=== PATIENT | male | born 1940 | race Caucasian/White ===

== ENCOUNTER 2016-05-11 16:54 | Emergency (ER) | payer OTHER, MEDICARE ==
[~2016-05-11] VITALS: Ht 182.9 cm; Wt 105.0 kg
[~2016-05-11 16:54] MED LIST: ASPI81 PO; BUPR-197 PO; COUM5TAB PO; DIAZ5 PO; DOCU100T9 PO; EX-L5TAB PO; FISH1000 PO; FURO1TAB93 PO; LISI-360 PO; METO10TA PO; METO25 PO; MULT1TAB PO; OXYC-103 PO; PRAV80 PO; PROT40TA PO; QUET100 PO; SERT-132 PO; TERA2CAP3 PO; ULTR50TA PO; WAL-10TA2 PO; WARF2.5T40 PO; ZOFR4TAB3 SL
[2016-05-11 17:04] VITALS: BP 118/69; PULSE 62; RESP 16; TEMP 98.3; O2SAT 94
[2016-05-11] MEDS ORDERED: SERT-129 PO (17:23)
[2016-05-11] MEDS ORDERED: WARF-23 PO (17:23)
[2016-05-11] MEDS ORDERED: PRAV40TA2 PO (17:23)
[2016-05-11] MEDS ORDERED: BETA0.1C TOPICAL (17:23)
[2016-05-11] MEDS ORDERED: DOCU100C PO (17:23)
[2016-05-11] MEDS ORDERED: OMEP20TA PO (17:23)
[2016-05-11] MEDS ORDERED: TERA2CAP3 PO (17:23)
[2016-05-11] MEDS ORDERED: ASPI1TAB69 PO (17:23)
[2016-05-11] MEDS ORDERED: DIAZ5TAB PO (17:23)
[2016-05-11] MEDS ORDERED: QUET-86 PO (17:23)
[2016-05-11] MEDS ORDERED: METO25TA6 PO (17:23)
[2016-05-11] MEDS ORDERED: LORA-361 PO (17:23)
[2016-05-11] MEDS ORDERED: BISA1TAB2 PO (17:23)
[2016-05-11] MEDS ORDERED: FURO40TA PO (17:23)
[2016-05-11] MEDS ORDERED: LISI-515 PO (17:23)
[2016-05-11] MEDS ORDERED: CARB1DRO17 EACH EYE (17:23)
--- NOTE | 2016-05-11 17:31 | PD ---
HPI Chief Complaint: Fall Time Seen by Provider: 17:11 Travel History International Travel<30 days: No Contact w/Intl Traveler<30days: No Traveled to known affect area: No History of Present Illness HPI This patient complains of head injury. Duration 1 hour. Symptoms severity is mild to moderate. This patient takes Coumadin for cardiac reasons. Patient slipped and fell and hit the left side of his head just past his ear. He did not have loss of consciousness. He does have a mild to moderate headache on the left side. There is no neck symptoms. This is not a distracting injury. He reiterates there were no pre-syncopal symptoms but had a mechanical slip and fall. No alleviating factors. PFSH Past Medical History Hx Anticoagulant Therapy: Yes (COUMADIN) AAA: Yes Arthritis: Yes Atrial Fibrillation: Yes Bipolar Disorder: Yes Anxiety: Yes Depression: Yes Heart Rhythm Problems: Yes Cardiac Catheterization: Yes Cardiovascular Problems: Yes High Cholesterol: Yes Chest Pain: Yes Congestive Heart Failure: Yes Coronary Artery Disease: Yes Diminished Hearing: Yes (BILAT HEARING AIDS) Diverticulitis: Yes Gastrointestinal Disorders: Yes GERD: Yes Gout: Yes Genitourinary: Yes (ENLARGED PROSTATE) Hypertension: Yes Implanted Vascular Access Dvce: No Psychiatric: Yes (DEPRESSION) Immunizations Current: Yes Myocardial Infarction: Yes (x1) Pneumonia: Yes Sleep Apnea: Yes (CPAP) PNEUMOCCOCAL Vaccine (Year): 2008 Past Surgical History Abdominal Surgery: Yes (POLYPS AND PORTION OF BOWEL REMOVAL) AICD: Yes Appendectomy: Yes Cardiac Surgery: Yes (PACEMAKER/DEFIB) Coronary Artery Bypass Graft: Yes (DOUBLE BYPASS WITH AORTIC VALVE REPLACEMENT) Coronary Stent: Yes Genitourinary Surgery: Yes (POLYPS REMOVED) Neurologic Surgery: No Pacemaker: Yes (MAR 2013) Tonsillectomy: Yes Valve Replacement: Yes Other Surgery: Yes (LEFT GREAT TOE) Social History Alcohol Use: No Tobacco Use: No (QUIT 20 + YRS AGO SMOKED 1 PPD) Substance Use: No Allergies-Medications (Allergen,Severity, Reaction): Coded Allergies: Dilaudid (Verified Allergy, Severe, Nausea/Vomiting, 05/11/16) Kiwi (Verified Allergy, Severe, RASH, 05/11/16) Neosporin (Verified Allergy, Severe, Rash, 05/11/16) Tetanus Toxoid (Verified Allergy, Severe, HIVES, 05/11/16) Reported Meds & Prescriptions Reported Meds & Active Scripts Active Zofran Odt (Ondansetron Odt) 4 Mg Tab 4 Mg SL Q6HR PRN Percocet (Oxycodone-Acetaminophen) 5-325 mg Tab 1 Tab PO Q6H PRN Reported Warfarin 5 Mg Tab 5 Mg PO DAILY Terazosin (Terazosin HCl) 2 Mg Cap 6 Mg PO HS Sertraline (Sertraline HCl) 100 Mg Tab 150 Mg PO DAILY Quetiapine ER (Quetiapine Fumarate) 50 Mg Tab 50 Mg PO HS Pravastatin 40 Mg Tab 40 Mg PO HS Omeprazole 20 Mg Tab 20 Mg PO DAILY Metoprolol Succinate ER 24 HR (Metoprolol Succinate) 25 Mg Tab 25 Mg PO DAILY Claritin (Loratadine) 10 Mg Tab 10 Mg PO DAILY Lisinopril 20 Mg Tab 20 Mg PO DAILY Furosemide 40 Mg Tab 40 Mg PO DAILY Docusate Sodium 100 Mg Cap 100 Mg PO BID Diazepam 5 Mg Tab 5 Mg PO TID PRN Eq Restore Plus Lubricant (Carboxymethylcellulose Sodium) 0.5 % Jacoby 1 Drop EACH EYE QID Eq Gentle Laxative (Bisacodyl) 5 Mg Tab 5 Mg PO DIRECTED Betamethasone Valerate Topical 0.1% Cream 1 Applic TOPICAL BID Aspirin 81 Mg Tabdr 81 Mg PO DAILY Review of Systems General / Constitutional: No: Fever Eyes: No: Visual changes HENT: Positive: Headaches Cardiovascular: No: Chest Pain or Discomfort Respiratory: No: Shortness of Breath Gastrointestinal: No: Abdominal Pain Genitourinary: No: Dysuria Musculoskeletal: No: Pain Skin: No Rash Neurologic: Positive: Headache, No: Weakness Psychiatric: No: Depression Endocrine: No: Polydipsia Hematologic/Lymphatic: No: Easy Bruising Physical Exam Narrative GENERAL: Well-nourished, well-developed patient in no apparent distress. SKIN: Warm and dry. HEAD: Has 3 cm laceration behind the left ear. No crepitus or bony tenderness. Normocephalic. EYES: Pupils equal and round. No scleral icterus. No injection or drainage. ENT: No nasal bleeding or discharge. Mucous membranes pink and moist. NECK: Trachea midline. No JVD. No midline tenderness CARDIOVASCULAR: Regular rate and rhythm. No murmur appreciated. RESPIRATORY: No accessory muscle use. Clear to auscultation. Breath sounds equal bilaterally. GASTROINTESTINAL: Abdomen soft, non-tender, nondistended. Hepatic and splenic margins not palpable. MUSCULOSKELETAL: No obvious deformities. No clubbing. No cyanosis. No edema. NEUROLOGICAL: Awake and alert. No obvious cranial nerve deficits. Motor grossly within normal limits. Normal speech. PSYCHIATRIC: Appropriate mood and affect; insight and judgment normal. Data Data Last Documented VS Vital Signs Date Time Temp Pulse Resp B/P Pulse Ox O2 Delivery O2 Flow Rate FiO2 05/11/16 17:35 16 05/11/16 17:04 98.3 62 118/69 94 Orders Complete Blood Count With Diff (05/11/16 17:26) Basic Metabolic Panel (Bmp) (05/11/16 17:26) Prothrombin Time / Inr (Pt) (05/11/16 17:26) Iv Access Insert/Monitor (05/11/16 17:26) Ct Brain W/O Iv Contrast(Rout) (05/11/16 ) Acetamin-Hydrocod 325-5 Mg (Nichols 5-325 (05/11/16 18:45) Ondansetron Odt (Zofran Odt) (05/11/16 18:45) Labs Laboratory Tests Test 05/11/16 17:45 White Blood Count 7.2 TH/MM3 Red Blood Count 5.02 MIL/MM3 Hemoglobin 14.4 GM/DL Hematocrit 42.6 % Mean Corpuscular Volume 84.8 FL Mean Corpuscular Hemoglobin 28.7 PG Mean Corpuscular Hemoglobin 33.8 % Concent Red Cell Distribution Width 12.4 % Platelet Count 155 TH/MM3 Mean Platelet Volume 7.6 FL Neutrophils (%) (Auto) 66.4 % Lymphocytes (%) (Auto) 13.8 % Monocytes (%) (Auto) 9.2 % Eosinophils (%) (Auto) 10.0 % Basophils (%) (Auto) 0.6 % Neutrophils # (Auto) 4.8 TH/MM3 Lymphocytes # (Auto) 1.0 TH/MM3 Monocytes # (Auto) 0.7 TH/MM3 Eosinophils # (Auto) 0.7 TH/MM3 Basophils # (Auto) 0.0 TH/MM3 CBC Comment DIFF FINAL Differential Comment Prothrombin Time 27.6 SEC Prothromb Time International 2.4 RATIO Ratio Sodium Level 145 MEQ/L Potassium Level 3.7 MEQ/L Chloride Level 110 MEQ/L Carbon Dioxide Level 27.0 MEQ/L Anion Gap 8 MEQ/L Blood Urea Nitrogen 26 MG/DL Creatinine 1.60 MG/DL Estimat Glomerular Filtration 42 ML/MIN Rate Random Glucose 116 MG/DL Calcium Level 8.7 MG/DL [facility] Medical Decision Making Medical Screen Exam Complete: Yes Emergency Medical Condition: Yes Medical Record Reviewed: Yes Differential Diagnosis Skull fracture, intracranial hemorrhage, contusion Narrative Course I have reviewed the patient's electronic medical record. Last seen here December 2015. There is no Recent brain imaging Patient had a mechanical fall with head injury and headache on blood thinner He is neurologically intact Brain CT is normal IV placed CBC is normal Metabolic profile is reasonably normal INR on Coumadin is 2.4 Procedure note: Patient gives verbal consent to laceration repair. I cleaned the area thoroughly with normal saline. No active bleeding or arterial involvement. We discussed anesthetizing but he thought he could do fine without it. I closed the wound with 5 joe He tolerated it well Currently no bleeding Recommend staple removal in 10 days On recheck he feels improved. I did give him 2 pain pills and a dose of nausea medication and wrote him a few of each on prescription Diagnosis Primary Impression: Head injury due to trauma Qualified Code: S09.90XA - Head injury due to trauma, initial encounter Additional Impressions: Headache Qualified Code: G44.319 - Acute post-traumatic headache, not intractable History of Coumadin therapy Additional Instructions: The patient was advised to follow up with their physician and return if they worsen. The patient was warned about potential sedation for the medications they will receive on prescription. Staple removal in 10 days Med/Other Pt SpecificInfo: Prescription(s) given Scripts Ondansetron Odt (Zofran Odt)4 Mg Tab4 Mg SL Q6HR PRN (Nausea/Vomiting) #10 TAB Ref 0 Prov:Ilir Boss MD 05/11/16 Oxycodone-Acetaminophen (Percocet)5-325 mg Tab1 Tab PO Q6H PRN (PAIN) #12 TAB Ref 0 Prov:Ilir Boss MD 05/11/16 Disposition: LEFT WITHOUT BEING SEEN Ilir Boss MD May 11, 2016 17:31
[2016-05-11 17:56] LABS: AUTOMATED NEUTROPHIL # 4.8 TH/MM3 (1.8-7.7); BASOPHIL % 0.6 % (0.0-2.0); EOSINOPHIL # 0.7 TH/MM3 (0-0.4); HEMATOCRIT 42.6 % (39.0-51.0); HEMO FLAGS DIFF FINAL; LYMPH % 13.8 % (9.0-44.0); MEAN CELL VOLUME 84.8 FL (80.0-100.0); MEAN CORPUSCULAR HEMOGLOBIN 28.7 PG (27.0-34.0); MEAN CORPUSCULAR HGB CONC 33.8 % (32.0-36.0); MONO % 9.2 % (0.0-8.0); NEUT % 66.4 % (16.0-70.0); PLATELET COUNT 155 TH/MM3 (150-450); RED BLOOD COUNT 5.02 MIL/MM3 (4.50-5.90); RED CELL DISTRIBUTION WIDTH 12.4 % (11.6-17.2); WHITE BLOOD COUNT 7.2 TH/MM3 (4.0-11.0)
[2016-05-11 18:04] LABS: POTASSIUM 3.7 MEQ/L (3.5-5.1)
[2016-05-11 18:08] LABS: INTERNATIONAL NORMALIZED RATIO 2.4 RATIO; PROTHROMBIN TIME - PATIENT 27.6 SEC (9.8-11.6)
--- NOTE | 2016-05-11 18:12 | RADHPO ---
EXAM DATE/TIME: 05/11/2016 17:47 [facility] COMPARISON: CT BRAIN W/O CONTRAST, July 23, 2011, 15:52. INDICATIONS : Fall, laceration to left side. RADIATION DOSE: 59.95 CTDIvol (mGy) MEDICAL HISTORY : Cardiovascular disease. SURGICAL HISTORY : None. ENCOUNTER: Initial ACUITY: 1 day PAIN SCALE: 5/10 LOCATION: cranial TECHNIQUE: Multiple contiguous axial images were obtained of the head. Using automated exposure control and adj ustment of the mA and/or kV according to patient size, radiation dose was kept as low as reasonably a chievable to obtain optimal diagnostic quality images. FINDINGS: CEREBRUM: The ventricles are normal for age. No evidence of midline shift, mass lesion, hemorrhage or acute in farction. No extra-axial fluid collections are seen. Chronic periventricular white matter low-attenu ation noted. POSTERIOR FOSSA: The cerebellum and brainstem are intact. The 4th ventricle is midline. The cerebellopontine angle i s unremarkable. EXTRACRANIAL: There is mild mucoperiosteal thickening of the visualized maxillary air cells. SKULL: The calvaria is intact. No evidence of skull fracture. CONCLUSION: No bleed or other acute intracranial abnormality. Chronic white matter changes. Mild sinus disease. Jeb López MD on May 11, 2016 at 18:09 Board Certified Radiologist. This report was verified electronically.
[2016-05-11] MEDS ORDERED: PERC5TAB12 PO (18:45)
[2016-05-11] MEDS ORDERED: ONDANSETRON ODT 4 MG TAB PO ONE (18:45)
[2016-05-11] MEDS ORDERED: ZOFR4TAB3 SL (18:45)
[2016-05-11] MEDS ORDERED: ACETAMINOPHEN/HYDROcodone 325 MG/5 MG TAB PO ONE (18:45)
[2016-05-11 19:05] VITALS: BP 137/67; PULSE 65; RESP 16; O2SAT 94
[2016-05-11 20:05] VITALS: BP 125/64; PULSE 63; RESP 16; O2SAT 93
[2016-05-11 20:15] VITALS: RESP 16
== END 2016-05-11 20:29 | disposition home or self-care (01) ==
LOC: PHED 16:54
DX: S01.81XA Laceration without foreign body of other part of head, initial encounter (principal); R51 Headache; I48.91 Unspecified atrial fibrillation; E78.00 Pure hypercholesterolemia, unspecified; I50.9 Heart failure, unspecified; I10 Essential (primary) hypertension; I25.10 Atherosclerotic heart disease of native coronary artery without angina pectoris; H91.93 Unspecified hearing loss, bilateral; I25.2 Old myocardial infarction; Z95.1 Presence of aortocoronary bypass graft; Z95.0 Presence of cardiac pacemaker; Z95.810 Presence of automatic (implantable) cardiac defibrillator; Z95.2 Presence of prosthetic heart valve; Z79.01 Long term (current) use of anticoagulants; W01.0XXA Fall on same level from slipping, tripping and stumbling without subsequent striking against object, initial encounter; Y93.9 Activity, unspecified; Y92.9 Unspecified place or not applicable
CPT/HCPCS: 12013; 70450; 80048; 85025; 85610

== ENCOUNTER 2016-07-08 14:07 | Inpatient (IN) | payer OTHER, MEDICARE ==
[~2016-07-08] VITALS: Ht 182.9 cm; Wt 112.6 kg
[~2016-07-08 14:07] MED LIST changes: +ASPI1TAB69 PO; -ASPI81 PO; +BETA0.1C TOPICAL; +BISA1TAB2 PO; -BUPR-197 PO; +CARB1DRO17 EACH EYE; -COUM5TAB PO; -DIAZ5 PO; +DIAZ5TAB PO; +DOCU100C PO; -DOCU100T9 PO; -EX-L5TAB PO; -FISH1000 PO; -FURO1TAB93 PO; +FURO40TA PO; -LISI-360 PO; +LISI-515 PO; +LORA-361 PO; -METO10TA PO; -METO25 PO; +METO25TA6 PO; -MULT1TAB PO; +OMEP20TA PO; -OXYC-103 PO; +PERC5TAB12 PO; +PRAV40TA2 PO; -PRAV80 PO; -PROT40TA PO; +QUET-86 PO; -QUET100 PO; +SERT-129 PO; -SERT-132 PO; -ULTR50TA PO; -WAL-10TA2 PO; +WARF-23 PO; -WARF2.5T40 PO
[2016-07-08 14:10] VITALS: BP 138/91; PULSE 72; RESP 17; TEMP 97.6; O2SAT 98
--- NOTE | 2016-07-08 14:16 | PD ---
Physical Exam Time Seen by Provider: 14:13 Narrative 75 y/o male presents for evaluation of an area of skin redness/soft tissue swelling for several days. Placed on antibiotics at the [facility], sent here for worsening symptoms. Vital signs reviewed. Seen at triage desk. Awaiting bed placement. Data Data Last Documented VS Vital Signs Date Time Temp Pulse Resp B/P Pulse Ox O2 Delivery O2 Flow Rate FiO2 07/08/16 14:10 97.6 72 17 138/91 98 MDM Medical Record Reviewed: Yes Supervised Visit with ROSE: Antonio Bunn July 08, 2016 14:16
[2016-07-08] MEDS ORDERED: VANCOMYCIN INJ 1,000 MG in SODIUM CHLOR 0.9% 250 ML INJ 250 ML IV ONE (15:30)
--- NOTE | 2016-07-08 16:20 | PD ---
HPI Chief Complaint: Skin Problem Time Seen by Provider: 15:20 Travel History International Travel<30 days: No Contact w/Intl Traveler<30days: No Traveled to known affect area: No History of Present Illness HPI 75-year-old male came to the emergency room with history of cellulitis on his right shoulder area overlying the scapula. Patient says that this started a little over a week ago when initially it was red. After a day or 2 it became like a boil. Soon after that it popped and a lot of pus came out. He went to see his primary care [facility] and was started on antibiotic. Patient says that it continues to drain and when he went to see his primary care back again today they took a look at it and asked them to come to the emergency room. Patient says that [facility] was supposed to call in to let us know about him coming in. However I have not received a phone call or any information regarding this patient before hand. Patient denies any fever or chills. Vital signs in triage was within normal limits. [facility] Past Medical History Narrative Medical List of his past medical, surgical, social and family history was reviewed from the nursing note. Hx Anticoagulant Therapy: Yes (COUMADIN) AAA: Yes Arthritis: Yes Atrial Fibrillation: Yes Bipolar Disorder: Yes Anxiety: Yes Depression: Yes Heart Rhythm Problems: Yes Cancer: Yes (skin) Cardiac Catheterization: Yes Cardiovascular Problems: Yes (afib/ pacemaker/defib/aortic valve replaced/ AAA) High Cholesterol: Yes Chest Pain: Yes Congestive Heart Failure: Yes Coronary Artery Disease: Yes Diabetes: No Diminished Hearing: Yes (BILAT HEARING AIDS) Diverticulitis: Yes Gastrointestinal Disorders: Yes GERD: Yes Gout: Yes Genitourinary: Yes (ENLARGED PROSTATE) Hypertension: Yes Implanted Vascular Access Dvce: No Psychiatric: Yes (DEPRESSION) Immunizations Current: Yes Myocardial Infarction: Yes (x1) Pneumonia: Yes Sleep Apnea: Yes (CPAP) PNEUMOCCOCAL Vaccine (Year): 2008 Past Surgical History Abdominal Surgery: Yes (POLYPS AND PORTION OF BOWEL REMOVAL) AICD: Yes Appendectomy: Yes Cardiac Surgery: Yes (PACEMAKER/DEFIB) Coronary Artery Bypass Graft: Yes (DOUBLE BYPASS WITH AORTIC VALVE REPLACEMENT) Coronary Stent: Yes Genitourinary Surgery: Yes (POLYPS REMOVED) Neurologic Surgery: No Pacemaker: Yes (MAR 2013) Tonsillectomy: Yes Valve Replacement: Yes Other Surgery: Yes (LEFT GREAT TOE, cyst removed from back) Social History Alcohol Use: Yes (occas. mix drinks) Tobacco Use: No (QUIT 30 + YRS AGO SMOKED 1 PPD) Substance Use: No Allergies-Medications (Allergen,Severity, Reaction): Coded Allergies: Dilaudid (Verified Allergy, Severe, Nausea/Vomiting, 05/11/16) Kiwi (Verified Allergy, Severe, RASH, 05/11/16) Neosporin (Verified Allergy, Severe, Rash, 05/11/16) Tetanus Toxoid (Verified Allergy, Severe, HIVES, 05/11/16) Comments List of his allergies reviewed from the nursing note. Reported Meds & Prescriptions Reported Meds & Active Scripts Active Reported Warfarin 5 Mg Tab 2.5 Mg PO WEDNESDAY Take 1/2 tablet (2.5mg) daily on Wednesdays Preservision Areds 2 (Multiple Vitamins W/ Minerals) 1 Cap 1 Cap PO BID Hydrocortisone Topical 2.5% Cream 1 Applic TOPICAL BID PRN Diclofenac Topical 1% Gel 1 Applic TOPICAL Q6HR PRN Apply sparingly to rt ankle joint-apply with gloves or applicator Betamethasone Valerate Topical 0.1% Lotn 1 Applic TOPICAL BID Apply to scalp irritation Warfarin 5 Mg Tab 5 Mg PO SUMOTUTHFRSA Take 1 tablet (5mg) daily on Wednesday,Wednesday,Wednesday,,Wednesday and Wednesday Terazosin (Terazosin HCl) 2 Mg Cap 6 Mg PO HS Sertraline (Sertraline HCl) 100 Mg Tab 150 Mg PO DAILY Quetiapine ER (Quetiapine Fumarate) 50 Mg Tab 50 Mg PO HS Pravastatin 40 Mg Tab 40 Mg PO HS Omeprazole 20 Mg Tab 20 Mg PO DAILY Metoprolol Succinate ER 24 HR (Metoprolol Succinate) 25 Mg Tab 25 Mg PO DAILY Claritin (Loratadine) 10 Mg Tab 10 Mg PO DAILY Lisinopril 20 Mg Tab 20 Mg PO DAILY Furosemide 40 Mg Tab 40 Mg PO DAILY PRN Docusate Sodium 100 Mg Cap 100 Mg PO BID Diazepam 5 Mg Tab 5 Mg PO TID PRN Eq Restore Plus Lubricant (Carboxymethylcellulose Sodium) 0.5 % Jacoby 1 Drop EACH EYE QID Eq Gentle Laxative (Bisacodyl) 5 Mg Tab 5 Mg PO HS PRN Betamethasone Valerate Topical 0.1% Cream 1 Applic TOPICAL BID Aspirin 81 Mg Tabdr 81 Mg PO DAILY Narrative Medication List of his home medications reviewed from the nursing note. Review of Systems Except as stated in HPI: all other systems reviewed are Neg Physical Exam Narrative GENERAL: Awake, alert, elderly, anxious, mild distress SKIN: Focused skin assessment warm/dry. Erythema over the right scapular area extending to about 5 x 5 cm. There is central excoriation of the skin on multiple areas that is oozing clear serous fluid. This is tender to touch. No fluctuance underneath. HEAD: Atraumatic. Normocephalic. EYES: Pupils equal and round. No scleral icterus. No injection or drainage. ENT: No nasal bleeding or discharge. Mucous membranes pink and moist. NECK: Trachea midline. No JVD. CARDIOVASCULAR: Regular rate and rhythm. No murmur appreciated. RESPIRATORY: No accessory muscle use. Clear to auscultation. Breath sounds equal bilaterally. GASTROINTESTINAL: Abdomen soft, non-tender, nondistended. Hepatic and splenic margins not palpable. MUSCULOSKELETAL: No obvious deformities. No clubbing. No cyanosis. No edema. NEUROLOGICAL: Awake and alert. No obvious cranial nerve deficits. Motor grossly within normal limits. Normal speech. PSYCHIATRIC: Appropriate mood and affect; insight and judgment normal. Data Data Last Documented VS Vital Signs Date Time Temp Pulse Resp B/P Pulse Ox O2 Delivery O2 Flow Rate FiO2 07/08/16 14:10 97.6 72 17 138/91 98 Orders Basic Metabolic Panel (Bmp) (07/08/16 15:21) Complete Blood Count With Diff (07/08/16 15:21) Blood Culture (07/08/16 15:21) Wound Culture And Gram Stain (07/08/16 15:21) Vancomycin Inj (Vancomycin Inj) (07/08/16 15:30) Prothrombin Time / Inr (Pt) (07/08/16 15:21) Admit Order (Ed Use Only) (07/08/16 17:24) Sodium Chlor 0.9% 1000 Ml Inj (Ns 1000 M (07/08/16 17:30) Labs Laboratory Tests Test 07/08/16 15:51 White Blood Count 4.3 TH/MM3 Red Blood Count 5.14 MIL/MM3 Hemoglobin 14.8 GM/DL Hematocrit 43.5 % Mean Corpuscular Volume 84.6 FL Mean Corpuscular Hemoglobin 28.7 PG Mean Corpuscular Hemoglobin 34.0 % Concent Red Cell Distribution Width 13.7 % Platelet Count 132 TH/MM3 Mean Platelet Volume 8.3 FL Neutrophils (%) (Auto) 53.3 % Lymphocytes (%) (Auto) 27.8 % Monocytes (%) (Auto) 8.6 % Eosinophils (%) (Auto) 8.8 % Basophils (%) (Auto) 1.5 % Neutrophils # (Auto) 2.3 TH/MM3 Lymphocytes # (Auto) 1.2 TH/MM3 Monocytes # (Auto) 0.4 TH/MM3 Eosinophils # (Auto) 0.4 TH/MM3 Basophils # (Auto) 0.1 TH/MM3 CBC Comment DIFF FINAL Differential Comment Prothrombin Time 38.1 SEC Prothromb Time International 3.3 RATIO Ratio Sodium Level 146 MEQ/L Potassium Level 4.4 MEQ/L Chloride Level 110 MEQ/L Carbon Dioxide Level 29.3 MEQ/L Anion Gap 7 MEQ/L Blood Urea Nitrogen 27 MG/DL Creatinine 1.49 MG/DL Estimat Glomerular Filtration 46 ML/MIN Rate Random Glucose 111 MG/DL Calcium Level 8.6 MG/DL [facility] Medical Decision Making Medical Screen Exam Complete: Yes Emergency Medical Condition: Yes Medical Record Reviewed: Yes Differential Diagnosis Cellulitis, outpatient antibiotic. Narrative Course 4:19 PM patient was given IV vancomycin. Awaiting for the blood test results to come back. There was a wound culture done by me and will be sent. Patient will require to be admitted for outpatient treatment failure. 5:15 PM chemistry suggestive of hyponatremic dehydration. He will be given a liter of IV fluid bolus. Procedures EKG Prior to Arrival: No Diagnosis Primary Impression: Cellulitis Qualified Code: L03.312 - Cellulitis of back except buttock Additional Impression: Failure of outpatient treatment Admitting Information Admitting Physician Requests: Admit Ghanshyam Peterson MD July 08, 2016 16:20 Ghanshyam Peterson MD July 08, 2016 16:20
[2016-07-08 16:48] LABS: AUTOMATED NEUTROPHIL # 2.3 TH/MM3 (1.8-7.7); BASOPHIL # 0.1 TH/MM3 (0-0.2); BASOPHIL % 1.5 % (0.0-2.0); EOSINOPHIL # 0.4 TH/MM3 (0-0.4); EOSINOPHIL % 8.8 % (0.0-4.0); HEMATOCRIT 43.5 % (39.0-51.0); HEMO FLAGS DIFF FINAL; LYMPH % 27.8 % (9.0-44.0); LYMPHOCYTE # 1.2 TH/MM3 (1.0-4.8); MEAN CELL VOLUME 84.6 FL (80.0-100.0); MEAN CORPUSCULAR HEMOGLOBIN 28.7 PG (27.0-34.0); MONO % 8.6 % (0.0-8.0); NEUT % 53.3 % (16.0-70.0); PLATELET COUNT 132 TH/MM3 (150-450); RED BLOOD COUNT 5.14 MIL/MM3 (4.50-5.90); RED CELL DISTRIBUTION WIDTH 13.7 % (11.6-17.2); WHITE BLOOD COUNT 4.3 TH/MM3 (4.0-11.0)
[2016-07-08 17:00] LABS: INTERNATIONAL NORMALIZED RATIO 3.3 RATIO; PROTHROMBIN TIME - PATIENT 38.1 SEC (9.8-11.6)
[2016-07-08 17:09] LABS: BICARBONATE 29.3 MEQ/L (21.0-32.0); POTASSIUM 4.4 MEQ/L (3.5-5.1)
[2016-07-08] MEDS ORDERED: PRESCAP5 PO (17:13)
[2016-07-08] MEDS ORDERED: HYDR2.5C TOPICAL (17:13)
[2016-07-08] MEDS ORDERED: CEPH-460 PO (17:13)
[2016-07-08] MEDS ORDERED: DICL1GEL7 TOPICAL (17:13)
[2016-07-08] MEDS ORDERED: BETA0.1L TOPICAL (17:13)
[2016-07-08] MEDS ORDERED: WARF-23 PO (17:13)
[2016-07-08] MEDS ORDERED: SODIUM CHLOR 0.9% 1000 ML INJ 1,000 ML IV ONE (17:30)
[2016-07-08 17:35] VITALS: BP 130/76; PULSE 76; RESP 18; O2SAT 98
[2016-07-08] MEDS: SODIUM CHLOR 0.9% 1000 ML INJ 1,000 ML IV SCH (18:08)
[2016-07-08] MEDS ORDERED: ACETAMINOPHEN 325 MG TAB PO PRN (18:15)
[2016-07-08] MEDS ORDERED: NALOXONE HCL 0.4 MG/ML AMP IV PRN (18:15)
[2016-07-08] MEDS ORDERED: ACETAMINOPHEN/HYDROcodone 325 MG/5 MG TAB PO PRN (18:15)
[2016-07-08] MEDS ORDERED: ONDANSETRON HCL 4 MG/2 ML VIAL IVP PRN (18:15)
[2016-07-08] MEDS ORDERED: SODIUM CHLORIDE 0.9% FLUSH 10 ML FLUSH IV FLUSH PRN (18:15)
--- NOTE | 2016-07-08 18:53 | HHI.HP ---
HPI Service [facility] Hospitalists Primary Care Physician [facility] Admission Diagnosis cellulitis, outpatient treatment failure, hypernatremic dehydration Diagnoses: Chief Complaint: Cellulitis, failed outpatient treatment Travel History International Travel<30 Days: No Contact w/Intl Traveler <30 Da: No Traveled to Known Affected Are: No History of Present Illness This is a 35-year-old male with past medical history of hypertension, atrial fibrillation on Coumadin, coronary artery disease status post previous UT , bypass surgery, aortic valve replacement, pacemaker placement, AAA and BPH who presents to [facility] ED with complaints of cellulitis on his right shoulder/upper back overlying the scapula. Patient reports he developed a boil on the back of the shoulder proximally a week ago it was about the size of a quarter. A few days later, it popped began to drain pus. On 07/03/16, patient was started on Keflex by his [place] physician. Despite taking the antibiotics, the area continues to enlarge with persistent drainage. Patient was seen back in his [place] physicians office today and was instructed to come to the emergency room. Patient reports associated discomfort but states it's not too bothersome. He denies any recent illness. He denies any trauma to the area or known bite. Denies any associated fever, chills, nausea or vomiting. Patient states he has an upcoming "green light" surgery on Wednesday at [facility] in [place] for his BPH. Patient denies any dizziness, headache, shortness of breath, chest pain or abdominal pain. Review of Systems Except as stated in HPI: all other systems reviewed are Neg Past Family Social History Past Medical History Atrial fibrillation on Coumadin Hypertension Previous pacemaker implantation Coronary artery disease status post previous [place] CABG AVR CHF CRI Bipolar Anxiety BPH Depression GERD Past Surgical History AVR Pacemaker implantation CABG Previous colonoscopy status post polypectomy removal and subsequent abdominal laparoscopy for a polyp that could not be reached and the colonoscopy as it was adjacent to the appendix with continent and appendectomy and 4 inch bowel resection Bilateral rotator cuff repairs Knee surgery Tonsillectomy Reported Medications Warfarin 5 Mg Tab 2.5 Mg PO WEDNESDAY Take 1/2 tablet (2.5mg) daily on Wednesdays Preservision Areds 2 (Multiple Vitamins W/ Minerals) 1 Cap 1 Cap PO BID Hydrocortisone Topical 2.5% Cream 1 Applic TOPICAL BID PRN Diclofenac Topical 1% Gel 1 Applic TOPICAL Q6HR PRN Apply sparingly to rt ankle joint-apply with gloves or applicator Betamethasone Valerate Topical 0.1% Lotn 1 Applic TOPICAL BID Apply to scalp irritation Keflex (Cephalexin) 500 Mg Cap 500 Mg PO Q12H Warfarin 5 Mg Tab 5 Mg PO SUMOTUTHFRSA Take 1 tablet (5mg) daily on Wednesday,Wednesday,Wednesday,,Wednesday and Wednesday Terazosin (Terazosin HCl) 2 Mg Cap 6 Mg PO HS Sertraline (Sertraline HCl) 100 Mg Tab 150 Mg PO DAILY Quetiapine ER (Quetiapine Fumarate) 50 Mg Tab 50 Mg PO HS Pravastatin 40 Mg Tab 40 Mg PO HS Omeprazole 20 Mg Tab 20 Mg PO DAILY Metoprolol Succinate ER 24 HR (Metoprolol Succinate) 25 Mg Tab 25 Mg PO DAILY Claritin (Loratadine) 10 Mg Tab 10 Mg PO DAILY Lisinopril 20 Mg Tab 20 Mg PO DAILY Furosemide 40 Mg Tab 40 Mg PO DAILY PRN Docusate Sodium 100 Mg Cap 100 Mg PO BID Diazepam 5 Mg Tab 5 Mg PO TID PRN Eq Restore Plus Lubricant (Carboxymethylcellulose Sodium) 0.5 % Jacoby 1 Drop EACH EYE QID Eq Gentle Laxative (Bisacodyl) 5 Mg Tab 5 Mg PO HS PRN Betamethasone Valerate Topical 0.1% Cream 1 Applic TOPICAL BID Aspirin 81 Mg Tabdr 81 Mg PO DAILY Allergies: Coded Allergies: Dilaudid (Verified Allergy, Severe, Nausea/Vomiting, 05/11/16) Kiwi (Verified Allergy, Severe, RASH, 05/11/16) Neosporin (Verified Allergy, Severe, Rash, 05/11/16) Tetanus Toxoid (Verified Allergy, Severe, HIVES, 05/11/16) Active Ordered Medications Current Medications Medications (Trade) Dose Ordered Sig/Ceci Route Start Time Stop Time Status Last Admin (NS 1000 ml Inj) 1,000 ml @ 999 mls/hr BOLUS ONCE IV 07/08/16 17:30 07/08/16 18:30 07/08/16 17:31 Family History CAD Father, due to pneumonia Mother, due to cancer Social History Patient is and lives with . Patient quit smoking over 30 years ago. He reports occasional alcohol consumption. He denies any illicit drug use. Physical Exam Vital Signs Vital Signs Date Time Temp Pulse Resp B/P Pulse Ox O2 Delivery O2 Flow Rate FiO2 07/08/16 14:10 97.6 72 17 138/91 98 Physical Exam GENERAL: Well-nourished, well-developed patient in NAD. Awake and alert. is at the bedside. SKIN: Erythema over the right scapular area extending to about 5 x 5 cm. There is central excoriation of the skin on multiple areas that is oozing clear serous fluid. (+)tenderness to palpation. Questionable fluctuance underneath. BLEs with scattered hyperpigmented macular rash. HEAD: Atraumatic. Normocephalic. EYES: Pupils equal and round. No scleral icterus. No injection or drainage. ENT: No nasal bleeding or discharge. Mucous membranes slightly dry. NECK: Trachea midline. Supple. CARDIOVASCULAR: Regular rate and rhythm. No murmur appreciated. RESPIRATORY: No accessory muscle use. Clear to auscultation. Breath sounds equal bilaterally. GASTROINTESTINAL: Abdomen soft, non-tender, nondistended. No guarding or rigidity. MUSCULOSKELETAL: No obvious deformities. Extremities without clubbing, cyanosis , or edema. NEUROLOGICAL: Awake and alert. No obvious cranial nerve deficits. Motor grossly within normal limits. Normal speech. PSYCHIATRIC: Appropriate mood and affect; insight and judgment normal. Laboratory Laboratory Tests Test 07/08/16 15:51 White Blood Count 4.3 Red Blood Count 5.14 Hemoglobin 14.8 Hematocrit 43.5 Mean Corpuscular Volume 84.6 Mean Corpuscular Hemoglobin 28.7 Mean Corpuscular Hemoglobin 34.0 Concent Red Cell Distribution Width 13.7 Platelet Count 132 Mean Platelet Volume 8.3 Neutrophils (%) (Auto) 53.3 Lymphocytes (%) (Auto) 27.8 Monocytes (%) (Auto) 8.6 Eosinophils (%) (Auto) 8.8 Basophils (%) (Auto) 1.5 Neutrophils # (Auto) 2.3 Lymphocytes # (Auto) 1.2 Monocytes # (Auto) 0.4 Eosinophils # (Auto) 0.4 Basophils # (Auto) 0.1 CBC Comment DIFF FINAL Differential Comment Prothrombin Time 38.1 Prothromb Time International 3.3 Ratio Sodium Level 146 Potassium Level 4.4 Chloride Level 110 Carbon Dioxide Level 29.3 Anion Gap 7 Blood Urea Nitrogen 27 Creatinine 1.49 Estimat Glomerular Filtration 46 Rate Random Glucose 111 Calcium Level 8.6 Date/Time Procedure Status Source Growth 07/08/16 15:50 Aerobic Blood Culture Received Blood Peripheral Pending 07/08/16 15:50 Anaerobic Blood Culture Received Blood Peripheral Pending 07/08/16 15:45 Gram Stain Received Wound Back Pending 07/08/16 15:45 Wound Culture Received Wound Back Pending Result Diagram: 07/08/16 1551 07/08/16 1551 Assessment and Plan Assessment and Plan 35-year-old male with past medical history of hypertension, atrial fibrillation on Coumadin, coronary artery disease status post previous UT, bypass surgery, aortic valve replacement, pacemaker placement, AAA and BPH who presents to [facility] ED with complaints of cellulitis on his right shoulder/upper back overlying the scapula. //Cellulitis, failed outpatient treatment - Admit - IV Zoysn - Patient is afebrile with normal white count - Follow up on wound and blood culture results - Soft tissue US to assess for any underlying fluid collection/abscess - pain management //CRI - creatinine 1.49, unsure of patients baseline - IVF - avoid nephrotoxic agents - am labs to monitor //CAD/HTN/AAA/previous CABG/AVR/pacemaker implantation - Resume home antihypertensive medications - ASA daily - monitor BP and adjust treatment as indicated - Heart healthy diet //Afib on Coumadin - rate controlled - INR 3.3, hold Warfarin, pharmacy to dose, INR in am //CHF - resume home Lasix - monitor electrolytes - monitor for signs of fluid overload //Hypernatremia - mild - Possibly due to dehydration and/or infection - IVF - am labs to monitor //Thrombocytopenia - mild, platelets 132 - possibly secondary to infection - am labs to monitor //Depression/Anxiety/Bipolar - resume home meds //BPH - scheduled for urologic surgery on Wednesday in [place] - continue with home meds //GERD - resume home PPI //Dermatological rash in bilateral lower extremity - Resume topical hydrocortisone //Dyslipidemia - Resume home statin //DVT prophylaxis - Patient on Coumadin Discussed with Dr. Braswell, patient and The exam, history, and the medical decision-making described in the above note were completed with the assistance of the mid-level provider. I reviewed and agree with the findings presented. I attest that I had a [id number] encounter with the patient on the same day, and personally performed and documented my assessment and findings in the medical record. 75 years old male history of CAD post CABG, DM, obstructive uropathy secondary to BPH [facility] about a week ago quarter size wound on the right upper back--- [facility]- given course of Keflex- applied warm compress- initially pus expressed out. erythema - persisit with induration left upper back- with area of induration about wuarter size with erythematous surrounding A/P= Left upper back Abscess with surrounding cellutlitis - started on antibitoics IV, US ordered to furte evaluate- ? need for I and D continue all other home meds Other chronic medical condtion stable Discussed Condition With patient and Physician Certification 2 Midnight Certification Type: Admission for Inpatient Services Order for Inpatient Services The services are ordered in accordance with Medicare regulations or non- Medicare payer requirements, as applicable. In the case of services not specified as inpatient-only, they are appropriately provided as inpatient services in accordance with the 2-midnight benchmark. Estimated LOS (days): 3 days is the estimated time the patient will need to remain in the hospital, assuming treatment plan goals are met and no additional complications. Post-Hospital Plan: Not yet determined Ale Segura July 08, 2016 18:53 Isabelle Braswell MD July 08, 2016 18:56
--- NOTE | 2016-07-08 19:32 | RADRPT ---
EXAM DATE/TIME: 07/08/2016 18:52 [place] COMPARISON: No previous studies available for comparison. INDICATIONS : Fluid collection. MEDICAL HISTORY : Aneurysm, abdominal. Myocardial infarction. Congestive heart failure. Afib. CAD. Hypercholesterolemia . Chest pain. HTN. Pneumonia. Sleep apnea. Diverticulitis. GERD. Enlarged prostate. Arthritis. Gout. Skin cancer. Bipolar disorder. Depression. Anxiety. Anticoagulant therapy, Coumadin. SURGICAL HISTORY : Tonsillectomy. Pacemaker. Abdominal aortic aneurysm repair. Aortic valve replacement. CABG. Cardiac c ath. Coronary stent. Polyps and portion of bowel removed. Appendectomy. Bilateral rotator cuff repair . Left knee. Left great toe. Cyst removed from back. ENCOUNTER: Initial ACUITY: 4-6 days PAIN SCORE: 2/10 LOCATION: Right back. AREA EVALUATED: Right superior back/ shoulder blade FINDINGS: A targeted ultrasound examination was performed on the right superior back and shoulder blade. This d emonstrates an ill-defined complex heterogeneous area measuring up to 1.8 x 1.5 x 0.7 cm. There is a smaller cystic structure within this area measuring 8 x 4 x 7 mm. This is located in the subcutaneous fat. CONCLUSION: Ill-defined focal heterogeneous area with smaller apparent cystic structure. This is nonspecific but could represent a hematoma or seroma. Valentin Quinones MD on July 08, 2016 at 19:28 Board Certified Radiologist. This report was verified electronically.
[2016-07-08] MEDS ORDERED: FUROSEMIDE 40 MG TAB PO PRN (19:45)
[2016-07-08 20:35] VITALS: BP 161/91; PULSE 65; RESP 16; TEMP 97.3; O2SAT 95
[2016-07-08] MEDS: TRIAMCINOLONE ACETONIDE 0.1% CREAM 15 GM TOPICAL SCH (21:00)
[2016-07-08] MEDS: SODIUM CHLORIDE 0.9% FLUSH 10 ML FLUSH IV FLUSH SCH (21:00)
[2016-07-08] MEDS: TERAZOSIN HCL 5 MG CAP PO SCH (22:47)
[2016-07-08] MEDS: DIAZEPAM 5 MG TAB PO PRN (22:47)
[2016-07-08] MEDS: QUEtiapine FUMARATE 25 MG TAB PO SCH (22:47)
[2016-07-08] MEDS: PRAVASTATIN SOD 40 MG TAB PO SCH (22:48)
[2016-07-08] MEDS: TERAZOSIN HCL 1 MG CAP PO SCH (22:48)
[2016-07-08] MEDS: PIPERACIL-TAZO 4.5 GM PREMIX 100 ML IV SCH (22:49)
[2016-07-08] MEDS: DOCUSATE SODIUM 100 MG CAP PO SCH (22:49)
[2016-07-08] MEDS: CARBOXYMETHYLCELL SOD 0.5% OPTH SOLN 15 ML BTL EACH EYE SCH (23:05)
[2016-07-08] MEDS: MULTIVITAMIN-OPHTHALMIC 1 TAB PO SCH (23:05)
[2016-07-08 23:34] VITALS: BP 122/71; PULSE 59; RESP 16; TEMP 98.1; O2SAT 93
[2016-07-09] MEDS: PIPERACIL-TAZO 4.5 GM PREMIX 100 ML IV SCH ×4 (02:49→21:16)
[2016-07-09 03:53] VITALS: BP 109/64; PULSE 54; RESP 16; TEMP 97.4; O2SAT 92
[2016-07-09] MEDS: SODIUM CHLOR 0.9% 1000 ML INJ 1,000 ML IV SCH (04:08)
[2016-07-09 07:14] LABS: AUTOMATED NEUTROPHIL # 1.9 TH/MM3 (1.8-7.7); EOSINOPHIL # 0.4 TH/MM3 (0-0.4); EOSINOPHIL % 10.8 % (0.0-4.0); HEMATOCRIT 39.5 % (39.0-51.0); HEMO FLAGS DIFF FINAL; LYMPH % 28.5 % (9.0-44.0); LYMPHOCYTE # 1.1 TH/MM3 (1.0-4.8); MEAN CELL VOLUME 84.7 FL (80.0-100.0); MONO % 11.4 % (0.0-8.0); NEUT % 48.3 % (16.0-70.0); PLATELET COUNT 118 TH/MM3 (150-450); RED BLOOD COUNT 4.67 MIL/MM3 (4.50-5.90); RED CELL DISTRIBUTION WIDTH 13.6 % (11.6-17.2); WHITE BLOOD COUNT 3.9 TH/MM3 (4.0-11.0)
[2016-07-09 07:24] LABS: INTERNATIONAL NORMALIZED RATIO 3.1 RATIO; PROTHROMBIN TIME - PATIENT 35.5 SEC (9.8-11.6)
[2016-07-09 07:38] LABS: ALT (GPT) 20 U/L (12-78); ANION GAP 4 MEQ/L (5-15); AST (GOT) 71 U/L (15-37); BICARBONATE 29.2 MEQ/L (21.0-32.0); BLOOD UREA NITROGEN 25 MG/DL (7-18); CHLORIDE 114 MEQ/L (98-107); GLOMERULAR FILTRATION RATE 48 ML/MIN (>89); POTASSIUM 4.4 MEQ/L (3.5-5.1); SODIUM (NA) 147 MEQ/L (136-145)
[2016-07-09 07:41] LABS: ALKALINE PHOSPHATASE 81 U/L (45-117); TOTAL BILIRUBIN ADULT 0.6 MG/DL (0.2-1.0)
[2016-07-09 08:00] VITALS: BP 155/81; PULSE 61; RESP 20; TEMP 97.5; O2SAT 95
[2016-07-09] MEDS: DOCUSATE SODIUM 100 MG CAP PO SCH ×2 (08:45→21:16)
[2016-07-09] MEDS: METOPROLOL SUCCINATE 25 MG EXTENDED RELEASE TAB PO SCH (08:46)
[2016-07-09] MEDS: ASPIRIN EC 81 MG TABEC PO SCH (08:46)
[2016-07-09] MEDS: MULTIVITAMIN-OPHTHALMIC 1 TAB PO SCH ×2 (08:46→21:16)
[2016-07-09] MEDS: LORATADINE 10 MG TAB PO SCH (08:46)
[2016-07-09] MEDS: PANTOPRAZOLE SOD 20 MG DELAYED RELEASE TAB PO SCH (08:46)
[2016-07-09] MEDS: LISINOPRIL 20 MG TAB PO SCH (08:46)
[2016-07-09] MEDS: SERTRALINE HCL 50 MG TAB PO SCH (08:47)
[2016-07-09] MEDS: SODIUM CHLORIDE 0.9% FLUSH 10 ML FLUSH IV FLUSH SCH ×2 (08:48→21:00)
[2016-07-09] MEDS: QUEtiapine FUMARATE 25 MG TAB PO SCH ×2 (08:48→21:16)
[2016-07-09] MEDS: CARBOXYMETHYLCELL SOD 0.5% OPTH SOLN 15 ML BTL EACH EYE SCH ×4 (08:49→21:17)
[2016-07-09] MEDS: TRIAMCINOLONE ACETONIDE 0.1% CREAM 15 GM TOPICAL SCH ×2 (08:50→21:00)
[2016-07-09 12:00] VITALS: BP 155/79; PULSE 64; RESP 20; TEMP 98.1; O2SAT 95
--- NOTE | 2016-07-09 12:13 | HHI.PR ---
Subjective Remarks upper back - no pain Objective Vitals Vital Signs Date Time Temp Pulse Resp B/P Pulse Ox O2 Delivery O2 Flow Rate FiO2 07/09/16 08:00 97.5 61 20 155/81 95 07/09/16 03:53 Room Air 07/09/16 03:53 97.4 54 16 109/64 92 07/08/16 23:34 98.1 59 16 122/71 93 07/08/16 23:34 Room Air 07/08/16 20:35 97.3 65 16 161/91 95 07/08/16 20:35 Room Air 07/08/16 17:35 76 18 130/76 98 Room Air 07/08/16 14:10 97.6 72 17 138/91 98 I/O 07/08/16 07/08/16 07/08/16 07/09/16 07/09/16 07/09/16 07:00 15:00 23:00 07:00 15:00 23:00 Intake Total 1028 ml Output Total 0 ml Balance 1028 ml Intake Oral 240 ml IV Total 788 ml Output Urine Total 0 ml # Bowel Movements 0 Result Diagram: 07/09/16 0625 07/09/16 0625 Imaging Last Impressions Soft Tissue Ultrasound 07/08/16 0000 Signed Impressions: Service Date/Time: Friday, July 08, 2016 18:52 - CONCLUSION: Ill-defined focal heterogeneous area with smaller apparent cystic structure. This is nonspecific but could represent a hematoma or seroma. Valentin Quinones MD Objective Remarks awake and alert, oriented x 3 anicteric Upper back- right with induration with surrounding erythema, now not draining lungs clear regular rhythm abdomen soft, nontender extremities no edema A/P Assessment and Plan 35-year-old male with past medical history of hypertension, atrial fibrillation on Coumadin, coronary artery disease status post previous [place], bypass surgery, aortic valve replacement, pacemaker placement, AAA and BPH who presents to [facility] ED with complaints of cellulitis on his right shoulder/upper back overlying the scapula. Upper back Abscess with Cellulitis failed outpatient treatment - IV Zoysn - Follow up on wound and blood culture results- no growth - Soft tissue US to assess for any underlying fluid collection/abscess- + collection- suggestive of seroma - pain management - wound care daily- CLEANSE WOUND TO R UPPER BACK WITH NORMAL SALINE AND APPLY MAXORB AG PLEASE COVER WITH DRY COVER DRESSING AND CHANGE EVERY OTHER DAY GS consult- need for further I and D //CRI - creatinine 1.49, unsure of patients baseline- likely baseline with history of BPH - non oliguric - avoid nephrotoxic agents - am labs to monitor //CAD/HTN/AAA/previous CABG/AVR/pacemaker implantation - Resume home antihypertensive medications - ASA daily - monitor BP and adjust treatment as indicated - Heart healthy diet //Afib on Coumadin - rate controlled - INR 3.1, hold Warfarin, pharmacy to dose, INR in am //CHF - resume home Lasix - monitor electrolytes - monitor for signs of fluid overload //Hypernatremia - mild - Possibly due to dehydration and/or infection - IVF- change to 03/09 - am labs to monitor //Thrombocytopenia - mild, platelets 132 - possibly secondary to infection - am labs to monitor //Depression/Anxiety/Bipolar - resume home meds //BPH - scheduled for urologic surgery on Wednesday in [place] - continue with home meds //GERD - resume home PPI //Dermatological rash in bilateral lower extremity - Resume topical hydrocortisone //Dyslipidemia - Resume home statin //DVT prophylaxis - Patient on Coumadin Discussed with Dr. Braswell, patient and The exam, history, and the medical decision-making described in the above note were completed with the assistance of the mid-level provider. I reviewed and agree with the findings presented. I attest that I had a [id number] encounter with the patient on the same day, and personally performed and documented my assessment and findings in the medical record. 75 years old male history of CAD post CABG, DM, obstructive uropathy secondary to BPH due [facility] evaluation about a week ago quarter size wound on the right upper back--- [facility]- given course of Keflex- applied warm compress- initially pus expressed out. erythema - persisit with induration left upper back- with area of induration about wuarter size with erythematous surrounding A/P= Left upper back Abscess with surrounding cellutlitis - started on antibitoics IV, US ordered to furtehr evaluate- ? need for I and D continue all other home meds Other chronic medical condtion stable Isabelle Braswell MD July 09, 2016 12:13
[2016-07-09] MEDS: SODIUM CHLOR 0.45% 1000 ML INJ 1,000 ML IV SCH ×2 (13:31→22:45)
[2016-07-09 16:00] VITALS: BP 164/86; PULSE 63; RESP 18; TEMP 97.7; O2SAT 97
--- NOTE | 2016-07-09 18:09 | PD.ID.CON ---
History of Present Illness Service ID Consult Requested By Dr Braswell Reason for Consult abscess R shoulder Primary Care Physician [facility] Diagnoses: History of Present Illness 75 yo with multiple med problems presented with worsening pain, redness swelling and some drainage in R scapula region over 1 week Had taken Keflex without improvement No fever No leukocytosis His w/u included ultrasound that showed Ill-defined focal heterogeneous area with smaller apparent cystic structure Pt is a very poor historian and most of history was obtained from chart review Review of Systems Except as stated in HPI: all other systems reviewed are Neg Past Family Social History Allergies: Coded Allergies: Dilaudid (Verified Allergy, Severe, Nausea/Vomiting, 05/11/16) Kiwi (Verified Allergy, Severe, RASH, 05/11/16) Neosporin (Verified Allergy, Severe, Rash, 05/11/16) Tetanus Toxoid (Verified Allergy, Severe, HIVES, 05/11/16) Past Medical History Atrial fibrillation on Coumadin Hypertension Previous pacemaker implantation Coronary artery disease status post previous [place] CABG AVR CHF CRI Bipolar Anxiety BPH Depression GERD Past Surgical History AVR Pacemaker implantation CABG Previous colonoscopy status post polypectomy removal and subsequent abdominal laparoscopy for a polyp that could not be reached and the colonoscopy as it was adjacent to the appendix with continent and appendectomy and 4 inch bowel resection Bilateral rotator cuff repairs Knee surgery Tonsillectomy Active Ordered Medications Medications where reviewed in EMR Antibiotics Include: yasirn Family History CAD Father, due to pneumonia Mother, due to cancer Social History Patient is and lives with . Patient quit smoking over 30 years ago. He reports occasional alcohol consumption. He denies any illicit drug use. Physical Exam Vital Signs Vital Signs Date Time Temp Pulse Resp B/P Pulse Ox O2 Delivery O2 Flow Rate FiO2 07/09/16 16:00 97.7 63 18 164/86 97 07/09/16 15:24 Nasal Cannula 2.00 07/09/16 12:00 98.1 64 20 155/79 95 07/09/16 08:00 97.5 61 20 155/81 95 07/09/16 03:53 Room Air 07/09/16 03:53 97.4 54 16 109/64 92 07/08/16 23:34 98.1 59 16 122/71 93 07/08/16 23:34 Room Air 07/08/16 20:35 97.3 65 16 161/91 95 07/08/16 20:35 Room Air Physical Exam CONSTITUTIONAL/GENERAL: This is an adequately nourished patient, in no apparent distress. SKIN: No jaundice, rashes, Large area of erythema, tenderness small opening with small amount of serosangious dc + thick sebacious secret Multipe seboreic keratitis lesions HEAD: Atraumatic. Normocephalic. EYES: Pupils equal and round and reactive. Extraocular motions intact. No scleral icterus. No injection or drainage. Fundi not examined. ENT: Hearing grossly normal. Nose without bleeding or purulent drainage. Throat without visible erythema, exudates, masses, or lesions. NECK: Trachea midline. Supple, nontender CARDIOVASCULAR: Regular rate and rhythm without murmurs, gallops, or rubs. No JVD. Peripheral pulses symmetric. RESPIRATORY/CHEST: Symmetric, unlabored respirations. Clear to auscultation. Breath sounds equal bilaterally. No wheezes, rales, or rhonchi. GASTROINTESTINAL: Abdomen soft, non-tender, nondistended. No hepato-splenomegaly , or palpable masses. No guarding. Bowel sounds present. GENITOURINARY: Without palpable bladder distension. MUSCULOSKELETAL: Extremities without clubbing, cyanosis, or edema. NEUROLOGICAL: Awake and alert. Motor and sensory grossly within normal limits. Follows commands. Cognitively sharp. Moves all extremities. PSYCHIATRIC: No obvious anxiety/depression. no apparent hallucinations or other psychotic thought process. Laboratory Laboratory Tests Test 07/09/16 06:25 White Blood Count 3.9 Red Blood Count 4.67 Hemoglobin 13.0 Hematocrit 39.5 Mean Corpuscular Volume 84.7 Mean Corpuscular Hemoglobin 28.0 Mean Corpuscular Hemoglobin 33.0 Concent Red Cell Distribution Width 13.6 Platelet Count 118 Mean Platelet Volume 8.2 Neutrophils (%) (Auto) 48.3 Lymphocytes (%) (Auto) 28.5 Monocytes (%) (Auto) 11.4 Eosinophils (%) (Auto) 10.8 Basophils (%) (Auto) 1.0 Neutrophils # (Auto) 1.9 Lymphocytes # (Auto) 1.1 Monocytes # (Auto) 0.4 Eosinophils # (Auto) 0.4 Basophils # (Auto) 0.0 CBC Comment DIFF FINAL Differential Comment Prothrombin Time 35.5 Prothromb Time International 3.1 Ratio Sodium Level 147 Potassium Level 4.4 Chloride Level 114 Carbon Dioxide Level 29.2 Anion Gap 4 Blood Urea Nitrogen 25 Creatinine 1.44 Estimat Glomerular Filtration 48 Rate Random Glucose 84 Calcium Level 8.2 Total Bilirubin 0.6 Aspartate Amino Transf 71 (AST/SGOT) Alanine Aminotransferase 20 (ALT/SGPT) Alkaline Phosphatase 81 Total Protein 6.0 Albumin 3.2 Date/Time Procedure Status Source Growth 07/08/16 15:50 Aerobic Blood Culture - Preliminary Resulted Blood Peripheral NO GROWTH IN 1 DAY 07/08/16 15:50 Anaerobic Blood Culture - Preliminary Resulted Blood Peripheral NO GROWTH IN 1 DAY 07/08/16 15:45 Gram Stain - Final Resulted Wound Back 07/08/16 15:45 Wound Culture - Preliminary Resulted Wound Back NO GROWTH IN 24 HOURS. Result Diagram: 07/09/16 0625 07/09/16 0625 Imaging Last Impressions Soft Tissue Ultrasound 07/08/16 0000 Signed Impressions: Service Date/Time: Friday, July 08, 2016 18:52 - CONCLUSION: Ill-defined focal heterogeneous area with smaller apparent cystic structure. This is nonspecific but could represent a hematoma or seroma. Valentin Quinones MD Assessment and Plan Assessment and Plan Infected sebatious cyst, probably staph R scapula area - cont vancomycin - consult gen sx for I+D Lorraine Sylvester MD July 09, 2016 18:09
[2016-07-09 20:10] VITALS: BP 159/90; PULSE 65; RESP 16; TEMP 97.5; O2SAT 96
[2016-07-09] MEDS: DIAZEPAM 5 MG TAB PO PRN (21:16)
[2016-07-09] MEDS: TERAZOSIN HCL 1 MG CAP PO SCH (21:17)
[2016-07-09] MEDS: PRAVASTATIN SOD 40 MG TAB PO SCH (21:17)
[2016-07-09] MEDS: TERAZOSIN HCL 5 MG CAP PO SCH (21:17)
[2016-07-09] MEDS ORDERED: LIDOCAINE HCL 1% 20 ML VIAL INFIL ONE (22:15)
[2016-07-09] MEDS ORDERED: LIDOCAINE HCL 1% 50 ML VIAL ONE (22:16)
[2016-07-09 23:13] VITALS: BP 128/74; PULSE 51; RESP 16; TEMP 97.9; O2SAT 94
[2016-07-10] MEDS: PIPERACIL-TAZO 4.5 GM PREMIX 100 ML IV SCH ×4 (02:25→20:01)
[2016-07-10 03:48] VITALS: BP 132/76; PULSE 51; RESP 16; TEMP 97.7; O2SAT 92
--- NOTE | 2016-07-10 06:27 | MP ---
cc: MALLORY GEORGES DATE OF SURGERY 07/09/2016 PREOPERATIVE DIAGNOSIS Infected sebaceous cyst of right upper back. POSTOPERATIVE DIAGNOSIS Infected sebaceous cyst of right upper back. PROCEDURE Incision and drainage of infected sebaceous cyst. ATTENDING SURGEON MD Isabel ANESTHESIA 1% lidocaine. BLOOD LOSS 10 cc. COMPLICATIONS None. FINDINGS Some purulence and debris consistent with sebaceous cyst. INDICATIONS FOR PROCEDURE The patient is a 75-year-old male admitted to the hospital with cellulitis and hypernatremia and increased INR. The patient underwent evaluation by Infectious Disease and was found to have cellulitis associated with an infected sebaceous cyst. General Surgery was consulted for evaluation and possible drainage. The patient was seen and evaluated and drainage of the right upper right back sebaceous cyst was discussed with the patient and informed consent was obtained. PROCEDURE The patient underwent sterile prepping and draping of the right upper back at the bedside after a time-out was performed. Local 1% lidocaine was instilled in the area of the planned incision. A 2-cm horizontal incision was made with a 15 blade scalpel over the patient's cellulitis and draining sinus tract. This was debrided and irrigated out with sterile Q-tips, swabs as well as saline. We once we had adequate complete drainage of this sebaceous cyst cavity and with good debridement of any retained debris, we packed this with sterile gauze. We placed a pressure dressing. Culture was also sent during this time. The patient tolerated the procedure well. No apparent complications. I was present for the above procedure. We recommend continued twice daily dressing changes until the wound is healed. Recommend following up with the patient's primary care doctor or hack driver or Surgery as an outpatient for followup on a p.r.n. basis. We will sign off. Mallory Georges MD AWG/SSB /1:20 AM /6:23 AM
[2016-07-10 08:00] VITALS: BP 136/73; PULSE 64; RESP 18; TEMP 97.7; O2SAT 94
[2016-07-10] MEDS: LISINOPRIL 20 MG TAB PO SCH (08:35)
[2016-07-10] MEDS: PANTOPRAZOLE SOD 20 MG DELAYED RELEASE TAB PO SCH (08:35)
[2016-07-10] MEDS: QUEtiapine FUMARATE 25 MG TAB PO SCH ×2 (08:35→20:03)
[2016-07-10] MEDS: LORATADINE 10 MG TAB PO SCH (08:35)
[2016-07-10] MEDS: ASPIRIN EC 81 MG TABEC PO SCH (08:35)
[2016-07-10] MEDS: SERTRALINE HCL 50 MG TAB PO SCH (08:35)
[2016-07-10] MEDS: METOPROLOL SUCCINATE 25 MG EXTENDED RELEASE TAB PO SCH (08:35)
[2016-07-10] MEDS: DOCUSATE SODIUM 100 MG CAP PO SCH ×2 (08:35→20:03)
[2016-07-10] MEDS: SODIUM CHLORIDE 0.9% FLUSH 10 ML FLUSH IV FLUSH SCH ×2 (08:35→20:01)
[2016-07-10] MEDS: MULTIVITAMIN-OPHTHALMIC 1 TAB PO SCH ×2 (08:35→20:03)
[2016-07-10] MEDS: SODIUM CHLOR 0.45% 1000 ML INJ 1,000 ML IV SCH (08:36)
[2016-07-10] MEDS: CARBOXYMETHYLCELL SOD 0.5% OPTH SOLN 15 ML BTL EACH EYE SCH ×4 (08:43→20:01)
[2016-07-10] MEDS: TRIAMCINOLONE ACETONIDE 0.1% CREAM 15 GM TOPICAL SCH ×2 (08:44→20:03)
[2016-07-10 09:21] LABS: INTERNATIONAL NORMALIZED RATIO 2.4 RATIO; PROTHROMBIN TIME - PATIENT 27.3 SEC (9.8-11.6)
--- NOTE | 2016-07-10 10:32 | HHI.PR ---
Subjective Remarks no pain complains on scapular area, no diarrhea, voiding spontaneously no complains of fever or chills Objective Vitals Vital Signs Date Time Temp Pulse Resp B/P Pulse Ox O2 Delivery O2 Flow Rate FiO2 07/10/16 09:28 Room Air 07/10/16 08:00 97.7 64 18 136/73 94 07/10/16 03:48 Room Air 07/10/16 03:48 97.7 51 16 132/76 92 07/09/16 23:13 97.9 51 16 128/74 94 07/09/16 23:13 Room Air 07/09/16 20:10 97.5 65 16 159/90 96 07/09/16 20:10 Room Air 07/09/16 16:00 97.7 63 18 164/86 97 07/09/16 15:24 Nasal Cannula 2.00 07/09/16 12:00 98.1 64 20 155/79 95 I/O 07/09/16 07/09/16 07/09/16 07/10/16 07/10/16 07/10/16 07:00 15:00 23:00 07:00 15:00 23:00 Intake Total 1028 ml 600 ml 1314 ml 0 ml Output Total 0 ml 325 ml 200 ml 250 ml Balance 1028 ml 275 ml 1114 ml -250 ml Intake Oral 240 ml 600 ml 360 ml 0 ml IV Total 788 ml 954 ml Output Urine Total 0 ml 325 ml 200 ml 250 ml # Voids 1 # Bowel Movements 0 1 0 0 Result Diagram: 07/09/16 0625 07/09/16 0625 Imaging Last Impressions Soft Tissue Ultrasound 07/08/16 0000 Signed Impressions: Service Date/Time: Friday, July 08, 2016 18:52 - CONCLUSION: Ill-defined focal heterogeneous area with smaller apparent cystic structure. This is nonspecific but could represent a hematoma or seroma. Valentin Quinones MD Objective Remarks awake and alert, oriented x 3 anicteric Upper back- open wound S/P I and D with packing, blood on dressing lungs clear regular rhythm abdomen soft, nontender extremities no edema Procedures 07/09- I and D right upper scapular abscess A/P Assessment and Plan 75-year-old male with past medical history of hypertension, atrial fibrillation on Coumadin, coronary artery disease status post previous [place], bypass surgery, aortic valve replacement, pacemaker placement, AAA and BPH who presents to [facility] ED with complaints of cellulitis on his right shoulder/upper back overlying the scapula. Upper back Abscess with Cellulitis failed outpatient treatment S/P I and D 07/09 - IV [email or web address] and GS ff - Follow up on wound and blood culture results- - pain management - wound care daily- CLEANSE WOUND TO R UPPER BACK WITH NORMAL SALINE AND APPLY MAXORB AG PLEASE COVER WITH DRY COVER DRESSING AND CHANGE EVERY OTHER DAY - blood noted on packing- monitor- patient on coumadin //CRI - creatinine 1.49, unsure of patients baseline- likely baseline with history of BPH - non oliguric - avoid nephrotoxic agents - recheck labs //CAD/HTN/AAA/previous CABG/AVR/pacemaker implantation - Resume home antihypertensive medications - ASA daily - monitor BP and adjust treatment as indicated - Heart healthy diet //Afib on Coumadin- initial INR 3.3 - rate controlled - INR down to 2.4 . restart coumadin home dose. FF INR with IV antibiotics //CHF - resume home Lasix - monitor electrolytes - monitor for signs of fluid overload //Hypernatremia - mild - Possibly due to dehydration and/or infection - IVF- change to 03/09- discontinue - recheck labs today //Thrombocytopenia - mild, platelets 132 - possibly secondary to infection - monitor //Depression/Anxiety/Bipolar - resume home meds //BPH - scheduled for urologic surgery on Wednesday in [place] - continue with home meds //GERD - resume home PPI //Dermatological rash in bilateral lower extremity- chronic - Resume topical hydrocortisone //Dyslipidemia - Resume home statin //DVT prophylaxis - Patient on Coumadin- resume INR less than 3 Isabelle Braswell MD July 10, 2016 10:32
--- NOTE | 2016-07-10 11:51 | HHI.PR ---
Addendum to Inpatient Note Additional Information growing staph sp drainage by Dr Hall Pt can be d/c'd when surgical team clears him Anticipate po abx per C+S Lorraine Sylvester MD July 10, 2016 11:51
[2016-07-10 12:00] VITALS: BP 133/76; PULSE 62; RESP 18; TEMP 97.5; O2SAT 95
[2016-07-10 14:53] LABS: AUTOMATED NEUTROPHIL # 2.6 TH/MM3 (1.8-7.7); BASOPHIL # 0.1 TH/MM3 (0-0.2); BASOPHIL % 1.3 % (0.0-2.0); EOSINOPHIL # 0.4 TH/MM3 (0-0.4); EOSINOPHIL % 8.3 % (0.0-4.0); HEMO FLAGS DIFF FINAL; LYMPHOCYTE # 1.5 TH/MM3 (1.0-4.8); MEAN CORPUSCULAR HEMOGLOBIN 28.7 PG (27.0-34.0); MEAN CORPUSCULAR HGB CONC 34.2 % (32.0-36.0); MONO % 9.6 % (0.0-8.0); NEUT % 50.8 % (16.0-70.0); PLATELET COUNT 138 TH/MM3 (150-450); RED BLOOD COUNT 4.88 MIL/MM3 (4.50-5.90); RED CELL DISTRIBUTION WIDTH 13.5 % (11.6-17.2); WHITE BLOOD COUNT 5.1 TH/MM3 (4.0-11.0)
[2016-07-10 15:22] LABS: BICARBONATE 28.8 MEQ/L (21.0-32.0); POTASSIUM 4.2 MEQ/L (3.5-5.1)
[2016-07-10 16:00] VITALS: BP 135/76; PULSE 62; RESP 18; TEMP 97.8; O2SAT 95
[2016-07-10] MEDS ORDERED: WARFARIN SOD 2.5 MG TAB PO SCH (16:00)
[2016-07-10 20:00] VITALS: BP 128/74; PULSE 60; RESP 18; TEMP 97.9; O2SAT 93
[2016-07-10] MEDS: TERAZOSIN HCL 1 MG CAP PO SCH (20:02)
[2016-07-10] MEDS: TERAZOSIN HCL 5 MG CAP PO SCH (20:02)
[2016-07-10] MEDS: PRAVASTATIN SOD 40 MG TAB PO SCH (20:03)
[2016-07-10] MEDS ORDERED: Vancomycin Consult Pharmacy 1 EA OTHER SCH (22:30)
[2016-07-10] MEDS: VANCOMYCIN INJ 1,600 MG in SODIUM CHLORID 0.9% 500 ML INJ 500 ML IV SCH (23:08)
[2016-07-11] VITALS: BP 137/80; PULSE 54; RESP 17; TEMP 97.8; O2SAT 97
[2016-07-11] MEDS: SODIUM CHLOR 0.45% 1000 ML INJ 1,000 ML IV SCH (00:26)
[2016-07-11 04:00] VITALS: BP 135/75; PULSE 65; RESP 20; TEMP 98; O2SAT 94
[2016-07-11 07:11] LABS: PROTHROMBIN TIME - PATIENT 22.6 SEC (9.8-11.6)
[2016-07-11 08:02] VITALS: BP 166/88; PULSE 64; RESP 16; TEMP 98; O2SAT 93
[2016-07-11] MEDS: TRIAMCINOLONE ACETONIDE 0.1% CREAM 15 GM TOPICAL SCH ×2 (09:00→21:00)
[2016-07-11] MEDS: MULTIVITAMIN-OPHTHALMIC 1 TAB PO SCH ×2 (09:00→21:35)
[2016-07-11] MEDS: SODIUM CHLORIDE 0.9% FLUSH 10 ML FLUSH IV FLUSH SCH ×2 (09:00→21:00)
[2016-07-11] MEDS: LORATADINE 10 MG TAB PO SCH (09:50)
[2016-07-11] MEDS: METOPROLOL SUCCINATE 25 MG EXTENDED RELEASE TAB PO SCH (09:50)
[2016-07-11] MEDS: SERTRALINE HCL 50 MG TAB PO SCH (09:50)
[2016-07-11] MEDS: DOCUSATE SODIUM 100 MG CAP PO SCH ×2 (09:50→21:35)
[2016-07-11] MEDS: QUEtiapine FUMARATE 25 MG TAB PO SCH ×2 (09:50→21:35)
[2016-07-11] MEDS: PANTOPRAZOLE SOD 20 MG DELAYED RELEASE TAB PO SCH (09:50)
[2016-07-11] MEDS: ASPIRIN EC 81 MG TABEC PO SCH (09:50)
[2016-07-11] MEDS: LISINOPRIL 20 MG TAB PO SCH (09:51)
[2016-07-11] MEDS: CARBOXYMETHYLCELL SOD 0.5% OPTH SOLN 15 ML BTL EACH EYE SCH ×4 (09:52→21:00)
[2016-07-11 12:02] VITALS: BP 148/80; PULSE 51; RESP 17; TEMP 97.5; O2SAT 93
--- NOTE | 2016-07-11 13:12 | HHI.PR ---
Subjective Remarks minimal pain right upper back- drain in place- no pus, minimal blood Objective Vitals Vital Signs Date Time Temp Pulse Resp B/P Pulse Ox O2 Delivery O2 Flow Rate FiO2 07/11/16 08:02 98.0 64 16 166/88 93 07/11/16 08:00 Room Air 07/11/16 04:00 98.0 65 20 135/75 94 07/11/16 00:00 97.8 54 17 137/80 97 07/10/16 20:00 97.9 60 18 128/74 93 07/10/16 20:00 Room Air 07/10/16 16:00 97.8 62 18 135/76 95 I/O 07/10/16 07/10/16 07/10/16 07/11/16 07/11/16 07/11/16 07:00 15:00 23:00 07:00 15:00 23:00 Intake Total 0 ml 480 ml 320 ml 360 ml Output Total 250 ml 525 ml 200 ml 275 ml Balance -250 ml -45 ml 120 ml 85 ml Intake Oral 0 ml 480 ml 320 ml 360 ml Output Urine Total 250 ml 525 ml 200 ml 275 ml # Voids 1 # Bowel Movements 0 1 0 Result Diagram: 07/10/16 1443 07/11/16 0630 Imaging Last Impressions Soft Tissue Ultrasound 07/08/16 0000 Signed Impressions: Service Date/Time: Friday, July 08, 2016 18:52 - CONCLUSION: Ill-defined focal heterogeneous area with smaller apparent cystic structure. This is nonspecific but could represent a hematoma or seroma. Valentin Quinones MD Objective Remarks awake and alert, oriented x 3 anicteric Upper back- open wound S/P I and D - no pus, minimal blood lungs clear regular rhythm abdomen soft, nontender extremities no edema Procedures 07/09- I and D right upper scapular abscess A/P Assessment and Plan 75-year-old male with past medical history of hypertension, atrial fibrillation on Coumadin, coronary artery disease status post previous [place], bypass surgery, aortic valve replacement, pacemaker placement, AAA and BPH who presents to [facility] ED with complaints of cellulitis on his right shoulder/upper back overlying the scapula. Upper back Abscess with Cellulitis failed outpatient treatment S/P I and D 07/09 - Follow up on wound and blood culture results- negative so far - pain management - wound care daily- CLEANSE WOUND TO R UPPER BACK WITH NORMAL SALINE AND APPLY MAXORB AG PLEASE COVER WITH DRY COVER DRESSING AND CHANGE EVERY OTHER DAY //CRI - creatinine 1.49, unsure of patients baseline- likely baseline with history of BPH - non oliguric - avoid nephrotoxic agents - recheck labs //CAD/HTN/AAA/previous CABG/AVR/pacemaker implantation - Resume home antihypertensive medications - ASA daily - monitor BP and adjust treatment as indicated - Heart healthy diet //Afib on Coumadin- initial INR 3.3 - rate controlled - INR down to 2.4 . restart coumadin home dose 5 mg daily //CHF - resume home Lasix - monitor electrolytes - monitor for signs of fluid overload //Hypernatremia resolved //Thrombocytopenia - mild, platelets 132 - possibly secondary to infection - monitor //Depression/Anxiety/Bipolar - resume home meds //BPH - scheduled for urologic surgery on Wednesday in [place] - continue with home meds //GERD - resume home PPI //Dermatological rash in bilateral lower extremity- chronic - Resume topical hydrocortisone //Dyslipidemia - Resume home statin //DVT prophylaxis - Patient on Coumadin- Isabelle Braswell MD July 11, 2016 13:12 Isabelle Braswell MD July 11, 2016 13:12
[2016-07-11] MEDS ORDERED: WARFARIN SOD 4 MG TAB PO SCH (16:00)
[2016-07-11] MEDS ORDERED: WARFARIN SOD 5 MG TAB PO SCH (16:00)
[2016-07-11 16:02] VITALS: BP 168/92; PULSE 65; RESP 17; TEMP 98.1; O2SAT 94
[2016-07-11 20:00] VITALS: BP 157/91; PULSE 62; RESP 16; TEMP 98.2; O2SAT 93
[2016-07-11] MEDS: PRAVASTATIN SOD 40 MG TAB PO SCH (21:35)
[2016-07-11] MEDS: TERAZOSIN HCL 5 MG CAP PO SCH (21:35)
[2016-07-11] MEDS: TERAZOSIN HCL 1 MG CAP PO SCH (21:35)
[2016-07-11] MEDS: VANCOMYCIN INJ 1,600 MG in SODIUM CHLORID 0.9% 500 ML INJ 500 ML IV SCH (23:14)
[2016-07-12] VITALS: BP 161/91; PULSE 63; RESP 18; TEMP 97.2; O2SAT 93
[2016-07-12 04:00] VITALS: BP 133/80; PULSE 63; RESP 18; TEMP 97.9; O2SAT 93
[2016-07-12 07:45] LABS: INTERNATIONAL NORMALIZED RATIO 1.7 RATIO; PROTHROMBIN TIME - PATIENT 19.1 SEC (9.8-11.6)
[2016-07-12 08:00] VITALS: BP 160/89; PULSE 64; RESP 16; TEMP 97.9; O2SAT 92
[2016-07-12] MEDS: CARBOXYMETHYLCELL SOD 0.5% OPTH SOLN 15 ML BTL EACH EYE SCH (09:00)
--- NOTE | 2016-07-12 09:35 | HHI.PR ---
Subjective Remarks no complains no diarrhea- soft stools, no back pain or discomfort states can do dressing change for him Objective Vitals Vital Signs Date Time Temp Pulse Resp B/P Pulse Ox O2 Delivery O2 Flow Rate FiO2 07/12/16 08:00 97.9 64 16 160/89 92 07/12/16 04:00 97.9 63 18 133/80 93 07/12/16 00:00 97.2 63 18 161/91 93 07/11/16 20:00 94 Room Air 07/11/16 20:00 98.2 62 16 157/91 93 07/11/16 16:02 98.1 65 17 168/92 94 07/11/16 12:02 97.5 51 17 148/80 93 I/O 07/11/16 07/11/16 07/11/16 07/12/16 07/12/16 07/12/16 07:00 15:00 23:00 07:00 15:00 23:00 Intake Total 360 ml 600 ml 240 ml 120 ml Output Total 275 ml 300 ml Balance 85 ml 600 ml -60 ml 120 ml Intake Oral 360 ml 600 ml 240 ml 120 ml Output Urine Total 275 ml 300 ml # Voids 6 1 # Bowel Movements 0 2 0 1 Result Diagram: 07/10/16 1443 07/11/16 0630 Imaging Last Impressions Soft Tissue Ultrasound 07/08/16 0000 Signed Impressions: Service Date/Time: Friday, July 08, 2016 18:52 - CONCLUSION: Ill-defined focal heterogeneous area with smaller apparent cystic structure. This is nonspecific but could represent a hematoma or seroma. Valentin Quinones MD Objective Remarks awake and alert, oriented x 3 anicteric Upper back- open wound S/P I and D - no pus, dry, no odor lungs clear regular rhythm abdomen soft, nontender extremities no edema Procedures 07/09- I and D right upper scapular abscess A/P Assessment and Plan 75-year-old male with past medical history of hypertension, atrial fibrillation on Coumadin, coronary artery disease status post previous [place], bypass surgery, aortic valve replacement, pacemaker placement, AAA and BPH who presents to [facility] ED with complaints of cellulitis on his right shoulder/upper back overlying the scapula. Upper back Abscess with Cellulitis failed outpatient treatment S/P I and D 07/09 - Staph species initally- final c and s no growth - Follow up on wound and blood culture results- negative so far - pain management - wound care daily- CLEANSE WOUND TO R UPPER BACK WITH NORMAL SALINE AND APPLY MAXORB AG PLEASE COVER WITH DRY COVER DRESSING AND CHANGE EVERY OTHER DAY- DC on po clindamycin 300 mg po qid x 5 days- d/w ID patient received 2 days of vanco IV - //CRI - creatinine 1.49, unsure of patients baseline- likely baseline with history of BPH - non oliguric - avoid nephrotoxic agents - recheck labs //CAD/HTN/AAA/previous CABG/AVR/pacemaker implantation - Resume home antihypertensive medications - ASA daily - monitor BP and adjust treatment as indicated - Heart healthy diet //Afib on Coumadin- initial INR 3.3 - rate controlled - INR down to 2.4 . restart coumadin home dose 5 mg daily- advised to ff up with [facility]- INR in am //CHF - resume home Lasix - monitor electrolytes - monitor for signs of fluid overload //Hypernatremia resolved //Thrombocytopenia - mild, platelets 132 - possibly secondary to infection - monitor //Depression/Anxiety/Bipolar - resume home meds //BPH - scheduled for urologic surgery on Wednesday in [place] - continue with home meds //GERD - resume home PPI //Dermatological rash in bilateral lower extremity- chronic - Resume topical hydrocortisone -OP ff up with Advocacy Director [facility] //Dyslipidemia - Resume home statin //DVT prophylaxis - Patient on Coumadin- DC home today FF uop with [facility] OP ff up with a GS or engineer station mainline for wound check Isabelle Braswell MD July 12, 2016 09:35
[2016-07-12] MEDS ORDERED: CLIN150 PO (09:46)
[2016-07-12] MEDS ORDERED: LACT PO (09:59)
--- NOTE | 2016-07-12 09:59 | HHI.DS ---
Discharge Summary Admission Date July 08, 2016 at 17:26 Discharge Date: July 12, 2016 Admitting Diagnosis cellulitis, outpatient treatment failure, hypernatremic dehydration (1) Upper back Abscess S/P In D Diagnosis: Principal (2) Chronic kidney insufficiency ICD Code: N18.9 Diagnosis: Secondary (3) HYpertension/CAD Diagnosis: Secondary Procedures 07/09- I and D right upper scapular abscess Brief History - From Admission This is a 35-year-old male with past medical history of hypertension, atrial fibrillation on Coumadin, coronary artery disease status post previous [place] , bypass surgery, aortic valve replacement, pacemaker placement, AAA and BPH who presents to [facility] ED with complaints of cellulitis on his right shoulder/upper back overlying the scapula. Patient reports he developed a boil on the back of the shoulder proximally a week ago it was about the size of a quarter. A few days later, it popped began to drain pus. On 07/03/16, patient was started on Keflex by his [place] physician. Despite taking the antibiotics, the area continues to enlarge with persistent drainage. Patient was seen back in his [place] physicians office today and was instructed to come to the emergency room. Patient reports associated discomfort but states it's not too bothersome. He denies any recent illness. He denies any trauma to the area or known bite. Denies any associated fever, chills, nausea or vomiting. Patient states he has an upcoming "green light" surgery on Wednesday at [facility] in [place] for his BPH. Patient denies any dizziness, headache, shortness of breath, chest pain or abdominal pain. CBC/BMP: 07/10/16 1443 07/11/16 0630 Significant Findings Laboratory Tests Test 07/10/16 07/10/16 07/11/16 07/12/16 08:30 14:43 06:30 07:12 Prothrombin Time 27.3 SEC 22.6 SEC 19.1 SEC (9.8-11.6) (9.8-11.6) (9.8-11.6) Platelet Count 138 TH/MM3 (150-450) Monocytes (%) (Auto) 9.6 % (0.0-8.0) Eosinophils (%) (Auto) 8.3 % (0.0-4.0) Chloride Level 109 MEQ/L (98-107) Creatinine 1.66 MG/DL 1.47 MG/DL (0.60-1.30) (0.60-1.30) Estimat Glomerular Filtration 40 ML/MIN (>89) 47 ML/MIN (>89) Rate Imaging Last Impressions Soft Tissue Ultrasound 07/08/16 0000 Signed Impressions: Service Date/Time: Friday, July 08, 2016 18:52 - CONCLUSION: Ill-defined focal heterogeneous area with smaller apparent cystic structure. This is nonspecific but could represent a hematoma or seroma. Valentin Quinones MD PE at Discharge awake and alert, oriented x 3 anicteric Upper back- open wound S/P I and D - no pus, dry, no odor lungs clear regular rhythm abdomen soft, nontender extremities no edema Pt update on day of discharge afebrile, no pain complains uopper back wound- dry, no drainage, no foul odor Hospital Course 75-year-old male with past medical history of hypertension, atrial fibrillation on Coumadin, coronary artery disease status post previous [place], bypass surgery, aortic valve replacement, pacemaker placement, AAA and BPH who presents to [facility] ED with complaints of cellulitis on his right shoulder/upper back overlying the scapula. Upper back Abscess with Cellulitis failed outpatient treatment S/P I and D 07/09 - Staph species initally- final c and s no growth - Follow up on wound and blood culture results- negative so far - pain management - wound care daily- CLEANSE WOUND TO R UPPER BACK WITH NORMAL SALINE AND APPLY MAXORB AG PLEASE COVER WITH DRY COVER DRESSING AND CHANGE EVERY OTHER DAY- DC on po clindamycin 300 mg po qid x 5 days- d/w ID patient received 2 days of vanco IV - //CRI - creatinine 1.49, unsure of patients baseline- likely baseline with history of BPH - non oliguric - avoid nephrotoxic agents - recheck labs //CAD/HTN/AAA/previous CABG/AVR/pacemaker implantation - Resume home antihypertensive medications - ASA daily - monitor BP and adjust treatment as indicated - Heart healthy diet //Afib on Coumadin- initial INR 3.3 - rate controlled - INR down to 2.4 . restart coumadin home dose 5 mg daily- advised to [facility] up with [facility]- INR in am //CHF - resume home Lasix - monitor electrolytes - monitor for signs of fluid overload //Hypernatremia resolved //Thrombocytopenia - mild, platelets 132 - possibly secondary to infection - monitor //Depression/Anxiety/Bipolar - resume home meds //BPH - scheduled for urologic surgery on Wednesday in [place] - continue with home meds //GERD - resume home PPI //Dermatological rash in bilateral lower extremity- chronic - Resume topical hydrocortisone -OP ff up with Animal Killer [facility] //Dyslipidemia - Resume home statin //DVT prophylaxis - Patient on Coumadin- DC home today FF uop with [facility] OP ff up with a GS or sample collector for wound check Isabelle Braswell MD July 12, 2016 09:35 Pt Condition on Discharge: Good Discharge Disposition: Discharge Home Discharge Time: <= 30 minutes Discharge Instructions DIET: Follow Instructions for: Heart Healthy Diet, Coumadin (Warfarin) Diet Speech Therapy-Diet Recommends: Regular Activities you can perform: Weight Bearing as Abigail Follow up Referrals: PCP Follow-[facility] - [facility] New Orders: PT/INR - Next Day New Medications: Clindamycin (Cleocin) 150 Mg Cap 300 MG PO Q6HR Infection Days 6 Ref 0 CAP Continued Medications: Aspirin (Aspirin) 81 Mg Tabdr 81 MG PO DAILY TAB Betamethasone Valerate Topical (Betamethasone Valerate Topical) 0.1% Cream 1 APPLIC TOPICAL BID Dermatoses #45 Ref 0 GM Betamethasone Valerate Topical (Betamethasone Valerate Topical) 0.1% Lotn 1 APPLIC TOPICAL BID Apply to scalp irritation Dermatoses #60 Ref 0 ML Bisacodyl (Eq Gentle Laxative) 5 Mg Tab 5 MG PO HS PRN CONSTIPATION Carboxymethylcellulose Sodium (Eq Restore Plus Lubricant) 0.5 % Jacoby 1 DROP EACH EYE QID Diazepam (Diazepam) 5 Mg Tab 5 MG PO TID PRN ANXIETY Ref 0 TAB Diclofenac Topical (Diclofenac Topical) 1% Gel 1 APPLIC TOPICAL Q6HR Apply sparingly to rt ankle joint-apply with gloves or applicator PRN PAIN/INFLAMMATION #100 Ref 0 GM Docusate Sodium (Docusate Sodium) 100 Mg Cap 100 MG PO BID Prevent Constipation #60 Ref 0 CAP Furosemide (Furosemide) 40 Mg Tab 40 MG PO DAILY PRN EDEMA #30 Ref 0 TAB Hydrocortisone Topical (Hydrocortisone Topical) 2.5% Cream 1 APPLIC TOPICAL BID PRN INFLAMMATION Ref 0 GM Lisinopril (Lisinopril) 20 Mg Tab 20 MG PO DAILY #30 Ref 0 TAB Loratadine (Claritin) 10 Mg Tab 10 MG PO DAILY Allergy Management Ref 0 TAB Metoprolol Succinate ER 24 HR (Metoprolol Succinate ER 24 HR) 25 Mg Tab 25 MG PO DAILY #30 Ref 0 TAB Multiple Vitamins W/ Minerals (Preservision Areds 2) 1 Cap 1 CAP PO BID Nutritional Supplement Ref 0 CAP Omeprazole (Omeprazole) 20 Mg Tab 20 MG PO DAILY #30 Ref 0 TAB Pravastatin (Pravastatin) 40 Mg Tab 40 MG PO HS Cholesterol Management #30 Ref 0 TAB Quetiapine ER (Quetiapine ER) 50 Mg Tab 50 MG PO HS #30 Ref 0 TAB Sertraline (Sertraline) 100 Mg Tab 150 MG PO DAILY #30 Ref 0 TAB Terazosin (Terazosin) 2 Mg Cap 6 MG PO HS #30 Ref 0 CAP Warfarin (Warfarin) 5 Mg Tab 5 MG PO SUMOTUTHFRSA Take 1 tablet (5mg) daily on Wednesday,Wednesday,Wednesday, ,Wednesday and Wednesday Blood Clot Prevention #30 Ref 0 TAB Warfarin (Warfarin) 5 Mg Tab 2.5 MG PO WEDNESDAY Take 1/2 tablet (2.5mg) daily on Wednesdays Blood Clot Prevention #30 Ref 0 TAB Isabelle Braswell MD July 12, 2016 09:59
[2016-07-12] MEDS ORDERED: CLINDAMYCIN 150 MG CAP PO SCH (10:00)
[2016-07-12] MEDS: SERTRALINE HCL 50 MG TAB PO SCH (10:28)
[2016-07-12] MEDS: ASPIRIN EC 81 MG TABEC PO SCH (10:28)
[2016-07-12] MEDS: LISINOPRIL 20 MG TAB PO SCH (10:29)
[2016-07-12] MEDS: DOCUSATE SODIUM 100 MG CAP PO SCH (10:29)
[2016-07-12] MEDS: PANTOPRAZOLE SOD 20 MG DELAYED RELEASE TAB PO SCH (10:29)
[2016-07-12] MEDS: MULTIVITAMIN-OPHTHALMIC 1 TAB PO SCH (10:29)
[2016-07-12] MEDS: LORATADINE 10 MG TAB PO SCH (10:29)
[2016-07-12] MEDS: METOPROLOL SUCCINATE 25 MG EXTENDED RELEASE TAB PO SCH (10:29)
[2016-07-12] MEDS: QUEtiapine FUMARATE 25 MG TAB PO SCH (10:29)
[2016-07-12] MEDS ORDERED: LACTOBACILLUS ACIDOPHILUS TAB PO SCH (13:00)
[2016-07-13] MEDS ORDERED: PHARMACY ORDERED LAB ONE (22:45)
== END 2016-07-12 12:10 | disposition home or self-care (01) | DRG 580 ==
LOC: NEPD 14:07 → NEDA 17:26 → N04B 20:38
PROVIDERS: ADMIT Internal Medicine; ATTEND Internal Medicine
PROC: 0J970ZZ Drainage of Back Subcutaneous Tissue and Fascia, Open Approach (ICD-10-PCS; principal; 2016-07-10)
DX: L02.212 Cutaneous abscess of back [any part, except buttock and flank] (principal); E87.0 Hyperosmolality and hypernatremia; D69.6 Thrombocytopenia, unspecified; I48.91 Unspecified atrial fibrillation; I25.810 Atherosclerosis of coronary artery bypass graft(s) without angina pectoris; I13.0 Hypertensive heart and chronic kidney disease with heart failure and stage 1 through stage 4 chronic kidney disease, or unspecified chronic kidney disease; I50.9 Heart failure, unspecified; E86.0 Dehydration; E78.5 Hyperlipidemia, unspecified; M10.9 Gout, unspecified; F31.9 Bipolar disorder, unspecified; F41.9 Anxiety disorder, unspecified; G47.30 Sleep apnea, unspecified; I25.2 Old myocardial infarction; L72.3 Sebaceous cyst; L03.312 Cellulitis of back [any part except buttock and flank]; N18.9 Chronic kidney disease, unspecified; Z95.1 Presence of aortocoronary bypass graft; Z79.01 Long term (current) use of anticoagulants; K21.9 Gastro-esophageal reflux disease without esophagitis; N40.0 Benign prostatic hyperplasia without lower urinary tract symptoms; Z87.891 Personal history of nicotine dependence; Z95.0 Presence of cardiac pacemaker; Z95.2 Presence of prosthetic heart valve; Z95.5 Presence of coronary angioplasty implant and graft; H91.90 Unspecified hearing loss, unspecified ear
CPT/HCPCS: 10061; 76999; 80048; 80053; 82565; 85025; 85610; 86403; 87040; 87070; 87205; 99284; J2543; J3370; J7030; J7040; J7050

== ENCOUNTER 2016-07-24 01:47 | Observation (INO) | payer MEDICARE, OTHER ==
[~2016-07-24] VITALS: Ht 182.9 cm; Wt 106.7 kg
[2016-07-24] VITALS (11 sets, daily range): BP systolic 107–150; BP diastolic 65–91; PULSE 61–75; RESP 16–20; TEMP 95.7–98.6; O2SAT 92–98
[~2016-07-24 01:47] MED LIST changes: +BETA0.1L TOPICAL; +CLIN150 PO; +DICL1GEL7 TOPICAL; +HYDR2.5C TOPICAL; +LACT PO; -PERC5TAB12 PO; +PRESCAP5 PO; -ZOFR4TAB3 SL
--- NOTE | 2016-07-24 02:21 | PD ---
HPI Chief Complaint: Facial Pain or Swelling Time Seen by Provider: 02:16 Travel History International Travel<30 days: No Contact w/Intl Traveler<30days: No Traveled to known affect area: No History of Present Illness HPI 75-year-old male presents to the emergency department for right facial pain and swelling. Patient is noted symptoms for the past 2-3 days. Patient states symptoms worsening this evening while still on oral antibiotic. Patient recently hospitalized for I&D and excision of an abscess sebaceous cyst to his back. Patient was placed on oral antibiotic which he completed 2-3 days ago and restarted the oral antibiotic he had been prescribed prior to his hospitalization for the back abscess. Patient's had no fever chills while on antibiotic. Patient states that he's had no difficulty with swallowing. Patient denies any ear pain. Patient's had no sore throat. Patient denies any cough or shortness of breath. Patient states he did not notice swelling to his face while he was in the hospital. Patient was discharged prescription for clindamycin. Patient does take blood thinning agent Coumadin. Patient is been taking his medications as previously prescribed and there is been no change into his medications except for recent addition of oral antibiotic. [facility] Patient denies other concerns or complaints. Patient rates facial pain 9/10 in intensity. Patient also complains of worsening generalized weakness. PFSH Past Medical History Narrative Medical CAD atrial fibrillation Coumadin therapy [place] CABG aortic valve replacement cardiac catheterization AICD pacemaker AAA skin cancer dyslipidemia CHF hypertension diminished hearing sleep apnea Hx Anticoagulant Therapy: Yes (COUMADIN) AAA: Yes Arthritis: Yes Atrial Fibrillation: Yes Bipolar Disorder: Yes Anxiety: Yes Depression: Yes Heart Rhythm Problems: Yes Cancer: Yes (SKIN) Cardiac Catheterization: Yes Cardiovascular Problems: Yes (afib/ pacemaker/defib/aortic valve replaced/ AAA) High Cholesterol: Yes Chemotherapy: No Chest Pain: Yes Congestive Heart Failure: Yes Coronary Artery Disease: Yes Diabetes: No Diminished Hearing: Yes (BILAT HEARING AIDS) Diverticulitis: Yes Endocrine: No Gastrointestinal Disorders: Yes GERD: Yes Gout: Yes Genitourinary: Yes (ENLARGED PROSTATE) Hypertension: Yes Immune Disorder: No Implanted Vascular Access Dvce: No Musculoskeletal: Yes Neurologic: Yes Psychiatric: Yes Reproductive: No Respiratory: Yes Immunizations Current: Yes Myocardial Infarction: Yes (x1) Pneumonia: Yes Radiation Therapy: No Sleep Apnea: Yes (CPAP) PNEUMOCCOCAL Vaccine (Year): 2008 Past Surgical History Abdominal Surgery: Yes (POLYPS AND PORTION OF BOWEL REMOVAL) AICD: Yes Appendectomy: Yes Cardiac Surgery: Yes (PACEMAKER/DEFIB) Coronary Artery Bypass Graft: Yes (DOUBLE BYPASS WITH AORTIC VALVE REPLACEMENT) Coronary Stent: Yes Genitourinary Surgery: Yes (POLYPS REMOVED) Neurologic Surgery: No Pacemaker: Yes (MAR 2013) Tonsillectomy: Yes Valve Replacement: Yes Other Surgery: Yes (LEFT GREAT TOE, cyst removed from back) Social History Alcohol Use: Yes (occas. mix drinks) Tobacco Use: No (QUIT 30 + YRS AGO SMOKED 1 PPD) Substance Use: No Allergies-Medications (Allergen,Severity, Reaction): Coded Allergies: Dilaudid (Verified Allergy, Severe, Nausea/Vomiting, 07/24/16) Kiwi (Verified Allergy, Severe, RASH, 07/24/16) Neosporin (Verified Allergy, Severe, Rash, 07/24/16) Tetanus Toxoid (Verified Allergy, Severe, HIVES, 07/24/16) Reported Meds & Prescriptions Reported Meds & Active Scripts Active Acidophilus/l-Sporogenes (Lactobacillus Acidophilus) 1 Tab Tab 1 Tab PO TID 5 Days Reported Warfarin 5 Mg Tab 2.5 Mg PO WEDNESDAY Take 1/2 tablet (2.5mg) daily on Wednesdays Preservision Areds 2 (Multiple Vitamins W/ Minerals) 1 Cap 1 Cap PO BID Hydrocortisone Topical 2.5% Cream 1 Applic TOPICAL BID PRN Diclofenac Topical 1% Gel 1 Applic TOPICAL Q6HR PRN Apply sparingly to rt ankle joint-apply with gloves or applicator Warfarin 5 Mg Tab 5 Mg PO SUMOTUTHFRSA Take 1 tablet (5mg) daily on Wednesday,Wednesday,Wednesday,,Wednesday and Wednesday Terazosin (Terazosin HCl) 2 Mg Cap 6 Mg PO HS Sertraline (Sertraline HCl) 100 Mg Tab 150 Mg PO DAILY Quetiapine ER (Quetiapine Fumarate) 50 Mg Tab 50 Mg PO HS Pravastatin 40 Mg Tab 40 Mg PO HS Omeprazole 20 Mg Tab 20 Mg PO DAILY Metoprolol Succinate ER 24 HR (Metoprolol Succinate) 25 Mg Tab 25 Mg PO DAILY Claritin (Loratadine) 10 Mg Tab 10 Mg PO DAILY Lisinopril 20 Mg Tab 20 Mg PO DAILY Furosemide 40 Mg Tab 40 Mg PO DAILY PRN Docusate Sodium 100 Mg Cap 100 Mg PO BID Diazepam 5 Mg Tab 5 Mg PO TID PRN Eq Restore Plus Lubricant (Carboxymethylcellulose Sodium) 0.5 % Jacoby 1 Drop EACH EYE QID Eq Gentle Laxative (Bisacodyl) 5 Mg Tab 5 Mg PO HS PRN Betamethasone Valerate Topical 0.1% Cream 1 Applic TOPICAL BID Aspirin 81 Mg Tabdr 81 Mg PO DAILY Review of Systems Except as stated in HPI: all other systems reviewed are Neg General / Constitutional: No: Fever, Chills HENT: Positive: Masses, No: Sore Throat, Congestion, Nosebleed, Gingival Bleeding Cardiovascular: No: Chest Pain or Discomfort Respiratory: No: Shortness of Breath, Hemoptysis Gastrointestinal: No: Nausea, Vomiting, Abdominal Pain, Hematemesis, Hematochezia Genitourinary: No: Hematuria, Flank Pain Musculoskeletal: No: Myalgias, Arthralgias Skin: Positive Lumps (right face), No Rash Neurologic: No: Weakness, Dizziness, Syncope, Focal Abnormalities, Coordination Problem Psychiatric: No: Anxiety Hematologic/Lymphatic: No: Easy Bruising Physical Exam Narrative GENERAL: Well-developed well-nourished obese male in no acute distress no respiratory distress SKIN: Warm and dry. HEAD: Normocephalic. EYES: No scleral icterus. No injection or drainage. ENT: Right facial soft tissue firm nonfluctuant swelling around non-fixed mass 5 cm x 5 cm tender to palpation and extends to but not underneath the mandible and spares the tragus no soft tissue induration or erythema or warmth; airway is patent; mucous membranes moist; no gingival edema. NECK: Supple, trachea midline. No JVD or lymphadenopathy. CARDIOVASCULAR: Regular rate and rhythm without murmurs, gallops, or rubs. RESPIRATORY: Breath sounds equal bilaterally. No accessory muscle use. GASTROINTESTINAL: Abdomen soft, non-tender, nondistended. MUSCULOSKELETAL: No cyanosis, or edema. BACK: Nontender without obvious deformity. No CVA tenderness. Data Data Last Documented VS Vital Signs Date Time Temp Pulse Resp B/P Pulse Ox O2 Delivery O2 Flow Rate FiO2 07/24/16 04:35 61 18 136/71 96 Room Air 07/24/16 01:52 97.8 Orders Basic Metabolic Panel (Bmp) (07/24/16 02:17) Complete Blood Count With Diff (07/24/16 02:17) Blood Culture (07/24/16 02:17) Ct Soft Tiss Neck W Iv Cont (07/24/16 02:17) Iv Access Insert/Monitor (07/24/16 02:17) Sodium Chloride 0.9% Flush (Ns Flush) (07/24/16 02:30) Iohexol 350 Inj (Omnipaque 350 Inj) (07/24/16 03:49) Acetamin-Hydrocod 325-5 Mg ([place] 5-325 (07/24/16 04:45) Ampicillin-Sulbactam Inj (Unasyn Inj) (07/24/16 04:45) Prothrombin Time / Inr (Pt) (07/24/16 04:53) Admit Order (Ed Use Only) (07/24/16 ) ^ Saline Lock (07/24/16 04:58) Resp Oxygen Slava C Titrat 1-4 L (07/24/16 ) Notify Dr: Other (07/24/16 04:58) Sodium Chloride 0.9% Flush (Ns Flush) (07/24/16 09:00) Sodium Chloride 0.9% Flush (Ns Flush) (07/24/16 05:00) Labs Laboratory Tests Test 07/24/16 02:40 White Blood Count 5.5 TH/MM3 Red Blood Count 5.15 MIL/MM3 Hemoglobin 14.8 GM/DL Hematocrit 44.4 % Mean Corpuscular Volume 86.1 FL Mean Corpuscular Hemoglobin 28.6 PG Mean Corpuscular Hemoglobin 33.3 % Concent Red Cell Distribution Width 13.1 % Platelet Count 142 TH/MM3 Mean Platelet Volume 7.8 FL Neutrophils (%) (Auto) 63.1 % Lymphocytes (%) (Auto) 19.7 % Monocytes (%) (Auto) 10.2 % Eosinophils (%) (Auto) 6.1 % Basophils (%) (Auto) 0.9 % Neutrophils # (Auto) 3.5 TH/MM3 Lymphocytes # (Auto) 1.1 TH/MM3 Monocytes # (Auto) 0.6 TH/MM3 Eosinophils # (Auto) 0.3 TH/MM3 Basophils # (Auto) 0.0 TH/MM3 CBC Comment DIFF FINAL Differential Comment Sodium Level 144 MEQ/L Potassium Level 4.2 MEQ/L Chloride Level 109 MEQ/L Carbon Dioxide Level 29.6 MEQ/L Anion Gap 5 MEQ/L Blood Urea Nitrogen 22 MG/DL Creatinine 1.40 MG/DL Estimat Glomerular Filtration 49 ML/MIN Rate Random Glucose 116 MG/DL Calcium Level 8.5 MG/DL MDM Medical Decision Making Medical Screen Exam Complete: Yes Emergency Medical Condition: Yes Medical Record Reviewed: Yes Interpretation(s) Last Impressions Neck CT 07/24/16 0217 Signed Impressions: Service Date/Time: Sunday, July 24, 2016 03:38 - CONCLUSION: 1. Enlarged right parotid gland with increased attenuation relative to the left parotid. There is also stranding in the fat of the upper right neck. Findings are most characteristic of a right-sided parotitis and mild cellulitis in the right neck. Slightly greater than 1 cm nodule in the right parotid gland is nonspecific but could represent an enlarged parotid lymph node. Close followup recommended. Uriel Doyle MD CBC & BMP Diagram 07/24/16 02:40 Differential Diagnosis Sialadenitis, abscess, cellulitis, mass Narrative Course IV access obtained specimens collected and sent for resulting CBC and metabolic panel found to be in normal range; patient sent for CT imaging CT imaging resulted and I consistent with prostatitis no visualized stone focal area of cellulitis per reading radiologist; patient administered IV antibiotics after blood cultures obtained At this point in time patient will be admitted for IV antibiotics after failed outpatient antibiotic therapy as patient just finished a course of clindamycin and another oral antibiotic was restarted that had [facility] with worsening symptoms according to the patient along with increasing generalized weakness. Patient's case discussed with on-call [facility] MD Dr Nguyen -- will admit patient for observation Physician Communication Physician Communication discussed with Dr Nguyen Diagnosis Primary Impression: Parotitis Admitting Information Admitting Physician Requests: Observation Katrin Ortiz MD July 24, 2016 02:21
[2016-07-24] MEDS ORDERED: SODIUM CHLORIDE 0.9% FLUSH 10 ML FLUSH IVF PRN ×2 (02:30→05:00)
[2016-07-24 02:53] LABS: AUTOMATED NEUTROPHIL # 3.5 TH/MM3 (1.8-7.7); BASOPHIL % 0.9 % (0.0-2.0); EOSINOPHIL # 0.3 TH/MM3 (0-0.4); EOSINOPHIL % 6.1 % (0.0-4.0); HEMATOCRIT 44.4 % (39.0-51.0); HEMO FLAGS DIFF FINAL; LYMPH % 19.7 % (9.0-44.0); LYMPHOCYTE # 1.1 TH/MM3 (1.0-4.8); MEAN CELL VOLUME 86.1 FL (80.0-100.0); MEAN CORPUSCULAR HEMOGLOBIN 28.6 PG (27.0-34.0); MEAN CORPUSCULAR HGB CONC 33.3 % (32.0-36.0); MONO % 10.2 % (0.0-8.0); NEUT % 63.1 % (16.0-70.0); PLATELET COUNT 142 TH/MM3 (150-450); RED BLOOD COUNT 5.15 MIL/MM3 (4.50-5.90); RED CELL DISTRIBUTION WIDTH 13.1 % (11.6-17.2); WHITE BLOOD COUNT 5.5 TH/MM3 (4.0-11.0)
[2016-07-24 03:20] LABS: POTASSIUM 4.2 MEQ/L (3.5-5.1)
[2016-07-24 03:23] LABS: BICARBONATE 29.6 MEQ/L (21.0-32.0)
[2016-07-24] MEDS ORDERED: IOHEXOL 350 MG/ML 10 ML VIAL (for RAD DIAG) IV ONE (03:49)
--- NOTE | 2016-07-24 04:19 | RADHPO ---
EXAM DATE/TIME: 07/24/2016 03:38 [facility] COMPARISON: No previous studies available for comparison. INDICATIONS : Right sided face and neck swelling for four days. IV CONTRAST: 94 cc Omnipaque 350 (iohexol) IV RADIATION DOSE: 16.02 CTDIvol (mGy) MEDICAL HISTORY : Myocardial infarction. Hypertension. SURGICAL HISTORY : Pacemaker. Coronary artery stent. ENCOUNTER: Initial ACUITY: 4 - 6 days PAIN SCALE: 6/10 LOCATION: Right neck TECHNIQUE: Volumetric scanning of the neck was performed. Using automated exposure control and adjustment of th e mA and/or kV according to patient size, radiation dose was kept as low as reasonably achievable to obtain optimal diagnostic quality images. FINDINGS: The right parotid gland is enlarged relative to left parotid gland with diffuse stranding throughout. There is a slightly lobulated 1 cm nodule along the deep side of the parotid, possibly an enlarged l ymph node. This should be followed. Additional smaller lymph nodes noted in the right parotid. Submandibular glands are symmetric. There is some stranding of fat extending into the subcutaneous ti ssues of the right submandibular region characteristic of a mild cellulitis. No discrete or drainable abscess. No airway obstructing lesions or foreign bodies. Mucosal thickening present in the paranasal maxillar y sinuses. No acute bony abnormalities. Lung apices are clear. No pathologically enlarged lymph nodes within the remainder of the neck. CONCLUSION: 1. Enlarged right parotid gland with increased attenuation relative to the left parotid. There is als o stranding in the fat of the upper right neck. Findings are most characteristic of a right-sided par otitis and mild cellulitis in the right neck. Slightly greater than 1 cm nodule in the right parotid gland is nonspecific but could represent an enlarged parotid lymph node. Close followup recommended. Uriel Doyle MD on July 24, 2016 at 4:13 Board Certified Radiologist. This report was verified electronically.
[2016-07-24] MEDS ORDERED: AMPICILLIN-SULBACTAM INJ 3 GM in SODIUM CHLORIDE 0.9% INJ 100 ML IV ONE (04:45)
[2016-07-24] MEDS ORDERED: ACETAMINOPHEN/HYDROcodone 325 MG/5 MG TAB PO ONE (04:45)
[2016-07-24] MEDS ORDERED: SODIUM CHLORIDE 0.9% FLUSH 10 ML FLUSH IV FLUSH PRN (05:00)
[2016-07-24] MEDS ORDERED: NALOXONE HCL 0.4 MG/ML AMP IV PRN (05:00)
[2016-07-24 06:21] LABS: INTERNATIONAL NORMALIZED RATIO 2.2 RATIO
[2016-07-24] MEDS ORDERED: SODIUM CHLORIDE 0.9% FLUSH 10 ML FLUSH IV FLUSH SCH (09:00)
[2016-07-24] MEDS: SODIUM CHLORIDE 0.9% FLUSH 10 ML FLUSH IV FLUSH SCH ×2 (09:00→20:22)
[2016-07-24] MEDS ORDERED: DIAZEPAM 2 MG TAB PO PRN (09:45)
[2016-07-24] MEDS ORDERED: DIAZEPAM 5 MG TAB PO PRN (10:00)
[2016-07-24] MEDS ORDERED: FUROSEMIDE 40 MG TAB PO PRN (10:00)
[2016-07-24] MEDS ORDERED: PILL SPLITTER OTHER PRN (10:15)
[2016-07-24] MEDS ORDERED: BISACODYL EC 5 MG TABEC PO PRN (10:15)
--- NOTE | 2016-07-24 10:53 | HHI.HP ---
[facility] Service [facility] Admission Diagnosis R parotitis Diagnoses: (1) Parotitis Diagnosis: Principal (2) Upper back Abscess S/P In D Diagnosis: Secondary (3) Insomnia Diagnosis: Secondary (4) CAD (coronary artery disease) Diagnosis: Secondary (5) Ventral hernia Diagnosis: Secondary (6) Pacemaker Diagnosis: Secondary (7) Old [place] (myocardial infarction) Diagnosis: Secondary (8) BPH (benign prostatic hyperplasia) Diagnosis: Secondary (9) Hx of CABG Diagnosis: Secondary (10) History of artificial heart valve Diagnosis: Secondary (11) Hx of aortic aneurysm repair Diagnosis: Secondary Travel History International Travel<30 Days: No Contact w/Intl Traveler <30 Da: No Traveled to Known Affected Are: No History of Present Illness Mr. Dangelo is a 75 year old male. He is admitted here with a right mandibular swelling with tenderness. This has progressed over 4 days became acutely tender yesterday prior to his arrival to the hospital. Scan showed a right parotiditis without evidence of abscess or parotid stone. She has not had previous episodes like this before. Viral syndrome is not reported. She was hospitalized recently, for about 6 days, for a right back abscess and is doing daily dressing changes for this. Etiology for his infection may be related to the previous infection. His past medical history includes coronary artery disease, old [place], CABG 2, aortic aneurysm repair surgery, artificial heart valve , recent right shoulder abscess, benign prostatic hypertrophy, abdominal ventral wall hernia, and a pacemaker defibrillator. He has no complaints of chest pain today. Since last night he has had only mild improvement in his right parotid tenderness and swelling. No other complaints today. Review of Systems Constitutional: DENIES: Fatigue, Fever, Weight loss Eyes: DENIES: Blurred vision, Diplopia Ears, nose, mouth, throat: COMPLAINS OF: Oral lesions Respiratory: DENIES: Cough, Wheezing, Sputum production Cardiovascular: DENIES: Chest pain, Palpitations, Syncope Gastrointestinal: DENIES: Abdominal pain, Black stools, Bloody stools Genitourinary: DENIES: Dysuria, Testicular Pain, Testicular Swelling Musculoskeletal: DENIES: Joint pain, Muscle aches, Stiffness Integumentary: DENIES: Abnormal pigmentation Hematologic/lymphatic: COMPLAINS OF: Lymphadenopathy, DENIES: Bruising Immunologic/allergic: DENIES: Eczema Neurologic: DENIES: Abnormal gait, Headache Psychiatric: DENIES: Anxiety, Confusion, Mood changes Past Family Social History Past Medical History Coronary artery disease Old [place] Cardiac arrhythmia Benign prostatic hypertrophy Abdominal ventral wall hernia Recent right shoulder abscess Cardiac valve disease Aortic aneurysm Insomnia Past Surgical History CABG 2 Pacemaker defibrillator placement Aortic aneurysm repair Artificial heart valve Allergies: Coded Allergies: Dilaudid (Verified Allergy, Severe, Nausea/Vomiting, 07/24/16) Kiwi (Verified Allergy, Severe, RASH, 07/24/16) Neosporin (Verified Allergy, Severe, Rash, 07/24/16) Tetanus Toxoid (Verified Allergy, Severe, HIVES, 07/24/16) Family History Coronary artery disease in his older brother Social History No smoking, no alcohol, no drug abuse. Physical Exam Vital Signs Vital Signs Date Time Temp Pulse Resp B/P Pulse Ox O2 Delivery O2 Flow Rate FiO2 07/24/16 10:29 96.5 64 18 142/84 92 07/24/16 07:15 65 16 107/65 95 Room Air 07/24/16 07:15 64 16 07/24/16 06:17 96 21 07/24/16 06:07 17 07/24/16 04:35 61 18 136/71 96 Room Air 07/24/16 03:25 63 18 132/67 96 Room Air 07/24/16 01:52 97.8 75 16 147/91 93 Physical Exam GENERAL: NAD, A&Ox3 SKIN: Warm and dry. HEAD: Right parotid gland is enlarged and tender, no erythema of the skin EYES: No scleral icterus. No injection or drainage. NECK: Supple, trachea midline. No JVD or lymphadenopathy. CARDIOVASCULAR: Regular rate and rhythm without murmurs, gallops, or rubs. RESPIRATORY: Breath sounds equal bilaterally. No accessory muscle use. GASTROINTESTINAL: Abdomen soft, non-tender, nondistended. Defect of the anterior abdominal wall. MUSCULOSKELETAL: No cyanosis, or edema. Laboratory Laboratory Tests Test 07/24/16 07/24/16 02:40 06:02 White Blood Count 5.5 Red Blood Count 5.15 Hemoglobin 14.8 Hematocrit 44.4 Mean Corpuscular Volume 86.1 Mean Corpuscular Hemoglobin 28.6 Mean Corpuscular Hemoglobin 33.3 Concent Red Cell Distribution Width 13.1 Platelet Count 142 Mean Platelet Volume 7.8 Neutrophils (%) (Auto) 63.1 Lymphocytes (%) (Auto) 19.7 Monocytes (%) (Auto) 10.2 Eosinophils (%) (Auto) 6.1 Basophils (%) (Auto) 0.9 Neutrophils # (Auto) 3.5 Lymphocytes # (Auto) 1.1 Monocytes # (Auto) 0.6 Eosinophils # (Auto) 0.3 Basophils # (Auto) 0.0 CBC Comment DIFF FINAL Differential Comment Sodium Level 144 Potassium Level 4.2 Chloride Level 109 Carbon Dioxide Level 29.6 Anion Gap 5 Blood Urea Nitrogen 22 Creatinine 1.40 Estimat Glomerular Filtration 49 Rate Random Glucose 116 Calcium Level 8.5 Prothrombin Time 25.0 Prothromb Time International 2.2 Ratio Date/Time Procedure Status Source Growth 07/24/16 02:40 Aerobic Blood Culture Received Blood Peripheral Pending 07/24/16 02:40 Anaerobic Blood Culture Received Blood Peripheral Pending Result Diagram: 07/24/16 0240 07/24/16 0240 Assessment and Plan Problem List: (1) BPH (benign prostatic hyperplasia) ICD Code: N40.0 Status: Acute (2) Hx of aortic aneurysm repair ICD Code: Z98.890 Status: Acute (3) History of artificial heart valve ICD Code: Z95.2 Status: Acute (4) Hx of CABG ICD Code: Z95.1 Status: Acute (5) Old [place] (myocardial infarction) ICD Code: I25.2 Status: Acute (6) Pacemaker ICD Code: Z95.0 Status: Acute (7) CAD (coronary artery disease) ICD Code: I25.10 Status: Acute (8) Ventral hernia ICD Code: K43.9 Status: Acute (9) Insomnia ICD Code: G47.00 Status: Acute (10) Parotitis ICD Code: K11.20 Status: Acute (11) Upper back Abscess S/P In D Status: Acute Assessment and Plan Infectious parotiditis, right Continue Zosyn Add NSAID When necessary pain treatments Monitor for improvement Insomnia Resume home dose of Valium daily at bedtime Benign prostatic hypertrophy Resume home treatments and monitor clinically Coronary artery disease Old myocardial infarction CABG 2 Artificial heart valve Definitive liver pacemaker Aortic aneurysm with history of repair Continue baseline treatments and monitor clinically Continue Coumadin Follow INR No chest pain Healing right shoulder abscess Continue daily dressing changes Antibiotic treatment is completed Ventral abdominal wall hernia Follow up as an outpatient DVT prophylaxis Coumadin Cecil Otto MD July 24, 2016 10:53
[2016-07-24] MEDS ORDERED: DICLOFENAC 1% TOPICAL PRN (12:00)
[2016-07-24] MEDS: CARBOXYMETHYLCELL SOD 0.5% OPTH SOLN 15 ML BTL EACH EYE SCH ×3 (13:45→20:22)
[2016-07-24] MEDS: NAPROXEN 250 MG TAB PO SCH ×2 (13:46→22:07)
[2016-07-24] MEDS: LACTOBACILLUS ACIDOPHILUS TAB PO SCH ×2 (13:46→18:07)
[2016-07-24] MEDS: WARFARIN SOD 5 MG TAB PO SCH (18:07)
[2016-07-24] MEDS: TERAZOSIN HCL 1 MG CAP PO SCH (20:21)
[2016-07-24] MEDS: DOCUSATE SODIUM 100 MG CAP PO SCH (20:21)
[2016-07-24] MEDS: QUEtiapine FUMARATE 25 MG TAB PO SCH (20:21)
[2016-07-24] MEDS: PRAVASTATIN SOD 40 MG TAB PO SCH (20:21)
[2016-07-24] MEDS: MULTIVITAMIN-OPHTHALMIC 1 TAB PO SCH (20:21)
[2016-07-24] MEDS: TRIAMCINOLONE ACETONIDE 0.1% CREAM 15 GM TOPICAL SCH (20:22)
[2016-07-24] MEDS: HYDROCORTISONE 2.5% CREAM 30 GM TOPICAL PRN (20:22)
[2016-07-25] VITALS (7 sets, daily range): BP systolic 124–148; BP diastolic 85–97; PULSE 50–75; RESP 16–20; TEMP 95.9–97.9; O2SAT 92–95
[2016-07-25 08:39] LABS: AUTOMATED NEUTROPHIL # 1.9 TH/MM3 (1.8-7.7); BASOPHIL % 1.2 % (0.0-2.0); EOSINOPHIL # 0.3 TH/MM3 (0-0.4); EOSINOPHIL % 8.4 % (0.0-4.0); HEMATOCRIT 42.4 % (39.0-51.0); HEMO FLAGS DIFF FINAL; LYMPH % 29.9 % (9.0-44.0); LYMPHOCYTE # 1.1 TH/MM3 (1.0-4.8); MEAN CORPUSCULAR HEMOGLOBIN 29.2 PG (27.0-34.0); MONO % 10.2 % (0.0-8.0); NEUT % 50.3 % (16.0-70.0); PLATELET COUNT 128 TH/MM3 (150-450); RED BLOOD COUNT 4.94 MIL/MM3 (4.50-5.90); RED CELL DISTRIBUTION WIDTH 12.7 % (11.6-17.2); WHITE BLOOD COUNT 3.7 TH/MM3 (4.0-11.0)
[2016-07-25 08:45] LABS: CHLORIDE 107 MEQ/L (98-107); POTASSIUM 4.6 MEQ/L (3.5-5.1); SODIUM (NA) 142 MEQ/L (136-145)
[2016-07-25 08:46] LABS: INTERNATIONAL NORMALIZED RATIO 2.6 RATIO; PROTHROMBIN TIME - PATIENT 29.4 SEC (9.8-11.6)
[2016-07-25 08:48] LABS: ANION GAP 5 MEQ/L (5-15); BICARBONATE 30.2 MEQ/L (21.0-32.0); BLOOD UREA NITROGEN 20 MG/DL (7-18)
[2016-07-25 08:51] LABS: ALT (GPT) 21 U/L (12-78); AST (GOT) 71 U/L (15-37); GLOMERULAR FILTRATION RATE 54 ML/MIN (>89)
[2016-07-25 08:53] LABS: TOTAL BILIRUBIN ADULT 0.6 MG/DL (0.2-1.0)
[2016-07-25 08:54] LABS: ALKALINE PHOSPHATASE 86 U/L (45-117)
[2016-07-25] MEDS ORDERED: CIPROFLOXACIN 400 MG PREMIX 200 ML IV ONE (09:00)
[2016-07-25] MEDS ORDERED: CLIN1CAP6 PO (09:08)
[2016-07-25] MEDS ORDERED: LACTTAB8 PO (09:08)
[2016-07-25] MEDS ORDERED: AUGM875T PO (09:08)
[2016-07-25] MEDS: ASPIRIN EC 81 MG TABEC PO SCH (09:23)
[2016-07-25] MEDS: LISINOPRIL 20 MG TAB PO SCH (09:23)
[2016-07-25] MEDS: LORATADINE 10 MG TAB PO SCH (09:23)
[2016-07-25] MEDS: LACTOBACILLUS ACIDOPHILUS TAB PO SCH ×3 (09:23→17:39)
[2016-07-25] MEDS: METOPROLOL SUCCINATE 25 MG EXTENDED RELEASE TAB PO SCH (09:23)
[2016-07-25] MEDS: MULTIVITAMIN-OPHTHALMIC 1 TAB PO SCH ×2 (09:23→21:18)
[2016-07-25] MEDS: QUEtiapine FUMARATE 25 MG TAB PO SCH ×2 (09:24→21:30)
[2016-07-25] MEDS: SERTRALINE HCL 100 MG TAB PO SCH (09:24)
[2016-07-25] MEDS: PANTOPRAZOLE SOD 20 MG DELAYED RELEASE TAB PO SCH (09:25)
[2016-07-25] MEDS: NAPROXEN 250 MG TAB PO SCH ×2 (09:25→21:19)
[2016-07-25] MEDS: CARBOXYMETHYLCELL SOD 0.5% OPTH SOLN 15 ML BTL EACH EYE SCH ×4 (09:26→21:18)
[2016-07-25] MEDS: DOCUSATE SODIUM 100 MG CAP PO SCH ×2 (09:26→21:19)
[2016-07-25] MEDS: SODIUM CHLORIDE 0.9% FLUSH 10 ML FLUSH IV FLUSH SCH ×2 (09:26→21:20)
[2016-07-25] MEDS: TRIAMCINOLONE ACETONIDE 0.1% CREAM 15 GM TOPICAL SCH ×2 (09:28→21:18)
[2016-07-25] MEDS: HYDROCORTISONE 2.5% CREAM 30 GM TOPICAL PRN ×2 (09:28→21:18)
[2016-07-25] MEDS ORDERED: AMPICILLIN-SULBACTAM INJ 3 GM in SODIUM CHLORIDE 0.9% INJ 100 ML IV ONE (10:00)
[2016-07-25] MEDS ORDERED: CLINDAMYCIN INJ 900 MG in SODIUM CHLORIDE 0.9% INJ 100 ML IV ONE (10:00)
--- NOTE | 2016-07-25 11:28 | HHI.PR ---
Subjective Remarks Decrease in tenderness and slight decrease in swelling overnight. No drastic change. IV antibiotics should be continued. No new complaints from the patient. Objective Vital Signs Date Time Temp Pulse Resp B/P Pulse Ox O2 Delivery O2 Flow Rate FiO2 07/25/16 08:00 95.9 75 20 138/92 92 07/25/16 04:39 07/25/16 00:31 97.9 50 16 144/94 94 07/24/16 21:20 98.6 61 20 150/90 93 07/24/16 20:43 95 21 07/24/16 16:46 98 21 07/24/16 16:29 95.7 67 19 127/82 98 07/24/16 13:35 95.7 66 18 126/87 92 I/O 07/24/16 07/24/16 07/24/16 07/25/16 07/25/16 07/25/16 07:00 15:00 23:00 07:00 15:00 23:00 Intake Total 240 ml Balance 240 ml Intake Oral 240 ml # Voids 2 3 Result Diagram: 07/25/16 0755 07/25/16 0755 Imaging Last Impressions Neck CT 07/24/16 0217 Signed Impressions: Service Date/Time: Sunday, July 24, 2016 03:38 - CONCLUSION: 1. Enlarged right parotid gland with increased attenuation relative to the left parotid. There is also stranding in the fat of the upper right neck. Findings are most characteristic of a right-sided parotitis and mild cellulitis in the right neck. Slightly greater than 1 cm nodule in the right parotid gland is nonspecific but could represent an enlarged parotid lymph node. Close followup recommended. Uriel Doyle MD Objective Remarks GENERAL: NAD, A&Ox3 SKIN: Warm and dry. HEAD: Normocephalic. Indurated right parotid gland with decreased tenderness and decreased surrounding edema. EYES: No scleral icterus. No injection or drainage. NECK: Supple, trachea midline. No JVD or lymphadenopathy. CARDIOVASCULAR: Regular rate and rhythm without murmurs, gallops, or rubs. RESPIRATORY: Breath sounds equal bilaterally. No accessory muscle use. GASTROINTESTINAL: Abdomen soft, non-tender, nondistended. MUSCULOSKELETAL: No cyanosis, or edema. A/P Problem List: (1) Upper back Abscess S/P In D (2) Hx of CABG ICD Code: Z95.1 (3) History of artificial heart valve ICD Code: Z95.2 (4) Hx of aortic aneurysm repair ICD Code: Z98.890 (5) BPH (benign prostatic hyperplasia) ICD Code: N40.0 (6) Old [place] (myocardial infarction) ICD Code: I25.2 (7) Pacemaker ICD Code: Z95.0 (8) Parotitis ICD Code: K11.20 (9) Ventral hernia ICD Code: K43.9 Assessment and Plan Assessment and Plan Infectious parotiditis, right Improved overnight Unasyn Clindamycin (given recent right shoulder abscess) NSAID PRN pain treatments Monitor for improvement Insomnia Resume home dose of Valium daily at bedtime Benign prostatic hypertrophy Resume home treatments and monitor clinically Coronary artery disease Old myocardial infarction CABG 2 Artificial heart valve Definitive liver pacemaker Aortic aneurysm with history of repair Continue baseline treatments and monitor clinically Continue Coumadin Follow INR No chest pain Healing right shoulder abscess Continue daily dressing changes Antibiotic treatment is completed Ventral abdominal wall hernia Follow up as an outpatient DVT prophylaxis Coumadin Cecil Otto MD July 25, 2016 11:28
[2016-07-25] MEDS: WARFARIN SOD 5 MG TAB PO SCH (15:48)
[2016-07-25] MEDS: AMPICILLIN-SULBACTAM INJ 3 GM in SODIUM CHLORIDE 0.9% INJ 100 ML IV SCH ×2 (15:48→21:20)
[2016-07-25] MEDS: CLINDAMYCIN INJ 600 MG in SODIUM CHLORIDE 0.9% INJ 100 ML IV SCH (17:39)
[2016-07-25] MEDS ORDERED: IOHEXOL 350 MG/ML 10 ML VIAL (for RAD DIAG) IV ONE (19:07)
--- NOTE | 2016-07-25 19:32 | RADHPO ---
EXAM DATE/TIME: 07/25/2016 18:38 [facility] COMPARISON: CT SOFT TISSUE NECK W CONTRAST, July 24, 2016, 3:38. INDICATIONS : Right side parotid swelling; evaluate for abscess. IV CONTRAST: 71 cc Omnipaque 350 (iohexol) IV RADIATION DOSE: 15.18 CTDIvol (mGy) MEDICAL HISTORY : Hypertension. Cardiovascular disease Aneurysm, abdominal. SURGICAL HISTORY : Tonsillectomy. Pacemaker. CABG ENCOUNTER: Initial ACUITY: 1 week PAIN SCALE: 0/10 LOCATION: Right neck TECHNIQUE: Volumetric scanning of the neck was performed. Using automated exposure control and adjustment of th e mA and/or kV according to patient size, radiation dose was kept as low as reasonably achievable to obtain optimal diagnostic quality images. FINDINGS: There does appear to be asymmetry to the parotid glands with the right parotic gland appearing larger . There is fatty infiltration of the parotid glands bilaterally. There is a complex mass seen at th e posteromedial aspect of the right parotid gland measuring 1.5 cm. This appears slightly larger on the current examination. It previously measured 1.3 cm. It now measures 1.5 cm. The submandibular glands appear symmetric. There is fat density seen throughout the submandibular gl ands. Significant areas of adenopathy are not seen in the neck. There are scattered normal sized ly mph nodes seen throughout the neck. There is mucosal disease at the maxillary sinuses bilaterally. The orbits are unremarkable. The earnest pharynx, hypopharynx and glottic structures appear normal. The thyroid gland is normal. The patient is status post sternotomy. CONCLUSION: Asymmetry to the parotid glands with the right parotid gland appearing larger. There is a complex ma ss seen in the posteromedial aspect of the right parotid gland. This could be an enlarging inflamed lymph node versus other complex masses. This mass appears slightly more prominent on the current exa mination than it did on the examination from 07/24/2016. No other significant change is seen. Jeb Artis MD on July 25, 2016 at 19:15 Board Certified Radiologist. This report was verified electronically.
[2016-07-25] MEDS: PRAVASTATIN SOD 40 MG TAB PO SCH (21:18)
[2016-07-25] MEDS: TERAZOSIN HCL 1 MG CAP PO SCH (21:19)
[2016-07-26] VITALS (7 sets, daily range): BP systolic 118–161; BP diastolic 69–94; PULSE 53–72; RESP 16–20; TEMP 96.1–98.1; O2SAT 92–94
[2016-07-26] MEDS: CLINDAMYCIN INJ 600 MG in SODIUM CHLORIDE 0.9% INJ 100 ML IV SCH ×3 (02:24→17:03)
[2016-07-26] MEDS: AMPICILLIN-SULBACTAM INJ 3 GM in SODIUM CHLORIDE 0.9% INJ 100 ML IV SCH ×4 (03:27→22:12)
--- NOTE | 2016-07-26 08:55 | HHI.PR ---
Subjective Remarks Increased size last night. Repeat imaging confirms increased size, but no abscess. By this morning the increased size/swelling has resolved. The patient feels the overall size of it is decreased significantly now. Objective Vital Signs Date Time Temp Pulse Resp B/P Pulse Ox O2 Delivery O2 Flow Rate FiO2 07/26/16 05:14 07/26/16 00:50 97.9 72 16 134/88 94 07/25/16 21:42 97.4 69 20 124/89 93 07/25/16 19:30 95 21 07/25/16 16:02 93 21 07/25/16 16:00 96.5 64 20 148/97 94 07/25/16 12:00 96.7 65 20 130/85 93 I/O 07/25/16 07/25/16 07/25/16 07/26/16 07/26/16 07/26/16 07:00 15:00 23:00 07:00 15:00 23:00 Intake Total 240 ml 210 ml Balance 240 ml 210 ml Intake Oral 240 ml IV Total 210 ml # Voids 3 3 Result Diagram: 07/25/16 0755 07/25/16 0755 Objective Remarks GENERAL: NAD, A&Ox3 SKIN: Warm and dry. HEAD: Normocephalic. Indurated right parotid gland with decreased tenderness and decreased surrounding edema. EYES: No scleral icterus. No injection or drainage. NECK: Supple, trachea midline. No JVD or lymphadenopathy. CARDIOVASCULAR: Regular rate and rhythm without murmurs, gallops, or rubs. RESPIRATORY: Breath sounds equal bilaterally. No accessory muscle use. GASTROINTESTINAL: Abdomen soft, non-tender, nondistended. MUSCULOSKELETAL: No cyanosis, or edema. A/P Problem List: (1) Upper back Abscess S/P In D (2) Hx of CABG ICD Code: Z95.1 (3) History of artificial heart valve ICD Code: Z95.2 (4) Hx of aortic aneurysm repair ICD Code: Z98.890 (5) BPH (benign prostatic hyperplasia) ICD Code: N40.0 (6) Old FL (myocardial infarction) ICD Code: I25.2 (7) Pacemaker ICD Code: Z95.0 (8) Parotitis ICD Code: K11.20 (9) Ventral hernia ICD Code: K43.9 Assessment and Plan Assessment and Plan 75 year old male with right parotiditis (bacterial). Improvement today. Continued Unasyn and Clindamycin for skin coverage given recent right shoulder abscess with I&D, preceding onset of parotiditis. Infectious parotiditis, right Worsened last night, but improved again through the morning Unasyn Clindamycin (given recent right shoulder abscess) NSAID PRN pain treatments Monitor for improvement Insomnia Resume home dose of Valium daily at bedtime Benign prostatic hypertrophy Resume home treatments and monitor clinically Coronary artery disease Old myocardial infarction CABG 2 Artificial heart valve Definitive liver pacemaker Aortic aneurysm with history of repair Continue baseline treatments and monitor clinically Continue Coumadin Follow INR No chest pain Healing right shoulder abscess Continue daily dressing changes Antibiotic treatment is completed Ventral abdominal wall hernia Follow up as an outpatient DVT prophylaxis Coumadin Cecil Otto MD July 26, 2016 8:55 am
[2016-07-26] MEDS: CARBOXYMETHYLCELL SOD 0.5% OPTH SOLN 15 ML BTL EACH EYE SCH ×4 (09:07→22:08)
[2016-07-26] MEDS: MULTIVITAMIN-OPHTHALMIC 1 TAB PO SCH ×2 (09:08→22:13)
[2016-07-26] MEDS: ASPIRIN EC 81 MG TABEC PO SCH (09:08)
[2016-07-26] MEDS: LORATADINE 10 MG TAB PO SCH (09:08)
[2016-07-26] MEDS: DOCUSATE SODIUM 100 MG CAP PO SCH ×2 (09:08→22:08)
[2016-07-26] MEDS: LACTOBACILLUS ACIDOPHILUS TAB PO SCH ×3 (09:08→17:03)
[2016-07-26] MEDS: SODIUM CHLORIDE 0.9% FLUSH 10 ML FLUSH IV FLUSH SCH ×2 (09:08→22:08)
[2016-07-26] MEDS: METOPROLOL SUCCINATE 25 MG EXTENDED RELEASE TAB PO SCH (09:09)
[2016-07-26] MEDS: QUEtiapine FUMARATE 25 MG TAB PO SCH ×2 (09:09→22:11)
[2016-07-26] MEDS: SERTRALINE HCL 100 MG TAB PO SCH (09:09)
[2016-07-26] MEDS: PANTOPRAZOLE SOD 20 MG DELAYED RELEASE TAB PO SCH (09:09)
[2016-07-26] MEDS: LISINOPRIL 20 MG TAB PO SCH (09:09)
[2016-07-26] MEDS: TRIAMCINOLONE ACETONIDE 0.1% CREAM 15 GM TOPICAL SCH ×2 (09:10→22:12)
[2016-07-26] MEDS: NAPROXEN 250 MG TAB PO SCH ×2 (09:11→22:11)
[2016-07-26] MEDS: WARFARIN SOD 5 MG TAB PO SCH (16:10)
[2016-07-26] MEDS: TERAZOSIN HCL 1 MG CAP PO SCH (22:11)
[2016-07-26] MEDS: PRAVASTATIN SOD 40 MG TAB PO SCH (22:11)
[2016-07-27 00:20] VITALS: BP 131/70; PULSE 60; RESP 18; TEMP 98.6; O2SAT 95
[2016-07-27] MEDS: CLINDAMYCIN INJ 600 MG in SODIUM CHLORIDE 0.9% INJ 100 ML IV SCH ×2 (02:09→11:30)
[2016-07-27] MEDS: AMPICILLIN-SULBACTAM INJ 3 GM in SODIUM CHLORIDE 0.9% INJ 100 ML IV SCH ×2 (03:57→09:22)
[2016-07-27 08:00] VITALS: O2SAT 93
[2016-07-27 08:38] VITALS: BP 144/95; PULSE 85; RESP 18; TEMP 97; O2SAT 90
[2016-07-27] MEDS: PANTOPRAZOLE SOD 20 MG DELAYED RELEASE TAB PO SCH (09:14)
[2016-07-27] MEDS: SERTRALINE HCL 100 MG TAB PO SCH (09:14)
[2016-07-27] MEDS: ASPIRIN EC 81 MG TABEC PO SCH (09:14)
[2016-07-27] MEDS: LACTOBACILLUS ACIDOPHILUS TAB PO SCH ×2 (09:14→12:50)
[2016-07-27] MEDS: METOPROLOL SUCCINATE 25 MG EXTENDED RELEASE TAB PO SCH (09:14)
[2016-07-27] MEDS: DOCUSATE SODIUM 100 MG CAP PO SCH (09:14)
[2016-07-27] MEDS: LISINOPRIL 20 MG TAB PO SCH (09:14)
[2016-07-27] MEDS: MULTIVITAMIN-OPHTHALMIC 1 TAB PO SCH (09:14)
[2016-07-27] MEDS: QUEtiapine FUMARATE 25 MG TAB PO SCH (09:14)
[2016-07-27] MEDS: LORATADINE 10 MG TAB PO SCH (09:14)
[2016-07-27] MEDS: SODIUM CHLORIDE 0.9% FLUSH 10 ML FLUSH IV FLUSH SCH (09:17)
[2016-07-27] MEDS: CARBOXYMETHYLCELL SOD 0.5% OPTH SOLN 15 ML BTL EACH EYE SCH ×2 (09:18→12:52)
[2016-07-27] MEDS: TRIAMCINOLONE ACETONIDE 0.1% CREAM 15 GM TOPICAL SCH (09:18)
[2016-07-27] MEDS: NAPROXEN 250 MG TAB PO SCH (11:33)
--- NOTE | 2016-07-27 13:58 | HHI.DS ---
Discharge Summary Admission Date July 24, 2016 at 05:00 Discharge Date: July 27, 2016 Admitting Diagnosis R parotitis (1) BPH (benign prostatic hyperplasia) ICD Code: N40.0 Diagnosis: Secondary (2) Hx of aortic aneurysm repair ICD Code: Z98.890 Diagnosis: Secondary (3) History of artificial heart valve ICD Code: Z95.2 Diagnosis: Secondary (4) Hx of CABG ICD Code: Z95.1 Diagnosis: Secondary (5) Old [place] (myocardial infarction) ICD Code: I25.2 Diagnosis: Secondary (6) Pacemaker ICD Code: Z95.0 Diagnosis: Secondary (7) CAD (coronary artery disease) ICD Code: I25.10 Diagnosis: Secondary (8) Ventral hernia ICD Code: K43.9 Diagnosis: Secondary (9) Insomnia ICD Code: G47.00 Diagnosis: Secondary (10) Parotitis ICD Code: K11.20 Diagnosis: Principal (11) Upper back Abscess S/P In D Diagnosis: Secondary Procedures None Brief History - From Admission Mr. Dangelo is a 75 year old male. He is admitted here with a right mandibular swelling with tenderness. This has progressed over 4 days became acutely tender yesterday prior to his arrival to the hospital. Scan showed a right parotiditis without evidence of abscess or parotid stone. She has not had previous episodes like this before. Viral syndrome is not reported. She was hospitalized recently, for about 6 days, for a right back abscess and is doing daily dressing changes for this. Etiology for his infection may be related to the previous infection. His past medical history includes coronary artery disease, old OR, CABG 2, aortic aneurysm repair surgery, artificial heart valve , recent right shoulder abscess, benign prostatic hypertrophy, abdominal ventral wall hernia, and a pacemaker defibrillator. He has no complaints of chest pain today. Since last night he has had only mild improvement in his right parotid tenderness and swelling. No other complaints today. CBC/BMP: 07/25/16 0755 07/25/16 0755 Significant Findings Laboratory Tests Test 07/25/16 07:55 White Blood Count 3.7 TH/MM3 (4.0-11.0) Platelet Count 128 TH/MM3 (150-450) Monocytes (%) (Auto) 10.2 % (0.0-8.0) Eosinophils (%) (Auto) 8.4 % (0.0-4.0) Prothrombin Time 29.4 SEC (9.8-11.6) Blood Urea Nitrogen 20 MG/DL (7-18) Estimat Glomerular Filtration 54 ML/MIN (>89) Rate Aspartate Amino Transf 71 U/L (15-37) (AST/SGOT) Imaging Last Impressions Neck CT 07/25/16 0000 Signed Impressions: Service Date/Time: Wednesday, July 25, 2016 18:38 - CONCLUSION: Asymmetry to the parotid glands with the right parotid gland appearing larger. There is a complex mass seen in the posteromedial aspect of the right parotid gland. This could be an enlarging inflamed lymph node versus other complex masses. This mass appears slightly more prominent on the current examination than it did on the examination from 07/24/2016. No other significant change is seen. Jeb Artis MD Hospital Course Mr. dangelo is a 75-year-old male who was admitted for right parotiditis. There is some suspicious this could've been related to a right back abscess as he developed the parotiditis right after having an I&D of his right back abscess. He is treated with Unasyn and clindamycin. In the first 48 hours he had a couple episodes where the parotiditis worsened. He was rescanned and no formation of abscess on second imaging compared to the first imaging was present. Incision and drainage is not indicated in this setting. Today he is having significant improvement in both swelling and tenderness. He showing good response to his current treatment. He is changed to by mouth treatments today and medically cleared for discharge to home. Pt Condition on Discharge: Stable Discharge Disposition: Discharge Home Discharge Time: <= 30 minutes Discharge Instructions DIET: Follow Instructions for: As Tolerated, No Restrictions Activities you can perform: Regular-No Restrictions Follow up Referrals: PCP Follow-up - 2 Weeks New Medications: Amoxicillin-Clavulanate (Augmentin) 875-125 mg Tab 875 MG PO BID not for use in CrCl <30 ml/min. Infection #14 Ref 0 TAB Clindamycin (Clindamycin) 300 Mg Cap 300 MG PO TID Infection #21 Ref 0 CAP Lactobacillus Acidophilus (Lactobacillus Acidophilus) 1 Tab Tab 1 TAB PO TIDAC Nutritional Supplement #30 Ref 0 TAB Continued Medications: Aspirin (Aspirin) 81 Mg Tabdr 81 MG PO DAILY TAB Betamethasone Valerate Topical (Betamethasone Valerate Topical) 0.1% Cream 1 APPLIC TOPICAL BID Dermatoses #45 Ref 0 GM Bisacodyl (Eq Gentle Laxative) 5 Mg Tab 5 MG PO HS PRN CONSTIPATION Carboxymethylcellulose Sodium (Eq Restore Plus Lubricant) 0.5 % Jacoby 1 DROP EACH EYE QID Diazepam (Diazepam) 5 Mg Tab 5 MG PO TID PRN ANXIETY Ref 0 TAB Diclofenac Topical (Diclofenac Topical) 1% Gel 1 APPLIC TOPICAL Q6HR Apply sparingly to rt ankle joint-apply with gloves or applicator PRN PAIN/INFLAMMATION #100 Ref 0 GM Docusate Sodium (Docusate Sodium) 100 Mg Cap 100 MG PO BID Prevent Constipation #60 Ref 0 CAP Furosemide (Furosemide) 40 Mg Tab 40 MG PO DAILY PRN EDEMA #30 Ref 0 TAB Hydrocortisone Topical (Hydrocortisone Topical) 2.5% Cream 1 APPLIC TOPICAL BID PRN INFLAMMATION Ref 0 GM Lactobacillus Acidophilus (Acidophilus/l-Sporogenes) 1 Tab Tab 1 TAB PO TID ABASSDIA Days 5 TAB Lisinopril (Lisinopril) 20 Mg Tab 20 MG PO DAILY #30 Ref 0 TAB Loratadine (Claritin) 10 Mg Tab 10 MG PO DAILY Allergy Management Ref 0 TAB Metoprolol Succinate ER 24 HR (Metoprolol Succinate ER 24 HR) 25 Mg Tab 25 MG PO DAILY #30 Ref 0 TAB Multiple Vitamins W/ Minerals (Preservision Areds 2) 1 Cap 1 CAP PO BID Nutritional Supplement Ref 0 CAP Omeprazole (Omeprazole) 20 Mg Tab 20 MG PO DAILY #30 Ref 0 TAB Pravastatin (Pravastatin) 40 Mg Tab 40 MG PO HS Cholesterol Management #30 Ref 0 TAB Quetiapine ER (Quetiapine ER) 50 Mg Tab 50 MG PO HS #30 Ref 0 TAB Sertraline (Sertraline) 100 Mg Tab 150 MG PO DAILY #30 Ref 0 TAB Terazosin (Terazosin) 2 Mg Cap 6 MG PO HS #30 Ref 0 CAP Warfarin (Warfarin) 5 Mg Tab 5 MG PO SUMOTUTHFRSA Take 1 tablet (5mg) daily on Wednesday,Wednesday,Wednesday, ,Wednesday and Wednesday Blood Clot Prevention #30 Ref 0 TAB Warfarin (Warfarin) 5 Mg Tab 2.5 MG PO WEDNESDAY Take 1/2 tablet (2.5mg) daily on Wednesdays Blood Clot Prevention #30 Ref 0 TAB Cecil Otto MD July 27, 2016 13:58
[2016-07-29] MEDS ORDERED: WARFARIN SOD 2.5 MG TAB PO SCH (16:00)
== END 2016-07-27 13:20 | disposition home or self-care (01) ==
LOC: PHED 01:47 → PHEDA 05:00 → PH3A 07:40
PROVIDERS: ADMIT Hospitalist; ATTEND Hospitalist
DX: K11.20 Sialoadenitis, unspecified (principal); G47.00 Insomnia, unspecified; I25.10 Atherosclerotic heart disease of native coronary artery without angina pectoris; I25.2 Old myocardial infarction; N40.0 Benign prostatic hyperplasia without lower urinary tract symptoms; I11.0 Hypertensive heart disease with heart failure; I50.9 Heart failure, unspecified; K43.9 Ventral hernia without obstruction or gangrene; I48.91 Unspecified atrial fibrillation; M19.90 Unspecified osteoarthritis, unspecified site; E78.00 Pure hypercholesterolemia, unspecified; F31.9 Bipolar disorder, unspecified; F41.9 Anxiety disorder, unspecified; K21.9 Gastro-esophageal reflux disease without esophagitis; Z48.01 Encounter for change or removal of surgical wound dressing; Z95.1 Presence of aortocoronary bypass graft; Z95.2 Presence of prosthetic heart valve; Z86.79 Personal history of other diseases of the circulatory system; Z95.0 Presence of cardiac pacemaker; Z88.1 Allergy status to other antibiotic agents; Z88.5 Allergy status to narcotic agent; Z88.7 Allergy status to serum and vaccine; Z79.01 Long term (current) use of anticoagulants; Z95.5 Presence of coronary angioplasty implant and graft; Z87.891 Personal history of nicotine dependence; Z85.828 Personal history of other malignant neoplasm of skin; Z79.82 Long term (current) use of aspirin; G47.30 Sleep apnea, unspecified; E78.5 Hyperlipidemia, unspecified; M10.9 Gout, unspecified; K57.92 Diverticulitis of intestine, part unspecified, without perforation or abscess without bleeding; Z79.899 Other long term (current) drug therapy
CPT/HCPCS: 70491; 80048; 80053; 85025; 85610; 87040; 99284; G0378; J0295; Q9967

== ENCOUNTER 2017-04-24 14:28 | Inpatient (IN) | payer OTHER ==
[2017-04-24] VITALS (8 sets, daily range): BP systolic 100–134; BP diastolic 50–64; PULSE 65–86; RESP 16–19; TEMP 99.6–100.8; O2SAT 90–97
[~2017-04-24] VITALS: Ht 182.9 cm; Wt 108.4 kg
[~2017-04-24 14:28] MED LIST changes: +AUGM875T PO; -BETA0.1L TOPICAL; -CLIN150 PO; +CLIN300C5 PO; -DOCU100C PO; +DOCU100C15 PO; +LACTTAB8 PO; +METO1TAB42 PO; -METO25TA6 PO; -OMEP20TA PO; +OMEP20TA93 PO
--- NOTE | 2017-04-24 14:44 | PD ---
HPI Chief Complaint: generalized weakness, respiratory distress Time Seen by Provider: 14:43 Travel History International Travel<30 days: No Contact w/Intl Traveler<30days: No Traveled to known affect area: No History of Present Illness HPI 76-year-old male came to the emergency room brought by EMS after he slipped on the bed and was unable to stand up. Patient says that he has been sick with fever, chills and cough for past 4 days. His is admitted here for influenza. Patient has progressively getting worse. He has not been able to eat or drink much. His to vomiting or diarrhea. He was saturating 88% on 4 L of oxygen when I went in the room and talking to him. He is trying to answer questions almost appropriately. His temperature in triage was 100.8. Patient appears to be in moderate distress. [facility] Past Medical History Narrative Medical List of his past medical, surgical, social and family history is reviewed from the nursing note. Hx Anticoagulant Therapy: Yes (COUMADIN) AAA: Yes Arthritis: Yes Atrial Fibrillation: Yes Bipolar Disorder: Yes Anxiety: Yes Depression: Yes Heart Rhythm Problems: Yes Cancer: Yes (SKIN) Cardiac Catheterization: Yes Cardiovascular Problems: Yes High Cholesterol: Yes Chemotherapy: No Chest Pain: Yes Congestive Heart Failure: Yes Coronary Artery Disease: Yes Diabetes: No Diminished Hearing: Yes (BILAT HEARING AIDS) Diverticulitis: Yes Endocrine: No Gastrointestinal Disorders: Yes GERD: Yes Gout: Yes Genitourinary: No Hypertension: Yes Immune Disorder: No Implanted Vascular Access Dvce: No Musculoskeletal: No Neurologic: No Psychiatric: Yes Reproductive: No Respiratory: No Immunizations Current: Yes Myocardial Infarction: Yes (x1) Pneumonia: Yes Radiation Therapy: No Sleep Apnea: Yes (CPAP) PNEUMOCCOCAL Vaccine (Year): 2008 Past Surgical History Abdominal Surgery: Yes (POLYPS AND PORTION OF BOWEL REMOVAL) AICD: Yes Appendectomy: Yes Cardiac Surgery: Yes (Afib, open heart, aortic valve replaced) Coronary Artery Bypass Graft: Yes (DOUBLE BYPASS WITH AORTIC VALVE REPLACEMENT) Coronary Stent: Yes Genitourinary Surgery: Yes (POLYPS REMOVED) Neurologic Surgery: No Pacemaker: Yes (MAR 2013) Tonsillectomy: Yes Valve Replacement: Yes Other Surgery: Yes (LEFT GREAT TOE, cyst removed from back) Social History Alcohol Use: Yes (occas. mix drinks) Tobacco Use: No (QUIT 30 + YRS AGO SMOKED 1 PPD) Substance Use: No Allergies-Medications (Allergen,Severity, Reaction): Coded Allergies: bacitracin (Unverified Allergy, Severe, Rash, 04/24/17) gramicidin D (Unverified Allergy, Severe, Rash, 04/24/17) hydromorphone (Unverified Allergy, Severe, Nausea/Vomiting, 04/24/17) kiwi (Unverified Allergy, Severe, RASH, 04/24/17) neomycin (Unverified Allergy, Severe, Rash, 04/24/17) polymyxin B (Unverified Allergy, Severe, Rash, 04/24/17) tetanus toxoid, adsorbed (Unverified Allergy, Severe, HIVES, 04/24/17) Comments List of his allergies reviewed from the nursing note. Reported Meds & Prescriptions Reported Meds & Active Scripts Active Lactobacillus Acidophilus 1 Tab Tab 1 Tab PO TIDAC Reported Warfarin 5 Mg Tab 2.5 Mg PO WEDNESDAY Take 1/2 tablet (2.5mg) daily on Wednesdays Hydrocortisone Topical 2.5% Cream 1 Applic TOPICAL BID PRN Diclofenac Topical 1% Gel 1 Applic TOPICAL Q6HR PRN Apply sparingly to rt ankle joint-apply with gloves or applicator Warfarin 5 Mg Tab 5 Mg PO SUMOTUTHFRSA Take 1 tablet (5mg) daily on Wednesday,Wednesday,Wednesday,,Wednesday and Wednesday Terazosin (Terazosin HCl) 2 Mg Cap 6 Mg PO HS Quetiapine ER (Quetiapine Fumarate) 50 Mg Tab 50 Mg PO HS Pravastatin 40 Mg Tab 40 Mg PO HS Omeprazole 20 Mg Tab 20 Mg PO DAILY Metoprolol Succinate ER 24 HR (Metoprolol Succinate) 25 Mg Tab 25 Mg PO DAILY Lisinopril 20 Mg Tab 20 Mg PO DAILY Furosemide 40 Mg Tab 40 Mg PO DAILY PRN Docusate Sodium 100 Mg Cap 100 Mg PO BID Diazepam 5 Mg Tab 5 Mg PO TID PRN Eq Gentle Laxative (Bisacodyl) 5 Mg Tab 5 Mg PO HS PRN Betamethasone Valerate Topical 0.1% Cream 1 Applic TOPICAL BID Narrative Medication List of his home medications reviewed from the nursing note. Review of Systems Except as stated in HPI: all other systems reviewed are Neg General / Constitutional: Positive: Fever, Chills Respiratory: Positive: Cough Physical Exam Narrative GENERAL: Elderly, moderate distress, obese SKIN: Focused skin assessment warm/dry. HEAD: Atraumatic. Normocephalic. EYES: Pupils equal and round. No scleral icterus. No injection or drainage. ENT: No nasal bleeding or discharge. Mucous membranes pink and moist. NECK: Trachea midline. No JVD. CARDIOVASCULAR: Regular rate and rhythm. No murmur appreciated. RESPIRATORY: Decreased air entry bilaterally with end expiratory wheeze and coarse rales GASTROINTESTINAL: Abdomen soft, non-tender, nondistended. Hepatic and splenic margins not palpable. MUSCULOSKELETAL: No obvious deformities. No clubbing. No cyanosis. No edema. NEUROLOGICAL: Awake and alert. No obvious cranial nerve deficits. Motor grossly within normal limits. Normal speech. PSYCHIATRIC: Appropriate mood and affect; insight and judgment normal. Data Data Last Documented VS Vital Signs Date Time Temp Pulse Resp B/P (MAP) Pulse Ox O2 Delivery O2 Flow Rate FiO2 04/24/17 15:35 92 Nasal Cannula 4.00 04/24/17 14:46 100.8 65 16 134/64 (87) Orders Orders Sepsis Workup Initiated (04/24/17 ) Electrocardiogram (04/24/17 14:59) Complete Blood Count With Diff (04/24/17 14:59) Comprehensive Metabolic Panel (04/24/17 14:59) Prothrombin Time / Inr (Pt) (04/24/17 14:59) Lactic Acid Sepsis Protocol (04/24/17 14:59) Troponin I (04/24/17 14:59) Influenzae A/B Antigen (04/24/17 14:59) Blood Culture (04/24/17 14:59) Chest, Single Ap (04/24/17 14:59) Blood Glucose (04/24/17 14:59) Ecg Monitoring (04/24/17 14:59) Iv Access Insert/Monitor (04/24/17 14:59) Oximetry (04/24/17 14:59) Oxygen Administration (04/24/17 14:59) B-Type Natriuretic Peptide (04/24/17 14:59) Arterial Blood Gas (Abg) (04/24/17 ) Admit To Inpatient (04/24/17 ) Vital Signs (Adult) Q4H (04/24/17 15:41) Activity Bed Rest With Brp (04/24/17 15:41) Diet Regular Basic (04/24/17 Dinner) Sodium Chlor 0.9% 1000 Ml Inj (Ns 1000 M (04/24/17 15:41) Sodium Chloride 0.9% Flush (Ns Flush) (04/24/17 15:45) Sodium Chloride 0.9% Flush (Ns Flush) (04/24/17 21:00) Acetaminophen (Tylenol) (04/24/17 15:45) Ondansetron Inj (Zofran Inj) (04/24/17 15:45) Basic Metabolic Panel (Bmp) (04/25/17 06:00) Complete Blood Count With Diff (04/25/17 06:00) Resp Oxygen Slava C Titrat 1-4 L (04/24/17 ) Enoxaparin Inj (Lovenox Inj) (04/24/17 15:45) Naloxone Inj (Narcan Inj) (04/24/17 15:45) Sennosides (Senokot) (04/24/17 15:45) Ceftriaxone Inj (Rocephin Inj) (04/24/17 17:00) Azithromycin Inj (Zithromax Inj) (04/24/17 16:00) Oseltamivir (Tamiflu) (04/24/17 21:00) Albuterol-Ipratropium Neb (Duoneb Neb) (04/24/17 15:45) Admit Order (Ed Use Only) (04/24/17 15:49) Labs Laboratory Tests Test 04/24/17 14:55 04/24/17 14:59 04/24/17 15:10 White Blood Count 10.6 TH/MM3 Red Blood Count 5.13 MIL/MM3 Hemoglobin 14.5 GM/DL Hematocrit 43.3 % Mean Corpuscular Volume 84.4 FL Mean Corpuscular Hemoglobin 28.3 PG Mean Corpuscular Hemoglobin Concent 33.6 % Red Cell Distribution Width 13.9 % Platelet Count 113 TH/MM3 Mean Platelet Volume 8.3 FL Neutrophils (%) (Auto) 85.1 % Lymphocytes (%) (Auto) 6.8 % Monocytes (%) (Auto) 7.2 % Eosinophils (%) (Auto) 0.7 % Basophils (%) (Auto) 0.2 % Neutrophils # (Auto) 9.0 TH/MM3 Lymphocytes # (Auto) 0.7 TH/MM3 Monocytes # (Auto) 0.8 TH/MM3 Eosinophils # (Auto) 0.1 TH/MM3 Basophils # (Auto) 0.0 TH/MM3 CBC Comment DIFF FINAL Differential Comment Prothrombin Time 49.5 SEC Prothromb Time International Ratio 4.9 RATIO Blood Urea Nitrogen 18 MG/DL Creatinine 1.60 MG/DL Random Glucose 125 MG/DL Total Protein 7.1 GM/DL Albumin 3.5 GM/DL Calcium Level 8.1 MG/DL Alkaline Phosphatase 69 U/L Aspartate Amino Transf (AST/SGOT) 70 U/L Alanine Aminotransferase (ALT/SGPT) 17 U/L Total Bilirubin 1.4 MG/DL Sodium Level 143 MEQ/L Potassium Level 3.8 MEQ/L Chloride Level 111 MEQ/L Carbon Dioxide Level 25.2 MEQ/L Anion Gap 7 MEQ/L Estimat Glomerular Filtration Rate 42 ML/MIN Troponin I 0.03 NG/ML B-Type Natriuretic Peptide 273 PG/ML Lactic Acid Level 2.2 mmol/L Blood Gas Puncture Site RT RADIAL Blood Gas Patient Temperature 98.6 Blood Gas HCO3 24 mmol/L Blood Gas Base Excess 0.4 mmol/L Blood Gas Oxygen Saturation 93 % Arterial Blood pH 7.41 Arterial Blood Partial Pressure CO2 39 mmHG Arterial Blood Partial Pressure O2 74 mmHG Arterial Blood Oxygen Content 19.0 Vol % Arterial Blood Carboxyhemoglobin 2.1 % Arterial Blood Methemoglobin 1.1 % Blood Gas Hemoglobin 14.5 G/DL Oxygen Delivery Device RA Blood Gas Inspired Oxygen 21 % MDM Medical Decision Making Medical Screen Exam Complete: Yes Emergency Medical Condition: Yes Medical Record Reviewed: Yes Interpretation(s) Twelve-lead EKG was reviewed by me. Normal sinus rhythm, left axis deviation, multiple PVCs, lateral ST depression and T wave inversions. Heart rate of 90 bpm. Differential Diagnosis Pneumonia, influenza, congestive heart failure, acute COPD exacerbation Narrative Course 3:46 PM blood test results are back. Patient has elevated lactic acid level. Influenza is positive. Given the fact that the sequences been going on for 4 days now I have not given any Tamiflu to this patient. I've ordered 2 DuoNeb since his BNP appears to be within normal range. I have admitted him to the hospitalist for respiratory distress. Critical Care Narrative Aggregate critical care time was 45 minutes. Time to perform other separately billable procedures was not included in the critical care time. My time did not include minutes spent treating any other patients simultaneously or on activities that did not directly contribute to the patient's treatment. The services I provided to this patient were to treat and/or prevent clinically significant deterioration that could result in: Respiratory distress, hypoxia, lactic acidosis, influenza A, advanced age I provided critical care services requiring my management, as noted below: Chart data review, documentation time, medication orders and management, vital sign assessments/reviewing monitor data, ordering and reviewing lab tests, ordering and interpreting/reviewing x-rays and diagnostic studies, care of the patient and discussion of the patient with the admitting physicians. Procedures EKG Prior to Arrival: No Diagnosis Primary Impression: Respiratory distress Additional Impressions: Hypoxia Influenza A Lactic acidosis Elevated INR (international normalized ratio) due to prior anticoagulant medication ingestion Generalized weakness Admitting Information Admitting Physician Requests: Ghanshyam Enamorado MD Apr 24, 2017 14:44
[2017-04-24 15:21] LABS: BASOPHIL % 0.2 % (0.0-2.0); EOSINOPHIL # 0.1 TH/MM3 (0-0.4); EOSINOPHIL % 0.7 % (0.0-4.0); HEMATOCRIT 43.3 % (39.0-51.0); HEMOGLOBIN 14.5 GM/DL (13.0-17.0); LYMPH % 6.8 % (9.0-44.0); LYMPHOCYTE # 0.7 TH/MM3 (1.0-4.8); MEAN CELL VOLUME 84.4 FL (80.0-100.0); MEAN CORPUSCULAR HEMOGLOBIN 28.3 PG (27.0-34.0); MEAN CORPUSCULAR HGB CONC 33.6 % (32.0-36.0); MEAN PLATELET VOLUME 8.3 FL (7.0-11.0); MONO % 7.2 % (0.0-8.0); MONOCYTE # 0.8 TH/MM3 (0-0.9); NEUT % 85.1 % (16.0-70.0); PLATELET COUNT 113 TH/MM3 (150-450); RED BLOOD COUNT 5.13 MIL/MM3 (4.50-5.90); RED CELL DISTRIBUTION WIDTH 13.9 % (11.6-17.2); WHITE BLOOD COUNT 10.6 TH/MM3 (4.0-11.0)
[2017-04-24 15:24] LABS: CHLORIDE 111 MEQ/L (98-107); SODIUM (NA) 143 MEQ/L (136-145)
[2017-04-24 15:27] LABS: ALBUMIN 3.5 GM/DL (3.4-5.0); BICARBONATE 25.2 MEQ/L (21.0-32.0); BLOOD UREA NITROGEN 18 MG/DL (7-18); CALCIUM 8.1 MG/DL (8.5-10.1); GLUCOSE,RANDOM 125 MG/DL (74-106)
[2017-04-24 15:28] LABS: INTERNATIONAL NORMALIZED RATIO 4.9 RATIO; PROTHROMBIN TIME - PATIENT 49.5 SEC (9.8-11.6)
[2017-04-24 15:30] LABS: ALT (GPT) 17 U/L (12-78); AST (GOT) 70 U/L (15-37)
[2017-04-24 15:31] LABS: GLOMERULAR FILTRATION RATE 42 ML/MIN (>89)
[2017-04-24 15:32] LABS: TOTAL BILIRUBIN ADULT 1.4 MG/DL (0.2-1.0); TOTAL PROTEIN 7.1 GM/DL (6.4-8.2)
[2017-04-24 15:33] LABS: ALKALINE PHOSPHATASE 69 U/L (45-117)
[2017-04-24 15:33] LABS: LACTIC ACID SEPSIS PROTOCOL 2.2 mmol/L (0.4-2.0)
[2017-04-24 15:35] LABS: TROPONIN I 0.03 NG/ML (0.02-0.05)
[2017-04-24] MEDS ORDERED: ENOXAPARIN SODIUM 40 MG/0.4 ML SYRINGE SQ SCH (15:45)
[2017-04-24] MEDS ORDERED: ONDANSETRON HCL 4 MG/2 ML VIAL IVP PRN (15:45)
[2017-04-24] MEDS ORDERED: ACETAMINOPHEN 325 MG TAB PO PRN (15:45)
[2017-04-24] MEDS ORDERED: SENNOSIDES 8.6 MG TAB PO PRN (15:45)
[2017-04-24] MEDS ORDERED: NALOXONE HCL 0.4 MG/ML AMP IV PUSH PRN (15:45)
[2017-04-24] MEDS ORDERED: SODIUM CHLORIDE 0.9% FLUSH 10 ML FLUSH IV FLUSH PRN (15:45)
[2017-04-24] MEDS: RESP: ALBUTEROL 2.5 MG/IPRATROPIUM 0.5 MG NEB (SCH) INH ×2 (15:50→15:51)
[2017-04-24] MEDS ORDERED: AZITHROMYCIN INJ 500 MG in SODIUM CHLOR 0.9% 250 ML INJ 250 ML IV SCH (16:00)
[2017-04-24] MEDS: cefTRIAXone INJ 1,000 MG in SODIUM CHLORIDE 0.9% INJ 100 ML IV SCH (16:02)
[2017-04-24] MEDS: SODIUM CHLOR 0.9% 1000 ML INJ 1,000 ML IV SCH (16:03)
--- NOTE | 2017-04-24 16:16 | RADRPT ---
EXAM DATE/TIME: 04/24/2017 15:42 [facility] COMPARISON: No previous studies available for comparison. INDICATIONS : Flu like symptoms- Shortness of breath and chest pain. MEDICAL HISTORY : Myocardial infarction. Aneurysm, abdominal. Hypercholesterolemia. Hypertension, Congestive heart failure, Coronary artery disease, AFIB, Pneumonia. SURGICAL HISTORY : CABG. Aortic valve replacement, Cardiac cath, Coronary stent, Pacemaker, Internal defibrillator. ENCOUNTER: Initial ACUITY: 2 days PAIN SCORE: 3/10 LOCATION: Bilateral chest FINDINGS: Portable AP view of the chest demonstrates a normal-sized cardiac silhouette in this patient post med ann sternotomy and valve replacement. Left chest wall cardiac pacing device/AICD is present. Lungs ar e mildly underinflated. No pleural effusion, airspace consolidation, or pneumothorax is identified. T he bones and soft tissues demonstrate no acute finding. CONCLUSION: No acute cardiopulmonary abnormality is identified. Jeb Ramon MD on April 24, 2017 at 16:13 Board Certified Radiologist. This report was verified electronically.
[2017-04-24] MEDS ORDERED: FUROSEMIDE 40 MG TAB PO PRN (16:30)
--- NOTE | 2017-04-24 16:33 | HHI.HP ---
[facility] Admission Diagnosis respiratory distress, lactic acidosis, influenza a, generalized weak Diagnoses: Travel History International Travel<30 Days: No Contact w/Intl Traveler <30 Da: No Traveled to Known Affected Are: No Sepsis Criteria SIRS Criteria (2 or more): Temp > 100.9 or < 96.8 History of Present Illness Patient evaluated today in urgency for follow-up of weakness and respiratory distress. He has a history of coronary disease with aortic valve replacement. Patient says he's been having fevers and chills for the last 4 days and was exposed to influenza. His actually admitted here for COPD exacerbation. Patient has progressively been getting worse while she has been in the hospital. He has not been eating or drinking much. He came to the hospital hypoxemic with 88% on room air and was put on oxygen and this improved. His temperature was 100.8. Patient is not tachycardic but does have history of atrial fibrillation which appears to be controlled. He is on Coumadin. He feels "lousy ". He has been given IV fluids and a bronchodilator by nebulizer has felt much better. For these reasons the patient is admitted to the hospital Review of Systems Constitutional: COMPLAINS OF: Fatigue, Dizziness, Night Sweats, DENIES: Diaphoretic episodes, Fever, Weight gain, Weight loss, Chills, Change in appetite Endocrine: DENIES: Heat/cold intolerance, Polydipsia, Polyuria, Polyphagia Eyes: DENIES: Blurred vision, Diplopia, Eye inflammation, Eye pain, Vision loss , Photosensitivity, Double Vision Ears, nose, mouth, throat: DENIES: Tinnitus, Hearing loss, Vertigo, Nasal discharge, Oral lesions, Throat pain, Hoarseness, Ear Pain, Running Nose, Epistaxis, Sinus Pain, Toothache, Odynophagia Respiratory: DENIES: Apneas, Cough, Snoring, Wheezing, Hemoptysis, Sputum production, Shortness of breath Gastrointestinal: DENIES: Abdominal pain, Black stools, Bloody stools, Constipation, Diarrhea, Nausea, Vomiting, Difficulty Swallowing, Anorexia Genitourinary: DENIES: Sexual dysfunction, Urinary frequency, Urinary incontinence, Urgency, Hematuria, Dysuria, Nocturia, Penile Discharge, Testicular Pain, Testicular Swelling Musculoskeletal: DENIES: Joint pain, Muscle aches, Stiffness, Joint Swelling, Back pain, Neck pain Integumentary: DENIES: Abnormal pigmentation, Nail changes, Pruritus, Rash Hematologic/lymphatic: DENIES: Bruising, Lymphadenopathy Immunologic/allergic: DENIES: Eczema, Urticaria Neurologic: DENIES: Abnormal gait, Headache, Localized weakness, Paresthesias, Seizures, Speech Problems, Tremor, Poor Balance Psychiatric: DENIES: Anxiety, Confusion, Mood changes, Depression, Hallucinations, Agitation, Suicidal Ideation, Homicidal Ideation, Delusions Except as stated in HPI: all other systems reviewed are Neg Past Family Social History Past Medical History Fibrillation Coronary artery disease and cardiac bypass Coumadin therapy Depression/anxiety Dyspepsia Hyperlipidemia Atrial fibrillation on Coumadin Hypertension Past Surgical History Knees, rotator cuff AICD/pacemaker Bowel surgery Appendectomy Polypectomy Skin surgeries Valve replacement Reported Medications Reviewed in the EMR, nothing new Allergies: Coded Allergies: bacitracin (Unverified Allergy, Severe, Rash, 04/24/17) gramicidin D (Unverified Allergy, Severe, Rash, 04/24/17) hydromorphone (Unverified Allergy, Severe, Nausea/Vomiting, 04/24/17) kiwi (Unverified Allergy, Severe, RASH, 04/24/17) neomycin (Unverified Allergy, Severe, Rash, 04/24/17) polymyxin B (Unverified Allergy, Severe, Rash, 04/24/17) tetanus toxoid, adsorbed (Unverified Allergy, Severe, HIVES, 04/24/17) Active Ordered Medications reviewed in the EMR Family History Brother with coronary Social History No current tobacco, quit 30 years ago, alcohol occasionally Physical Exam Vital Signs Vital Signs Date Time Temp Pulse Resp B/P (MAP) Pulse Ox O2 Delivery O2 Flow Rate FiO2 04/24/17 15:52 96 Nasal Cannula 3.00 04/24/17 15:35 92 Nasal Cannula 4.00 04/24/17 15:35 93 Nasal Cannula 4.00 04/24/17 14:46 100.8 65 16 134/64 (87) 90 Physical Exam GENERAL: This is a well-nourished, well-developed patient, in no apparent distress. SKIN: No rashes, ecchymoses or lesions. Cool and dry. HEAD: Atraumatic. Normocephalic. No temporal or scalp tenderness. EYES: Pupils equal round and reactive. Extraocular motions intact. No scleral icterus. No injection or drainage. ENT: Nose without bleeding, purulent drainage or septal hematoma. Throat without erythema, tonsillar hypertrophy or exudate. Uvula midline. Airway patent. NECK: Trachea midline. No JVD or lymphadenopathy. Supple, nontender, no meningeal signs. CARDIOVASCULAR: Regular rate and rhythm without murmurs, gallops, or rubs. RESPIRATORY: Clear to auscultation. Breath sounds equal bilaterally. No wheezes , rales, or rhonchi. GASTROINTESTINAL: Abdomen soft, non-tender, nondistended. No hepato-splenomegaly , or palpable masses. No guarding. MUSCULOSKELETAL: Extremities without clubbing, cyanosis, or edema. No joint tenderness, effusion, or edema noted. No calf tenderness. Negative Homans sign bilaterally. NEUROLOGICAL: Awake and alert. Cranial nerves II through XII intact. Motor and sensory grossly within normal limits. Five out of 5 muscle strength in all muscle groups. Normal speech. Laboratory Laboratory Tests Test 04/24/17 14:55 04/24/17 14:59 04/24/17 15:10 White Blood Count 10.6 Red Blood Count 5.13 Hemoglobin 14.5 Hematocrit 43.3 Mean Corpuscular Volume 84.4 Mean Corpuscular Hemoglobin 28.3 Mean Corpuscular Hemoglobin Concent 33.6 Red Cell Distribution Width 13.9 Platelet Count 113 Mean Platelet Volume 8.3 Neutrophils (%) (Auto) 85.1 Lymphocytes (%) (Auto) 6.8 Monocytes (%) (Auto) 7.2 Eosinophils (%) (Auto) 0.7 Basophils (%) (Auto) 0.2 Neutrophils # (Auto) 9.0 Lymphocytes # (Auto) 0.7 Monocytes # (Auto) 0.8 Eosinophils # (Auto) 0.1 Basophils # (Auto) 0.0 CBC Comment DIFF FINAL Differential Comment Prothrombin Time 49.5 Prothromb Time International Ratio 4.9 Blood Urea Nitrogen 18 Creatinine 1.60 Random Glucose 125 Total Protein 7.1 Albumin 3.5 Calcium Level 8.1 Alkaline Phosphatase 69 Aspartate Amino Transf (AST/SGOT) 70 Alanine Aminotransferase (ALT/SGPT) 17 Total Bilirubin 1.4 Sodium Level 143 Potassium Level 3.8 Chloride Level 111 Carbon Dioxide Level 25.2 Anion Gap 7 Estimat Glomerular Filtration Rate 42 Troponin I 0.03 B-Type Natriuretic Peptide 273 Lactic Acid Level 2.2 Blood Gas Puncture Site RT RADIAL Blood Gas Patient Temperature 98.6 Blood Gas HCO3 24 Blood Gas Base Excess 0.4 Blood Gas Oxygen Saturation 93 Arterial Blood pH 7.41 Arterial Blood Partial Pressure CO2 39 Arterial Blood Partial Pressure O2 74 Arterial Blood Oxygen Content 19.0 Arterial Blood Carboxyhemoglobin 2.1 Arterial Blood Methemoglobin 1.1 Blood Gas Hemoglobin 14.5 Oxygen Delivery Device RA Blood Gas Inspired Oxygen 21 Date/Time Source Procedure Growth Status 04/24/17 15:02 Blood Peripheral Aerobic Blood Culture Pending Received 04/24/17 15:02 Blood Peripheral Anaerobic Blood Culture Pending Received 04/24/17 15:02 Nasal Aspirate Influenza Types A,B Antigen ([facility]) - Final Positive For Flu A Antigen Complete Result Diagram: 04/24/17 1455 04/24/17 1455 Caprini VTE Risk Assessment Caprini VTE Risk Assessment: Mod/High Risk (score >= 2) VTE Pharm Contraindication: Coagulopathy,INR elevated Caprini Risk Assessment Model Point Value = 1 Point Value = 2 Point Value = 3 Point Value = 5 Age 41-60 Minor surgery BMI > 25 kg/m2 Swollen legs Varicose veins or History of unexplained or recurrent spontaneous Oral contraceptives or hormone replacement Sepsis (< 1 month) Serious lung disease, including pneumonia (< 1 month) Abnormal pulmonary function Acute myocardial infarction Congestive heart failure (< 1 month) History of inflammatory bowel disease Medical patient at bed rest Age 61-74 Arthroscopic surgery Major open surgery (> 45 min) Laparoscopic surgery (> 45 min) Malignancy Confined to bed (> 72 hours) Immobilizing plaster cast Central venous access Age >= 75 History of VTE Family history of VTE Factor V Leiden Prothrombin [id number] Lupus anticoagulant Anticardiolipin antibodies Elevated serum homocysteine Heparin-induced thrombocytopenia Other congenital or acquired thrombophilia Stroke (< 1 month) Elective arthroplasty Hip, pelvis, or leg fracture Acute spinal cord injury (< 1 month) Prophylaxis Regimen Total Risk Factor Score Risk Level Prophylaxis Regimen 0-1 Low Early ambulation 2 Moderate Order ONE of the following: *Sequential Compression Device (SCD) *Heparin 5000 units SQ BID 3-4 Higher Order ONE of the following medications: *Heparin 5000 units SQ TID *Enoxaparin/Lovenox 40 mg SQ daily (WT < 150 kg, CrCl > 30 mL/min) *Enoxaparin/Lovenox 30 mg SQ daily (WT < 150 kg, CrCl > 10-29 mL/min) *Enoxaparin/Lovenox 30 mg SQ BID (WT < 150 kg, CrCl > 30 mL/min) AND/OR *Sequential Compression Device (SCD) 5 or more Highest Order ONE of the following medications: *Heparin 5000 units SQ TID (Preferred with Epidurals) *Enoxaparin/Lovenox 40 mg SQ daily (WT < 150 kg, CrCl > 30 mL/min) *Enoxaparin/Lovenox 30 mg SQ daily (WT < 150 kg, CrCl > 10-29 mL/min) *Enoxaparin/Lovenox 30 mg SQ BID (WT < 150 kg, CrCl > 30 mL/min) AND *Sequential Compression Device (SCD) Assessment and Plan Problem List: (1) Influenza A ICD Code: J10.1 - Influenza due to other identified influenza virus with other respiratory manifestations Status: Acute Plan: Patient will continue with Tamiflu, empiric antibiotics, pulmonary review chest x-ray shows no acute cardiopulmonary disease patient's high risk for pneumonia. He was quite dehydrated on exam follow-up chest x-ray Lactic acid is elevated patient appears to be in distress (2) Hypoxia ICD Code: R09.02 - Hypoxemia Status: Acute Plan: Secondary to influenza, patient with history of tobacco dependency although he has quit 30 years ago Duo nebs as needed (3) Respiratory distress ICD Code: R06.03 - Acute respiratory distress Status: Acute Plan: Likely secondary to influenza, we'll continue close surveillance with bronchodilators, steroids if needed (4) CAD (coronary artery disease) ICD Code: I25.10 - Atherosclerotic heart disease of [place] coronary artery without angina pectoris Status: Acute Plan: Patient also with aortic valve replacement and cardiac bypass and AICD/ pacemaker Continue with telemetry and follow clinically Patient's warfarin has been held due to elevated INR greater than 4. There is no active bleeding We'll continue with metoprolol, lisinopril and Lasix (5) Atrial fibrillation ICD Code: I48.91 - Unspecified atrial fibrillation Plan: Continue with beta trevon, rate is controlled Assessment and Plan Plan of care to be determined by Hospital course Anticoagulated with Coumadin Code Status Full code Discussed Condition With PatientMIKAL M.D. Physician Certification 2 Midnight Certification Type: Admission for Inpatient Services Order for Inpatient Services The services are ordered in accordance with Medicare regulations or non- Medicare payer requirements, as applicable. In the case of services not specified as inpatient-only, they are appropriately provided as inpatient services in accordance with the 2-midnight benchmark. Estimated LOS (days): 3 3 days is the estimated time the patient will need to remain in the hospital, assuming treatment plan goals are met and no additional complications. Post-Hospital Plan: Not yet determined Emely Cabrera MD Apr 24, 2017 16:33
[2017-04-24] MEDS ORDERED: DICLOFENAC 1% TOPICAL PRN (16:45)
[2017-04-24] MEDS: RESP: ALBUTEROL 2.5 MG/IPRATROPIUM 0.5 MG NEB (SCH) NEB (19:34)
[2017-04-24] MEDS: TERAZOSIN HCL 1 MG CAP PO SCH (20:01)
[2017-04-24] MEDS: TERAZOSIN HCL 5 MG CAP PO SCH (20:01)
[2017-04-24] MEDS: OSELTAMIVIR PHOSPHATE 75 MG CAP PO SCH (20:01)
[2017-04-24] MEDS: PRAVASTATIN SOD 40 MG TAB PO SCH (20:02)
[2017-04-24] MEDS: SODIUM CHLORIDE 0.9% FLUSH 10 ML FLUSH IV FLUSH SCH (20:02)
[2017-04-24] MEDS: QUEtiapine FUMARATE 25 MG TAB PO SCH (20:02)
[2017-04-24 20:41] LABS: BILIRUBIN, URINE NEG (NEG); BLOOD, URINE NEG (NEG); GLUCOSE,URINE NEG (NEG); KETONE, URINE TRACE mg/dL (NEG); NITRITE,URINE NEG (NEG); PH, URINE 5.5 (5.0-8.5); URINE LEUKOCYTE ESTERASE NEG (NEG)
[2017-04-24 20:51] LABS: URINE COLOR AMBER (YELLW/STRAW)
[2017-04-24 20:52] LABS: RBC, URINE 0-3 /hpf (0-3); SQUAMOUS EPITHELIAL CELL URINE 0-5 /hpf (0-5); WBC, URINE 0-2 /hpf (0-5)
[2017-04-24] MEDS ORDERED: QUEtiapine FUMARATE 50 MG EXTENDED RELEASE TABLET PO SCH (21:00)
[2017-04-25] VITALS (9 sets, daily range): BP systolic 110–135; BP diastolic 55–87; PULSE 58–68; RESP 14–20; TEMP 97–99.4; O2SAT 94–98
[2017-04-25] MEDS: SODIUM CHLOR 0.9% 1000 ML INJ 1,000 ML IV SCH ×2 (04:14→22:02)
[2017-04-25 06:57] LABS: AUTOMATED NEUTROPHIL # 5.1 TH/MM3 (1.8-7.7); BASOPHIL % 0.3 % (0.0-2.0); EOSINOPHIL # 0.2 TH/MM3 (0-0.4); HEMATOCRIT 38.6 % (39.0-51.0); HEMOGLOBIN 13.1 GM/DL (13.0-17.0); LYMPH % 11.2 % (9.0-44.0); LYMPHOCYTE # 0.8 TH/MM3 (1.0-4.8); MEAN CELL VOLUME 84.6 FL (80.0-100.0); MEAN CORPUSCULAR HEMOGLOBIN 28.6 PG (27.0-34.0); MEAN CORPUSCULAR HGB CONC 33.8 % (32.0-36.0); MEAN PLATELET VOLUME 8.3 FL (7.0-11.0); MONO % 13.5 % (0.0-8.0); PLATELET COUNT 94 TH/MM3 (150-450); RED BLOOD COUNT 4.56 MIL/MM3 (4.50-5.90); RED CELL DISTRIBUTION WIDTH 13.1 % (11.6-17.2); WHITE BLOOD COUNT 7.1 TH/MM3 (4.0-11.0)
[2017-04-25 07:06] LABS: INTERNATIONAL NORMALIZED RATIO 4.2 RATIO; PROTHROMBIN TIME - PATIENT 41.9 SEC (9.8-11.6)
[2017-04-25 07:12] LABS: BICARBONATE 27.5 MEQ/L (21.0-32.0); CALCIUM 7.6 MG/DL (8.5-10.1)
[2017-04-25 07:16] LABS: CREATININE 1.3 MG/DL (0.60-1.30)
[2017-04-25] MEDS: RESP: ALBUTEROL 2.5 MG/IPRATROPIUM 0.5 MG NEB (SCH) NEB ×3 (07:26→20:03)
[2017-04-25] MEDS: MENTHOL LOZENGE BUCCAL PRN ×3 (08:50→22:01)
[2017-04-25] MEDS: OSELTAMIVIR PHOSPHATE 75 MG CAP PO SCH ×2 (08:50→20:28)
[2017-04-25] MEDS: LISINOPRIL 20 MG TAB PO SCH (08:51)
[2017-04-25] MEDS: METOPROLOL SUCCINATE 25 MG EXTENDED RELEASE TAB PO SCH (08:51)
[2017-04-25] MEDS: QUEtiapine FUMARATE 25 MG TAB PO SCH ×2 (08:51→20:28)
[2017-04-25] MEDS: SODIUM CHLORIDE 0.9% FLUSH 10 ML FLUSH IV FLUSH SCH ×2 (08:51→19:38)
--- NOTE | 2017-04-25 09:16 | HHI.PR ---
Subjective Remarks Patient seen and evaluated today in follow-up for influenza with fever and elevated lactic acid. Overall appears improved overnight with IV hydration and antibiotics empirically Objective Vitals Vital Signs Date Time Temp Pulse Resp B/P (MAP) Pulse Ox O2 Delivery O2 Flow Rate FiO2 04/25/17 07:27 96 Nasal Cannula 2.00 04/25/17 04:00 99.4 60 18 118/69 (85) 95 04/25/17 00:00 97.4 58 16 110/55 (73) 96 04/24/17 20:07 68 04/24/17 20:00 99.6 67 18 100/59 (73) 97 04/24/17 20:00 97 Nasal Cannula 4.00 Humidified 04/24/17 19:36 97 Nasal Cannula 4.00 04/24/17 18:30 19 04/24/17 17:14 100.4 86 18 112/50 (70) 93 Nasal Cannula 4.00 04/24/17 17:14 04/24/17 15:52 96 Nasal Cannula 3.00 04/24/17 15:35 92 Nasal Cannula 4.00 04/24/17 15:35 93 Nasal Cannula 4.00 04/24/17 14:46 100.8 65 16 134/64 (87) 90 I/O 04/24/17 04/24/17 04/24/17 04/25/17 04/25/17 04/25/17 07:00 15:00 23:00 07:00 15:00 23:00 Intake Total 460 ml 1763 ml Balance 460 ml 1763 ml Intake Oral 360 ml 420 ml IV Total 100 ml 1343 ml # Voids 2 # Bowel Movements 0 Result Diagram: 04/25/17 0607 04/25/17 0607 Objective Remarks Last Impressions Chest X-Ray 04/24/17 1459 Signed Impressions: Service Date/Time: Monday, April 24, 2017 15:42 - CONCLUSION: No acute cardiopulmonary abnormality is identified. Jeb Ramon MD A/P Problem List: (1) Influenza A ICD Code: J10.1 - Influenza due to other identified influenza virus with other respiratory manifestations Status: Acute Plan: Patient will continue with Tamiflu, empiric antibiotics, pulmonary review chest x-ray shows no acute cardiopulmonary disease however patient's high risk for pneumonia. He was quite dehydrated on exam follow-up repeat chest x-ray Improved lactic acid (2) Hypoxia ICD Code: R09.02 - Hypoxemia Status: Acute Plan: Secondary to influenza, patient with history of tobacco dependency although he has quit 30 years ago Duo nebs as needed (3) Respiratory distress ICD Code: R06.03 - Acute respiratory distress Status: Acute Plan: Improved overnight continue close follow-up with DuoNeb nebs as needed (4) CAD (coronary artery disease) ICD Code: I25.10 - Atherosclerotic heart disease of [place] coronary artery without angina pectoris Status: Acute Plan: Patient also with aortic valve replacement and cardiac bypass and AICD/ pacemaker Continue with telemetry and follow clinically Patient's warfarin has been held due to elevated INR is still greater than 4. There is no active bleeding We'll continue with metoprolol, lisinopril and Lasix (5) Atrial fibrillation ICD Code: I48.91 - Unspecified atrial fibrillation Plan: Continue with beta trevon, rate is controlled Hold warfarin due to elevated INR 4.2 (6) Generalized weakness ICD Code: R53.1 - Weakness Status: Acute Plan: Continue rehabilitation efforts Discharge Planning 2-3 days pending progress Emely Cabrera MD Apr 25, 2017 09:16
--- NOTE | 2017-04-25 15:47 | EKG ---
Date Performed: 04/24/2017 Time Performed: 15:21:26 PTAGE: 76 years EKG: Sinus rhythm WITH FREQUENT VENTRICULAR PREMATURE COMPLEXES WITH OCCASIONAL SUPRAVENTRICULAR PREMATURE COMPLEXES B ORDERLINE LEFT AXIS DEVIATION MODERATE ST DEPRESSION ABNORMAL QRS-T ANGLE ABNORMAL ECG Consider anter olateral ischemia PREVIOUS TRACING : 07/23/2011 14.40 DOCTOR: Ken Sylvester Interpretating Date/Time 04/25/2017 15:45:47
[2017-04-25] MEDS ORDERED: AZITHROMYCIN 250 MG TAB PO SCH (16:00)
[2017-04-25] MEDS: cefTRIAXone INJ 1,000 MG in SODIUM CHLORIDE 0.9% INJ 100 ML IV SCH (16:33)
[2017-04-25] MEDS: TERAZOSIN HCL 1 MG CAP PO SCH (20:28)
[2017-04-25] MEDS: PRAVASTATIN SOD 40 MG TAB PO SCH (20:28)
[2017-04-25] MEDS: TERAZOSIN HCL 5 MG CAP PO SCH (20:28)
[2017-04-26] VITALS: BP 130/87; PULSE 65; RESP 18; TEMP 98.7; O2SAT 96
[2017-04-26 04:00] VITALS: BP 128/90; PULSE 70; RESP 19; TEMP 98.5; O2SAT 95
[2017-04-26] MEDS: RESP: ALBUTEROL 2.5 MG/IPRATROPIUM 0.5 MG NEB (SCH) NEB (07:58)
[2017-04-26 08:00] VITALS: BP 141/75; PULSE 67; RESP 18; TEMP 98.1; O2SAT 93; O2SAT 98
[2017-04-26] MEDS: METOPROLOL SUCCINATE 25 MG EXTENDED RELEASE TAB PO SCH (08:15)
[2017-04-26] MEDS: QUEtiapine FUMARATE 25 MG TAB PO SCH (08:15)
[2017-04-26] MEDS: LISINOPRIL 20 MG TAB PO SCH (08:16)
[2017-04-26] MEDS: SODIUM CHLORIDE 0.9% FLUSH 10 ML FLUSH IV FLUSH SCH (08:16)
[2017-04-26] MEDS: OSELTAMIVIR PHOSPHATE 75 MG CAP PO SCH (08:16)
[2017-04-26 08:17] LABS: INTERNATIONAL NORMALIZED RATIO 3.5 RATIO; PROTHROMBIN TIME - PATIENT 34.9 SEC (9.8-11.6)
--- NOTE | 2017-04-26 09:17 | RADRPT ---
EXAM DATE/TIME: 04/26/2017 08:51 [facility] COMPARISON: No previous studies available for comparison. INDICATIONS : Short of Breath MEDICAL HISTORY : Myocardial infarction. Aneurysm, abdominal. Hypercholesterolemia. Hypertension, Congestive heart fail ure, Coronary artery disease, AFIB, Pneumonia. SURGICAL HISTORY : CABG. Aortic valve replacement, Cardiac cath, Coronary stent, Pacemaker Internal defibrillator ENCOUNTER: Subsequent ACUITY: 3 days PAIN SCORE: 3/10 LOCATION: chest FINDINGS: Moderate cardiomegaly. Prominent tortuosity of the descending thoracic aorta. Prior median sternoto my and valve replacement stopped cardiac pacer leads in place. The lungs are symmetrically aerated. No focal areas of consolidation. There are some mild linear densities in the mid right and lower le ft lung suggesting scarring or atelectasis. Both hemidiaphragms are fairly well delineated. CONCLUSION: No focal infiltrates seen. Chris Rose MD on April 26, 2017 at 9:14 Board Certified Radiologist. This report was verified electronically.
--- NOTE | 2017-04-26 11:37 | HHI.PR ---
Subjective Remarks Patient seen today in follow-up for the influenza with weakness. Doing better. Out of bed to chair. Tolerating current antibiotics difficulty Objective Vitals Vital Signs Date Time Temp Pulse Resp B/P (MAP) Pulse Ox O2 Delivery O2 Flow Rate FiO2 04/26/17 08:00 98 Nasal Cannula 3.00 04/26/17 08:00 98.1 67 18 141/75 (97) 93 04/26/17 04:00 98.5 70 19 128/90 (103) 95 04/26/17 00:00 98.7 65 18 130/87 (101) 96 04/25/17 20:03 98 Nasal Cannula 3.00 04/25/17 20:00 99.2 68 17 132/87 (102) 97 04/25/17 20:00 63 04/25/17 20:00 97 Nasal Cannula 2.00 Humidified 04/25/17 16:00 98.7 66 14 135/71 (92) 97 04/25/17 12:00 98.6 60 18 110/55 (73) 94 04/25/17 11:41 61 I/O 04/25/17 04/25/17 04/25/17 04/26/17 04/26/17 04/26/17 07:00 15:00 23:00 07:00 15:00 23:00 Intake Total 1763 ml 562 ml 1038 ml 415 ml Output Total 800 ml Balance 1763 ml 562 ml 1038 ml -385 ml Intake Oral 420 ml 562 ml 240 ml IV Total 1343 ml 798 ml 415 ml Output Urine Total 800 ml # Voids 2 # Bowel Movements 0 Result Diagram: 04/25/17 0607 04/25/17 0607 Imaging Last Impressions Chest X-Ray 04/26/17 0000 Signed Impressions: Service Date/Time: Wednesday, April 26, 2017 08:51 - CONCLUSION: No focal infiltrates seen. Chris Rose MD Objective Remarks GENERAL: This is a well-nourished, well-developed patient, in no apparent distress. CARDIOVASCULAR: Regular rate and rhythm without murmurs, gallops, or rubs. RESPIRATORY: Clear to auscultation. Breath sounds equal bilaterally. No wheezes , rales, or rhonchi. GASTROINTESTINAL: Abdomen soft, non-tender, nondistended. Normal active bowel sounds MUSCULOSKELETAL: Extremities without clubbing, cyanosis, or edema. NEURO: Alert & Oriented x4 to person, place, time, situation. Moves all ext x4 A/P Problem List: (1) Influenza A ICD Code: J10.1 - Influenza due to other identified influenza virus with other respiratory manifestations Status: Acute Plan: Patient will continue with Tamiflu, empiric antibiotics, pulmonary review chest x-ray shows no acute cardiopulmonary disease however patient's high risk for pneumonia. He was quite dehydrated on exam Repeat chest x-ray negative DC antibiotics (2) Hypoxia ICD Code: R09.02 - Hypoxemia Status: Acute Plan: Secondary to influenza, patient with history of tobacco dependency although he has quit 30 years ago Duo nebs as needed (3) Respiratory distress ICD Code: R06.03 - Acute respiratory distress Status: Acute Plan: Improved overnight continue close follow-up with DuoNeb nebs as needed (4) CAD (coronary artery disease) ICD Code: I25.10 - Atherosclerotic heart disease of [place] coronary artery without angina pectoris Status: Acute Plan: Patient also with aortic valve replacement and cardiac bypass and AICD/ pacemaker Continue with telemetry and follow clinically Patient's warfarin has been held due to elevated INR is 3.5. There is no active bleeding We'll continue with metoprolol, lisinopril and Lasix (5) Atrial fibrillation ICD Code: I48.91 - Unspecified atrial fibrillation Plan: Continue with beta trevon, rate is controlled Hold warfarin due to elevated INR 3.5 (6) Generalized weakness ICD Code: R53.1 - Weakness Status: Acute Plan: Continue rehabilitation efforts Discharge Planning Discharge home pending O2 requirement Emely Carbera MD Apr 26, 2017 11:37
[2017-04-26] MEDS ORDERED: OSEL75 PO (11:53)
--- NOTE | 2017-04-26 11:54 | HHI.DCPOC ---
Discharge Care Plan Diagnosis: (1) Dehydration (2) Influenza A Goals to Promote Your Health * To prevent worsening of your condition and complications * To maintain your health at the optimal level Directions to Meet Your Goals Take your medications as prescribed Follow your dietary instruction Follow activity as directed Keep your appointments as scheduled Take your immunizations and boosters as scheduled If your symptoms worsen call your PCP, if no PCP go to Urgent Care Center or Emergency Room Smoking is Dangerous to Your Health. Avoid second hand smoke Call the 24-hour hour crisis hotline for domestic abuse at Emely Cabrera MD Apr 26, 2017 11:54
[2017-04-26 12:00] VITALS: BP 116/66; PULSE 60; RESP 18; TEMP 97; O2SAT 94
== END 2017-04-26 13:49 | disposition home or self-care (01) | DRG 194 ==
LOC: PHED 14:28 → PHEDA 15:50 → PH3B 16:59
PROVIDERS: ADMIT Hospitalist; ATTEND Hospitalist
DX: J10.1 Influenza due to other identified influenza virus with other respiratory manifestations (principal); E87.2 Acidosis; E86.0 Dehydration; R06.03 Acute respiratory distress; I50.9 Heart failure, unspecified; I11.0 Hypertensive heart disease with heart failure; I48.91 Unspecified atrial fibrillation; M10.9 Gout, unspecified; F31.9 Bipolar disorder, unspecified; E78.5 Hyperlipidemia, unspecified; G47.30 Sleep apnea, unspecified; R09.02 Hypoxemia; R79.1 Abnormal coagulation profile; M19.90 Unspecified osteoarthritis, unspecified site; E78.00 Pure hypercholesterolemia, unspecified; H91.90 Unspecified hearing loss, unspecified ear; K21.9 Gastro-esophageal reflux disease without esophagitis; I25.10 Atherosclerotic heart disease of native coronary artery without angina pectoris; I25.2 Old myocardial infarction; Z95.2 Presence of prosthetic heart valve; Z79.01 Long term (current) use of anticoagulants; Z87.891 Personal history of nicotine dependence; Z95.1 Presence of aortocoronary bypass graft; Z95.5 Presence of coronary angioplasty implant and graft
CPT/HCPCS: 36600; 71045; 71046; 80048; 80053; 81001; 82805; 83605; 83880; 84484; 85025; 85610; 87040; 87804; 93005; 94618; 94640; 94664; 99291; J0456; J0696; J7030; J7050

== ENCOUNTER 2017-12-23 11:06 | Observation (INO) ==
--- NOTE | 2017-12-23 11:38 | ED ---
HPI General Chief Complaint: Arrhythmia / Palpitations Stated Complaint: Heart Complaint/Doctor Sent Time Seen by Provider: 12/23/17 11:22 Source: patient Mode of arrival: ambulatory Limitations: no limitations History of Present Illness HPI narrative: 77-year-old with a history of CAD status post bypass, valve replacement, pacemaker/defibrillator implantation presents to the emergency department for evaluation of a low heart rate that was found on routine exam today. Patient states that [facility] checkup when the physician noticed his heart rate was in the 40s. Patient states that the last couple of weeks he has felt increased short of breath, dizziness, weakness. The history is assisted by his who is present in the room. Patient reports shortness of breath but denies chest pain. He states that he had an episode this week of left arm shooting pain that was intermittent, lasting 20 minutes, resolved with 3 doses of baby aspirin. He states that the dizziness and shortness of breath increases with movement and decreases somewhat with rest. He denies fever, chills, abdominal pain, leg pain. He reports mild lower extremity swelling but states this is normal and he occasionally takes water pills to relieve this. His last stress test was 2 years ago. His last echocardiogram was 1 year ago. Unknown results. Patient states compliance on Coumadin and aspirin therapy daily. Related Data Home Medications Medication Instructions Recorded Confirmed ammonium lactate 240 ml TOPICAL PRN 12/23/17 12/23/17 aspirin [Aspir-81] 81 mg PO DAILY 12/23/17 12/23/17 bisacodyl 5 mg PO DAILY 12/23/17 12/23/17 diazepam 5 mg PO BID 12/23/17 12/23/17 docusate sodium 100 mg PO DAILY 12/23/17 12/23/17 furosemide 40 mg PO BID 12/23/17 12/23/17 lisinopril 40 mg PO DAILY 12/23/17 12/23/17 loratadine 10 mg PO DAILY 12/23/17 12/23/17 metoprolol succinate 25 mg PO DAILY 12/23/17 12/23/17 omeprazole 20 mg PO DAILY 12/23/17 12/23/17 quetiapine 25 mg PO BID 12/23/17 12/23/17 rosuvastatin 10 mg PO DAILY 12/23/17 12/23/17 terazosin 10 mg PO DAILY 12/23/17 12/23/17 tramadol 50 mg PO Q6H 12/23/17 12/23/17 warfarin See Label Instructions .ROUTE 12/23/17 12/23/17 .COMPLEX Allergies Allergy/AdvReac Type Severity Reaction Status Date / Time bacitracin Allergy Severe Rash Unverified 04/24/17 14:56 gramicidin D Allergy Severe Rash Unverified 04/24/17 14:56 hydromorphone Allergy Severe Nausea/Vomi Unverified 04/24/17 14:56 ting kiwi Allergy Severe RASH Unverified 04/24/17 14:56 neomycin Allergy Severe Rash Unverified 04/24/17 14:56 polymyxin B Allergy Severe Rash Unverified 04/24/17 14:56 tetanus toxoid, adsorbed Allergy Severe HIVES Unverified 04/24/17 14:56 Review of Systems ROS: all other systems reviewed are negative PMFSH Social History Social History Substance History: No History of Abuse Second Hand Smoke Exposure: No Smoking Status: Unknown if ever smoked How Often Do You Have a Drink Containing Alcohol: Unable to Obtain Recent Travel in [facility] within the Last 8 Weeks: No Recent Out of Country Travel within the Last 8 Weeks: No Immunization History Tetanus Immunization: Unsure Exam Narrative Exam Narrative: GENERAL: Well-developed, well-nourished in no apparent distress , resting comfortably in bed SKIN: Focused skin assessment warm/dry. HEAD: Atraumatic. Normocephalic. EYES: Pupils equal and round. No scleral icterus. No injection or drainage. ENT: No nasal bleeding or discharge. Mucous membranes pink and moist. NECK: Trachea midline. No JVD. No lymphadenopathy CARDIOVASCULAR: Regular rate and rhythm. No murmur appreciated. No tenderness palpation of the chest wall RESPIRATORY: No accessory muscle use. Clear to auscultation. Breath sounds equal bilaterally. GASTROINTESTINAL: Abdomen soft, non-tender, nondistended. Hepatic and splenic margins not palpable. No CVA tenderness MUSCULOSKELETAL: No obvious deformities. No clubbing. No cyanosis. No tenderness palpation of the calves. Scant left lower extremity swelling. NEUROLOGICAL: Awake and alert. No obvious cranial nerve deficits. Motor grossly within normal limits. Normal speech. PSYCHIATRIC: Appropriate mood and affect; insight and judgment normal. Course Initial Documented Vital Signs Temperature 98.3 F 12/23/17 11:13 Pulse Rate 50 L 12/23/17 11:13 Respiratory Rate 19 12/23/17 11:13 Blood Pressure 155/73 H 12/23/17 11:13 Pulse Oximetry 96 12/23/17 11:13 Last Documented Vital Signs Temperature 98.4 F 12/23/17 19:23 Pulse Rate 62 12/23/17 19:23 Respiratory Rate 16 12/23/17 19:23 Blood Pressure 136/83 12/23/17 19:23 Pulse Oximetry 94 L 12/23/17 19:23 Medical Decision Making MDM Narrative Medical decision making narrative: 77-year-old male with history of CAD status post bypass, pacemaker/defibrillator presents to the emergency department for evaluation of a low heart rate and an episode of chest pain and shortness of breath this week. He states compliance with his medication to include an aspirin daily. Vital signs stable. INR therapeutic, per patient, at 2.0. Troponin negative. BNP 117. BUN/Cr 15/1.38. Urine noncontributory Based off of H&P, I believe patient would benefit from the chest pain center, r/ o ACS. He has significant risk factors to include h/o MS, CABG, HTN. His main complaint is weakness and shortness of breath, worse with activity. Medical Screen Exam Complete: Yes Emergency Medical Condition: Yes Lab Data Result diagrams: 12/23/17 11:40 12/23/17 11:40 Lab Results 12/23/17 12/23/17 12/23/17 Range/Units 11:40 11:40 11:40 WBC 4.8 (4.0-11.0) th/mm3 RBC 5.19 (4.50-5.90) mil/mm3 Hgb 15.1 (13.0-17.0) gm/dL Hct 44.4 (39.0-51.0) % MCV 85.5 (80.0-100.0) fL MCH 29.0 (27.0-34.0) pg MCHC 34.0 (32.0-36.0) % RDW 13.6 (11.6-17.2) % Plt Count 111 L (150-450) th/mm3 MPV 8.2 (7.0-11.0) fL Neut % (Auto) 53.2 (16.0-70.0) % Lymph % (Auto) 31.0 (9.0-44.0) % [place] % (Auto) 9.3 H (0.0-8.0) % Eos % (Auto) 5.0 H (0.0-4.0) % Baso % (Auto) 1.5 (0.0-2.0) % Neut # (Auto) 2.6 (1.8-7.7) th/mm3 Lymph # (Auto) 1.5 (1.0-4.8) th/mm3 [place] # (Auto) 0.4 (0.0-0.9) th/mm3 Eos # (Auto) 0.2 (0.0-0.4) th/mm3 Baso # (Auto) 0.1 (0.0-0.2) th/mm3 WBC Differential . Differential Comment Auto diff final PT 20.2 H (9.8-11.6) sec INR 2.0 Ratio APTT 35.0 H (24.3-30.1) sec Sodium 142 (136-145) meq/L Potassium 4.3 (3.5-5.1) meq/L Chloride 108 H (98-107) meq/L Carbon Dioxide 27.5 (21.0-32.0) meq/L Anion Gap 7 (5-15) meq/L BUN 15 (7-18) mg/dL Creatinine 1.38 H (0.60-1.30) mg/dL Estimated GFR 50 L (>89) mL/min Random Glucose 102 (74-106) mg/dL Calcium 8.5 (8.5-10.1) mg/dL Magnesium 2.1 (1.5-2.5) mg/dL Total Bilirubin 0.7 (0.2-1.0) mg/dL AST 88 H (15-37) U/L ALT 27 (12-78) U/L Alkaline Phosphatase 99 (45-117) U/L Total Creatine Kinase (39-308) U/L Troponin I Less than 0.02 L (0.02-0.05) ng/mL B-Natriuretic Peptide (0-100) pg/mL Total Protein 7.6 (6.4-8.2) g/dL Albumin 3.9 (3.4-5.0) g/dL Urine Color (Yellw/Straw) Urine Clarity (Clear) Urine pH (5.0-8.5) Ur Specific [place] (1.002-1.035) Urine Protein (Neg-Trace) mg/dL Urine Glucose (UA) (Negative) mg/dL Urine Ketones (Negative) mg/dL Urine Occult Blood (Negative) Urine Nitrate (Negative) Urine Bilirubin (Negative) Urine Urobilinogen (Less than 2) mg/dL Ur Leukocyte Esterase (Negative) Urine RBC (0-3) /hpf Urine WBC (0-5) /hpf Urine Mucus (Occasional) /lpf Micro UA Comment Ur Microscopic Review Urine Culture Comments 12/23/17 12/23/17 12/23/17 Range/Units 11:40 13:36 15:00 WBC (4.0-11.0) th/mm3 RBC (4.50-5.90) mil/mm3 Hgb (13.0-17.0) gm/dL Hct (39.0-51.0) % MCV (80.0-100.0) fL MCH (27.0-34.0) pg MCHC (32.0-36.0) % RDW (11.6-17.2) % Plt Count (150-450) th/mm3 MPV (7.0-11.0) fL Neut % (Auto) (16.0-70.0) % Lymph % (Auto) (9.0-44.0) % [place] % (Auto) (0.0-8.0) % Eos % (Auto) (0.0-4.0) % Baso % (Auto) (0.0-2.0) % Neut # (Auto) (1.8-7.7) th/mm3 Lymph # (Auto) (1.0-4.8) th/mm3 [place] # (Auto) (0.0-0.9) th/mm3 Eos # (Auto) (0.0-0.4) th/mm3 Baso # (Auto) (0.0-0.2) th/mm3 WBC Differential Differential Comment PT (9.8-11.6) sec INR Ratio APTT (24.3-30.1) sec Sodium (136-145) meq/L Potassium (3.5-5.1) meq/L Chloride (98-107) meq/L Carbon Dioxide (21.0-32.0) meq/L Anion Gap (5-15) meq/L BUN (7-18) mg/dL Creatinine (0.60-1.30) mg/dL Estimated GFR (>89) mL/min Random Glucose (74-106) mg/dL Calcium (8.5-10.1) mg/dL Magnesium (1.5-2.5) mg/dL Total Bilirubin (0.2-1.0) mg/dL AST (15-37) U/L ALT (12-78) U/L Alkaline Phosphatase (45-117) U/L Total Creatine Kinase 137 (39-308) U/L Troponin I Less than 0.02 L (0.02-0.05) ng/mL B-Natriuretic Peptide 117 H (0-100) pg/mL Total Protein (6.4-8.2) g/dL Albumin (3.4-5.0) g/dL Urine Color Yellow (Yellw/Straw) Urine Clarity Clear (Clear) Urine pH 5.0 (5.0-8.5) Ur Specific [place] 1.012 (1.002-1.035) Urine Protein Negative (Neg-Trace) mg/dL Urine Glucose (UA) Negative (Negative) mg/dL Urine Ketones Negative (Negative) mg/dL Urine Occult Blood Negative (Negative) Urine Nitrate Negative (Negative) Urine Bilirubin Negative (Negative) Urine Urobilinogen Less than 2 (Less than 2) mg/dL Ur Leukocyte Esterase Negative (Negative) Urine RBC 2 (0-3) /hpf Urine WBC 1 (0-5) /hpf Urine Mucus Few H (Occasional) /lpf Micro UA Comment Culture not ind Ur Microscopic Review Not Reportable Urine Culture Comments Culture not ind Imaging Data Radiologist's impression: Chest X-Ray 12/23/17 11:33 CONCLUSION: 1. Minimal patchy left lung base airspace disease, likely atelectasis. 2. Otherwise, no significant interval change. Discharge Plan Discharge Disposition Patient Disposition: 30 Still Patient Discharge Condition Condition: Stable Discharge Details Diagnosis: Shortness of breath Physicians Team ED Provider: Lj Bear ED Midlevel Provider: Tala Mckeon Primary Care Provider: [facility] 's Attending Provider: Uli Freeman Status ED Status: Left Department Discharge Information Discharge Date/Time: 12/23/17 15:32
--- NOTE | 2017-12-23 12:15 | XR ---
EXAM DATE: 12/23/2017 11:33 AM EDT AGE/SEX: 77 years / Male INDICATIONS: Chest pain since this morning. CLINICAL DATA: This is the patient's initial encounter. Patient reports that signs and symptoms have been present for 1 day and indicates a pain score of 3/10. MEDICAL/SURGICAL HISTORY: . Myocardial infarction. Aneurysm, abdominal. Hypercholesterolemia. H ypertension, Congestive heart failure, Coronary artery disease, AFIB. Pacemaker. CABG. Aortic valve replacement, Cardiac cath, Coronary stent, Internal defibrillator. COMPARISON: [facility], CHEST PA & LAT, 04/26/2017. . FINDINGS: Minimal patchy airspace disease at the left lung base. Stable postsurgical features of prior median s ternotomy. AICD device in place. The cardiomediastinal contours are stable. Osseous structures are i ntact. CONCLUSION: 1. Minimal patchy left lung base airspace disease, likely atelectasis. 2. Otherwise, no significant interval change. Electronically signed by: King Amor MD 12/23/2017 12:14 PM EDT
[2017-12-23 12:19] LABS: Baso # (Auto) 0.1 th/mm3 (0.0-0.2); Baso % (Auto) 1.5 % (0.0-2.0); Eos # (Auto) 0.2 th/mm3 (0.0-0.4); Hematocrit 44.4 % (39.0-51.0); Hemoglobin 15.1 gm/dL (13.0-17.0); Lymph # (Auto) 1.5 th/mm3 (1.0-4.8); Mean Corpuscular Volume 85.5 fL (80.0-100.0); Mean Platelet Volume 8.2 fL (7.0-11.0); Mono # (Auto) 0.4 th/mm3 (0.0-0.9); Mono % (Auto) 9.3 % (0.0-8.0); Neut # (Auto) 2.6 th/mm3 (1.8-7.7); Neut % (Auto) 53.2 % (16.0-70.0); Platelet Count 111 th/mm3 (150-450); Red Blood Count 5.19 mil/mm3 (4.50-5.90); Red Cell Distribution Width 13.6 % (11.6-17.2); White Blood Count 4.8 th/mm3 (4.0-11.0)
[2017-12-23 12:28] LABS: Prothrombin Time 20.2 sec (9.8-11.6)
[2017-12-23 12:41] LABS: Albumin 3.9 g/dL (3.4-5.0); Anion Gap 7 meq/L (5-15); Aspartate Aminotransferase 88 U/L (15-37); Blood Urea Nitrogen 15 mg/dL (7-18); Calcium 8.5 mg/dL (8.5-10.1); Carbon Dioxide 27.5 meq/L (21.0-32.0); Chloride 108 meq/L (98-107); Glomerular Filtration Rate 50 mL/min (>89); Glucose,Random 102 mg/dL (74-106); Magnesium 2.1 mg/dL (1.5-2.5); Potassium 4.3 meq/L (3.5-5.1); Sodium 142 meq/L (136-145)
[2017-12-23 12:42] LABS: Alanine Aminotransferase 27 U/L (12-78)
[2017-12-23 12:45] LABS: Alkaline Phosphatase 99 U/L (45-117); Total Protein 7.6 g/dL (6.4-8.2)
[2017-12-23] MEDS ORDERED: Sodium Chlor 0.9% Inj 500 ML IV.SIG SCH (13:00)
[2017-12-23 14:08] LABS: Bilirubin,Urine Negative (Negative); Clarity,Urine Clear (Clear); Color,Urine Yellow (Yellw/Straw); Glucose,Urine (UA) Negative (Negative); Leukocyte Esterase,Urine Negative (Negative); Mucus,Urine Few /lpf (Occasional); Nitrite,Urine Negative (Negative); Specific Gravity,Urine 1.012 (1.002-1.035)
[2017-12-23] MEDS ORDERED: Acetaminophen 500 MG Tablet PO PRN (15:35)
--- NOTE | 2017-12-23 15:35 | P.HPCA ---
History of Present Illness Primary Care Physician: [facility] Chief Complaint: Arrhythmia History of Present Illness: 77-year-old male with history of CABG, aortic valve replacement, congestive heart failure, and atrial fibrillation presents emergency room for further evaluation after visit to his primary care provider. Apparently during his routine exam and EKG was completed noting a heart rate to be 40s. This EKG has been reviewed and had multiple PVCs however atrial pacer lira identified. Denies chest pain although endorses increasing exertional shortness of breath with accompanying dizziness over the last 2-3 weeks. PCP recommended for evaluation and sent him to ER. Past cardiac testing Lexiscan completed 2 years ago reported to be normal. 08/02/2008 Cardiac catheterization (Dr Kramer) Recommendations it is anticipated that his obtuse marginal branch, which actually appears to be significantly diseased and probably the culprit artery should be approached with a PCI in 3-4 days pending the patient's course with a staged procedure involving PCI of the LAD in 1 or 2 weeks pending his response to above. 08/06/2008 cardiac catheterization (Dr. Kramer) Conclusions: The patient demonstrates significant dilatation of the ascending aorta with mild aortic stenosis and mild to moderate aortic insufficiency, suspected bicuspid aortic valve. This will be discussed with cardiovascular surgery and further imaging will be done to evaluate the patient's transverse and descending aorta. CABG x2 and aortic valve replaced in [facility] 2008 Social history No coronary artery disease, hypertension, and hyperlipidemia. No known diabetes. Former smoker quit 35 years ago. No alcohol or recreational drug use. . Endorses sedentary lifestyle. - Diagnosis (1) Arrhythmia Review of Systems All other systems reviewed negative except as stated in [facility] - History History Provided By: Patient, Joint Finisher / EMT - Medical History Medical History: Medical History (Last Updated 12/24/17 @ 17:54 by MICKIE Parker) Atrial fibrillation Cardiac defibrillator in place Congestive heart failure Coronary artery disease Myocardial infarction Pacemaker - Surgical History Surgical History: Surgical History (Last Updated 12/24/17 @ 17:54 by MICKIE Parker) H/O aortic valve replacement S/P CABG x 2 - Social History I have reviewed the patient's Social History: Yes - Tobacco History Second Hand Smoke Exposure: No Tobacco Use In Past 30 Days: No Smoking Status: Former smoker (Quit 35 years ago.) - Alcohol History How Often Do You Have a Drink Containing Alcohol: Never - Substance Use History Substance History: No History of Abuse - Travel History History of Recent Travel: No Recent Travel in the [place] Within the Last 8 Weeks: No Recent Travel Out of the Country Within the Last 8 Weeks: No - Immunization History Tetanus Immunization: Unsure Medications and Allergies Active Medications: Active Medications Sodium Chloride (Ns Inj) 500 mls @ 0 mls/hr IV.SIG BOLUS STEPHANIA Sodium Chloride (Ns Flush) 2 ml IV.FLUSH UNSCH PRN PRN Reason: FLUSH AFTER USING IV ACCESS Sodium Chloride (Ns Flush) 2 ml IV.FLUSH BID STEPHANIA Sodium Chloride (Ns Flush) 2 ml IV.FLUSH PRN PRN PRN Reason: FLUSH AFTER USING IV ACCESS Allergies Allergy/AdvReac Type Severity Reaction Status Date / Time bacitracin Allergy Severe Rash Unverified 04/24/17 14:56 gramicidin D Allergy Severe Rash Unverified 04/24/17 14:56 hydromorphone Allergy Severe Nausea/Vomi Unverified 04/24/17 14:56 ting kiwi Allergy Severe RASH Unverified 04/24/17 14:56 neomycin Allergy Severe Rash Unverified 04/24/17 14:56 polymyxin B Allergy Severe Rash Unverified 04/24/17 14:56 tetanus toxoid, adsorbed Allergy Severe HIVES Unverified 04/24/17 14:56 Home Medications Medication Instructions Recorded Confirmed Type ammonium lactate 240 ml TOPICAL PRN 12/23/17 12/23/17 History aspirin [Aspir-81] 81 mg PO DAILY 12/23/17 12/23/17 History bisacodyl 5 mg PO DAILY 12/23/17 12/23/17 History diazepam 5 mg PO BID 12/23/17 12/23/17 History docusate sodium 100 mg PO DAILY 12/23/17 12/23/17 History furosemide 40 mg PO BID 12/23/17 12/23/17 History lisinopril 40 mg PO DAILY 12/23/17 12/23/17 History loratadine 10 mg PO DAILY 12/23/17 12/23/17 History omeprazole 20 mg PO DAILY 12/23/17 12/23/17 History quetiapine 25 mg PO BID 12/23/17 12/23/17 History rosuvastatin 10 mg PO DAILY 12/23/17 12/23/17 History terazosin 10 mg PO DAILY 12/23/17 12/23/17 History tramadol 50 mg PO Q6H 12/23/17 12/23/17 History warfarin See Label Instructions .ROUTE 12/23/17 12/23/17 History .COMPLEX Exam Vital signs: Vital Signs 12/23/17 11:13 12/23/17 12:09 Temperature 98.3 F Pulse Rate 50 L 59 L Respiratory Rate 19 18 Blood Pressure 155/73 H 150/74 H Pulse Oximetry 96 94 L Intake & Output 12/22/17 12/23/17 12/23/17 18:59 06:59 18:59 Weight 111.13 kg Narrative: GENERAL: Alert WN, WD, NAD, pleasant, obese, elderly male who appears chronically ill HEAD: NC, AC NECK: Supple, no masses, trachea midline CV: RRR, without murmur, rub, gallop, no JVD, S1-S2 no S3-S4. No carotid bruits. Chest wall nontender to palpation. RESP: Clear lungs throughout bilateral, no crackles, wheeze, rhonchi, symmetrical chest rise, nonlabored, able to speak in full sentences ABD: Soft, NT, ND, no masses, positive bowel tones EXT: Pulses +2x4, +1 pitting bilateral lower edema MS: Normal tone x4 extremities, nontender, no obvious deformities, full range of motion NEURO: CN II through CN XII grossly intact, motor strength 5/5 PSYCH: A+O x3, pleasant affect, appropriate speech, mood, insight and judgment, hard of hearing SKIN: Normal turgor, normal texture, thin skin, multiple areas of bruising upper arms, likely from Coumadin use Results 12/23/17 11:40 12/23/17 11:40 Cardiac Enzymes 12/23/17 12/23/17 Range/Units 11:40 11:40 AST 88 H (15-37) U/L Troponin I Less than 0.02 L (0.02-0.05) ng/mL B-Natriuretic Peptide 117 H (0-100) pg/mL Coagulation 12/23/17 12/23/17 Range/Units 11:40 11:40 PT 20.2 H (9.8-11.6) sec APTT 35.0 H (24.3-30.1) sec B-Natriuretic Peptide 117 H (0-100) pg/mL CBC 12/23/17 Range/Units 11:40 WBC 4.8 (4.0-11.0) th/mm3 RBC 5.19 (4.50-5.90) mil/mm3 Hgb 15.1 (13.0-17.0) gm/dL Hct 44.4 (39.0-51.0) % Plt Count 111 L (150-450) th/mm3 Neut # (Auto) 2.6 (1.8-7.7) th/mm3 Lymph # (Auto) 1.5 (1.0-4.8) th/mm3 [place] # (Auto) 0.4 (0.0-0.9) th/mm3 Eos # (Auto) 0.2 (0.0-0.4) th/mm3 Baso # (Auto) 0.1 (0.0-0.2) th/mm3 Comprehensive Metabolic Panel 12/23/17 Range/Units 11:40 Sodium 142 (136-145) meq/L Potassium 4.3 (3.5-5.1) meq/L Chloride 108 H (98-107) meq/L Carbon Dioxide 27.5 (21.0-32.0) meq/L BUN 15 (7-18) mg/dL Creatinine 1.38 H (0.60-1.30) mg/dL Calcium 8.5 (8.5-10.1) mg/dL AST 88 H (15-37) U/L ALT 27 (12-78) U/L Alkaline Phosphatase 99 (45-117) U/L Total Protein 7.6 (6.4-8.2) g/dL Albumin 3.9 (3.4-5.0) g/dL Intake and Output 12/23/17 12/23/17 12/23/17 06:59 14:59 22:59 Other: Weight 111.13 kg Patient Weight 12/24/17 06:59 Weight 111.13 kg - Imaging and Cardiology Imaging: Impressions Chest X-Ray 12/23/17 11:33 CONCLUSION: 1. Minimal patchy left lung base airspace disease, likely atelectasis. 2. Otherwise, no significant interval change. EKG interpretations - EKG EKG results cardiology: sinus rhythm (Atrial paced, frequent PVC) Caprini VTE Risk Assessment Caprini VTE Risk Assessment: Moderate/High Risk (score >= 2) Caprini Risk Assessment Model: Point Value = 1 Point Value = 2 Point Value = 3 Point Value = 5 Age 41-60 Minor surgery BMI > 25 kg/m2 Swollen legs Varicose veins or History of unexplained or recurrent spontaneous Oral contraceptives or hormone replacement Sepsis (< 1 month) Serious lung disease, including pneumonia (< 1 month) Abnormal pulmonary function Acute myocardial infarction Congestive heart failure (< 1 month) History of inflammatory bowel disease Medical patient at bed rest Age 61-74 Arthroscopic surgery Major open surgery (> 45 min) Laparoscopic surgery (> 45 min) Malignancy Confined to bed (> 72 hours) Immobilizing plaster cast Central venous access Age >= 75 History of VTE Family history of VTE Factor V Leiden Prothrombin [id number] Lupus anticoagulant Anticardiolipin antibodies Elevated serum homocysteine Heparin-induced thrombocytopenia Other congenital or acquired thrombophilia Stroke (< 1 month) Elective arthroplasty Hip, pelvis, or leg fracture Acute spinal cord injury (< 1 month) Prophylaxis Regimen: Total Risk Factor Score Risk Level Prophylaxis Regimen 0-1 Low Early ambulation 2 Moderate Order ONE of the following: *Sequential Compression Device (SCD) *Heparin 5000 units SQ BID 3-4 Higher Order ONE of the following medications: *Heparin 5000 units SQ TID *Enoxaparin/Lovenox 40 mg SQ daily (WT < 150 kg, CrCl > 30 mL/min) *Enoxaparin/Lovenox 30 mg SQ daily (WT < 150 kg, CrCl > 10-29 mL/min) *Enoxaparin/Lovenox 30 mg SQ BID (WT < 150 kg, CrCl > 30 mL/min) AND/OR *Sequential Compression Device (SCD) 5 or more Highest Order ONE of the following medications: *Heparin 5000 units SQ TID (Preferred with Epidurals) *Enoxaparin/Lovenox 40 mg SQ daily (WT < 150 kg, CrCl > 30 mL/min) *Enoxaparin/Lovenox 30 mg SQ daily (WT < 150 kg, CrCl > 10-29 mL/min) *Enoxaparin/Lovenox 30 mg SQ BID (WT < 150 kg, CrCl > 30 mL/min) AND *Sequential Compression Device (SCD) Assessment and Plan - Assessment (1) Arrhythmia Code(s): I49.9 - Cardiac arrhythmia, unspecified Status: Acute Plan: Admitted chest pain center. Evaluated by Dr. Uli Freeman. Proceed to rule out ACS with 3 sets of EKGs, cardiac enzymes, and monitored on telemetry overnight. Lexiscan planned for in a.m. if unremarkable, plans are to discharge home with follow-up with primary care provider.
[2017-12-23 15:43] LABS: Creatine Kinase 137 U/L (39-308)
[2017-12-23 20:48] LABS: Creatine Kinase 87 U/L (39-308)
[2017-12-23] MEDS: diazePAM 5 MG Tablet PO SCH (21:08)
[2017-12-24 08:21] VITALS: BP 169/83; RESP 18; TEMP 98; O2SAT 95
[2017-12-24] MEDS: diazePAM 5 MG Tablet PO SCH (08:23)
--- NOTE | 2017-12-24 08:43 | P.PNCA ---
Subjective Interval history: No complaints overnight. Medications and Allergies Active Medications: Active Medications Acetaminophen (Tylenol) 500 mg PO Q4H PRN PRN Reason: HEADACHE Last Admin: 12/23/17 20:44 Dose: 500 mg Atorvastatin Calcium (Lipitor) 20 mg PO DAILY [facility] [place] Last Admin: 12/24/17 08:25 Dose: Not Given Bisacodyl (Dulcolax Ec) 5 mg PO DAILY [facility] [place] Last Admin: 12/24/17 08:24 Dose: 5 mg Diazepam (Valium) 5 mg PO BID [facility] [place] Last Admin: 12/24/17 08:23 Dose: Not Given Sodium Chloride (Ns Inj) 500 mls @ 0 mls/hr IV.SIG BOLUS [facility] [place] Lisinopril (Prinivil) 40 mg PO DAILY [facility] [place] Last Admin: 12/24/17 08:22 Dose: 40 mg Loratadine (Claritin) 10 mg PO DAILY [facility] [place] Last Admin: 12/24/17 08:24 Dose: 10 mg Metoprolol Succinate (Toprol Xl) 25 mg PO DAILY [facility] [place] Last Admin: 12/24/17 08:23 Dose: Not Given Nitroglycerin (Nitrostat Sl) 0.4 mg SL Q5M PRN PRN Reason: CHEST PAIN Ondansetron HCl (Zofran Inj) 4 mg IV.PUSH Q6H PRN PRN Reason: NAUSEA Pantoprazole Sodium (Protonix) 20 mg PO DAILY [facility] [place] Last Admin: 12/24/17 08:22 Dose: 20 mg Sodium Chloride (Ns Flush) 2 ml IV.FLUSH UNSCH PRN PRN Reason: FLUSH AFTER USING IV ACCESS Sodium Chloride (Ns Flush) 2 ml IV.FLUSH BID [facility] [place] Last Admin: 12/24/17 08:25 Dose: 2 ml Sodium Chloride (Ns Flush) 2 ml IV.FLUSH PRN PRN PRN Reason: FLUSH AFTER USING IV ACCESS Allergies Allergy/AdvReac Type Severity Reaction Status Date / Time bacitracin Allergy Severe Rash Unverified 04/24/17 14:56 gramicidin D Allergy Severe Rash Unverified 04/24/17 14:56 hydromorphone Allergy Severe Nausea/Vomi Unverified 04/24/17 14:56 ting kiwi Allergy Severe RASH Unverified 04/24/17 14:56 neomycin Allergy Severe Rash Unverified 04/24/17 14:56 polymyxin B Allergy Severe Rash Unverified 04/24/17 14:56 tetanus toxoid, adsorbed Allergy Severe HIVES Unverified 04/24/17 14:56 Home Medications Medication Instructions Recorded Confirmed Type ammonium lactate 240 ml TOPICAL PRN 12/23/17 12/23/17 History aspirin [Aspir-81] 81 mg PO DAILY 12/23/17 12/23/17 History bisacodyl 5 mg PO DAILY 12/23/17 12/23/17 History diazepam 5 mg PO BID 12/23/17 12/23/17 History docusate sodium 100 mg PO DAILY 12/23/17 12/23/17 History furosemide 40 mg PO BID 12/23/17 12/23/17 History lisinopril 40 mg PO DAILY 12/23/17 12/23/17 History loratadine 10 mg PO DAILY 12/23/17 12/23/17 History omeprazole 20 mg PO DAILY 12/23/17 12/23/17 History quetiapine 25 mg PO BID 12/23/17 12/23/17 History rosuvastatin 10 mg PO DAILY 12/23/17 12/23/17 History terazosin 10 mg PO DAILY 12/23/17 12/23/17 History tramadol 50 mg PO Q6H 12/23/17 12/23/17 History warfarin See Label Instructions .ROUTE 12/23/17 12/23/17 History .COMPLEX Physical Exam Vital signs: Vital Signs 12/23/17 11:13 12/23/17 12:09 12/23/17 16:00 Temperature 98.3 F 97.8 F Pulse Rate 50 L 59 L 66 Respiratory Rate 19 18 18 Blood Pressure 155/73 H 150/74 H 175/79 H Pulse Oximetry 96 94 L 96 12/23/17 19:23 12/23/17 23:35 12/24/17 04:00 Temperature 98.4 F 98.6 F 98.2 F Pulse Rate 62 54 L 53 L Respiratory Rate 16 16 16 Blood Pressure 136/83 135/74 138/80 Pulse Oximetry 94 L 94 L 96 12/24/17 08:00 Temperature 98 F Pulse Rate 73 Respiratory Rate 18 Blood Pressure 169/83 H Pulse Oximetry 95 Intake & Output 12/23/17 12/24/17 12/24/17 18:59 06:59 18:59 Intake Total 240 / 240 Balance 240 / 240 Weight 111.13 kg 111.13 kg Intake: Oral 240 / 240 Other: # Voids 2 - Constitutional no acute distress - Routine HEENT Exam Head: Present: normocephalic, atraumatic - Routine Respiratory Exam Absent: rhonchi, stridor, wheezes - Routine Cardiovascular Exam Present: RRR, S1, S2. Absent: murmur, gallop, rubs - Routine Abdominal Exam Present: soft, normoactive bowel sounds. Absent: tenderness, distended Results 12/23/17 11:40 12/23/17 11:40 Cardiac Enzymes 12/23/17 12/23/17 12/23/17 Range/Units 11:40 11:40 15:00 AST 88 H (15-37) U/L Troponin I Less than 0.02 L Less than 0.02 L (0.02-0.05) ng/mL B-Natriuretic Peptide 117 H (0-100) pg/mL 12/23/17 Range/Units 19:30 AST (15-37) U/L Troponin I Less than 0.02 L (0.02-0.05) ng/mL B-Natriuretic Peptide (0-100) pg/mL Coagulation 12/23/17 12/23/17 Range/Units 11:40 11:40 PT 20.2 H (9.8-11.6) sec APTT 35.0 H (24.3-30.1) sec B-Natriuretic Peptide 117 H (0-100) pg/mL CBC 12/23/17 Range/Units 11:40 WBC 4.8 (4.0-11.0) th/mm3 RBC 5.19 (4.50-5.90) mil/mm3 Hgb 15.1 (13.0-17.0) gm/dL Hct 44.4 (39.0-51.0) % Plt Count 111 L (150-450) th/mm3 Neut # (Auto) 2.6 (1.8-7.7) th/mm3 Lymph # (Auto) 1.5 (1.0-4.8) th/mm3 Perkins # (Auto) 0.4 (0.0-0.9) th/mm3 Eos # (Auto) 0.2 (0.0-0.4) th/mm3 Baso # (Auto) 0.1 (0.0-0.2) th/mm3 Comprehensive Metabolic Panel 12/23/17 Range/Units 11:40 Sodium 142 (136-145) meq/L Potassium 4.3 (3.5-5.1) meq/L Chloride 108 H (98-107) meq/L Carbon Dioxide 27.5 (21.0-32.0) meq/L BUN 15 (7-18) mg/dL Creatinine 1.38 H (0.60-1.30) mg/dL Calcium 8.5 (8.5-10.1) mg/dL AST 88 H (15-37) U/L ALT 27 (12-78) U/L Alkaline Phosphatase 99 (45-117) U/L Total Protein 7.6 (6.4-8.2) g/dL Albumin 3.9 (3.4-5.0) g/dL Intake and Output 12/23/17 12/24/17 12/24/17 22:59 06:59 14:59 Intake Total 240 / 240 Balance 240 / 240 Intake: Oral 240 / 240 Other: # Voids 2 Weight 111.13 kg - Imaging and Cardiology Imaging: Impressions Chest X-Ray 12/23/17 11:33 CONCLUSION: 1. Minimal patchy left lung base airspace disease, likely atelectasis. 2. Otherwise, no significant interval change. Assessment and Plan - Assessment (1) Arrhythmia Code(s): I49.9 - Cardiac arrhythmia, unspecified Status: Acute Plan: ACS ruled out overnight. Proceed with planned Lexiscan this morning.
[2017-12-24] MEDS ORDERED: Pantoprazole Sodium 20 MG DR Tablet PO SCH (09:00)
[2017-12-24] MEDS ORDERED: Loratadine 10 MG Tablet PO SCH (09:00)
[2017-12-24] MEDS ORDERED: Lisinopril 20 MG Tablet PO SCH (09:00)
[2017-12-24] MEDS ORDERED: Regadenoson Inj 0.4 MG/5 ML Syringe IV.PUSH ONE (11:43)
--- NOTE | 2017-12-24 13:08 | NM ---
EXAM DATE: 12/24/2017 10:42 AM EDT AGE/SEX: 77 years / Male INDICATIONS:Angina. . Dyspnea and bradycardia. CLINICAL DATA: This is the patient's initial encounter. Patient reports that signs and symptoms have been present for 1 day and indicates a pain score of 0/10. MEDICAL/SURGICAL HISTORY: Cardiovascular disease. CABG. Pacemaker. COMPARISON: No prior exams available for comparison. DOSE: 11.0 mCi Tc 99m Myoview at rest 35.0 mCi [id number] at stress 0.4 mg Lexiscan STRESS SYMPTOMS: Headache and weird feeling. EJECTION FRACTION: 36 % TECHNIQUE: The patient underwent pharmacologic stress with infusion of prescribed dose. Continuous ECG tracing was monitored during stress. Gated SPECT imaging was performed after stress and conventi onal SPECT imaging was performed at rest. The examination was performed on a SPECT/CT scanner, both attenuation and non-corrected datasets were reviewed. FINDINGS: Distribution: The maximum perfused segment at stress is in the septal wall. Perfusion Study: There is decreased perfusion to the anterior and inferior tovar, fixed in nature. There is a mild reversible perfusion defect to the lateral wall identified. Gated Study: Global hypo kinesis The ejection fraction is calculated at 36%. RISK CATEGORY: High (>3% Annual Morality Rate) CONCLUSION: 1. Global hypokinesis with ejection fraction of 36%. 2. Fixed and reversible perfusion defects are noted as above. Reversible defect involves the lateral wall. Electronically signed by: John Boledn MD 12/24/2017 1:06 PM EDT
[2017-12-24 14:43] VITALS: PULSE 77
--- NOTE | 2017-12-24 15:38 | TR ---
Date Performed: 12/24/2017 Time Performed: 11:33:55 DOCTOR: Uli Freeman DRUG LIST: CLINICAL HISTORY: ANGINA REASON FOR TEST: Angina REASON FOR ENDING: OBSERVATION: CONCLUSION: COMMENTS: Lexiscan stress test was performed under standard four minute protocol. Radionuclide was injected one minute prior to ending the test. No electrocardiographic abormalities were present t o suggest ischemia. Nuclear imaging and interpretation are pending.
--- NOTE | 2017-12-24 21:08 | ECG ---
Date Performed: 12/23/2017 Time Performed: 11:48:51 PTAGE: 77 years EKG: ELECTRONIC ATRIAL PACEMAKER MODERATE ST DEPRESSION ABNORMAL QRS-T ANGLE Compared to previou s tracing, ventricular ectopy is no longer present. Previous tracing was most likely atrial paced ABN ORMAL ECG NO PREVIOUS TRACING DOCTOR: Uli Freeman Interpretating Date/Time 12/24/2017 21:07:32
--- NOTE | 2017-12-24 21:10 | ECG ---
Date Performed: 12/23/2017 Time Performed: 15:11:08 PTAGE: 77 years EKG: ELECTRONIC ATRIAL PACEMAKER MINIMAL ST DEPRESSION ABNORMAL QRS-T ANGLE COUPLET OF PVCS PLUS ONE ADDITIONAL PVC SEEN Compared to previous tracing, PVCs are new ABNORMAL ECG PREVIOUS TRACING : 04/24/2017 15.21 DOCTOR: Uli Freeman Interpretating Date/Time 12/24/2017 21:08:15
--- NOTE | 2017-12-24 21:10 | ECG ---
Date Performed: 12/23/2017 Time Performed: 19:29:21 PTAGE: 77 years EKG: ELECTRONIC ATRIAL PACEMAKER MINIMAL ST DEPRESSION ABNORMAL QRS-T ANGLE PVCs are frequent an d uniform Compared to previous tracing, PVCs are seen but no couplets seen ABNORMAL ECG PREVIOUS TRACING : 12/23/2017 15.11 DOCTOR: Uli Freeman Interpretating Date/Time 12/24/2017 21:09:02
== END 2017-12-24 16:05 | disposition home or self-care (01) ==
LOC: NEPC 11:06 → NEDA 11:06 → NEPFCDU 15:52

== ENCOUNTER 2018-01-31 17:54 | Inpatient (IN) ==
[2018-01-31 18:26] LABS: Baso % (Auto) 0.1 % (0.0-2.0); Eos # (Auto) 0.1 th/mm3 (0.0-0.4); Eos % (Auto) 1.6 % (0.0-4.0); Hematocrit 44.8 % (39.0-51.0); Hemoglobin 14.7 gm/dL (13.0-17.0); Lymph # (Auto) 1.5 th/mm3 (1.0-4.8); Lymph % (Auto) 17.7 % (9.0-44.0); Mean Corpuscular HGB Conc 32.8 % (32.0-36.0); Mean Corpuscular Hemoglobin 28.7 pg (27.0-34.0); Mean Corpuscular Volume 87.6 fL (80.0-100.0); Mean Platelet Volume 8.2 fL (7.0-11.0); Mono % (Auto) 11.2 % (0.0-8.0); Neut % (Auto) 69.4 % (16.0-70.0); Platelet Count 94 th/mm3 (150-450); Red Blood Count 5.11 mil/mm3 (4.50-5.90); Red Cell Distribution Width 14.3 % (11.6-17.2); White Blood Count 8.6 th/mm3 (4.0-11.0)
--- NOTE | 2018-01-31 18:49 | XR ---
EXAM DATE: 01/31/2018 6:44 PM EST AGE/SEX: 77 years / Male INDICATIONS: Short of breath. CLINICAL DATA: This is the patient's initial encounter. Patient reports that signs and symptoms have been present for 1 day and indicates a pain score of 0/10. MEDICAL/SURGICAL HISTORY: . Myocardial infarction. Aneurysm, abdominal. Hypercholesterolemia. H ypertension, Congestive heart failure, Coronary artery disease, AFIB . Pacemaker. CABG. Aortic valve replacement, Cardiac cath, Coronary stent, Internal defibrillator. COMPARISON: C, CHEST 1V SINGLE AP, 12/23/2017. . FINDINGS: Pacemaker left chest. Sternal wires from previous median sternotomy. Cardiomegaly without infiltrate or failure. No pneumothorax. CONCLUSION: Pacer, compensated cardiomegaly, stable from 12/2017 Electronically signed by: Heri Fairchild MD 01/31/2018 6:48 PM EST
[2018-01-31 18:50] LABS: Activated Partial Thrombo Time 39.4 sec (23.4-31.7); INR 2.4 Ratio; Prothrombin Time 24.4 sec (9.8-11.6)
[2018-01-31 18:52] LABS: D-Dimer 3.83 mg/L FEU (0.00-0.50)
[2018-01-31 18:54] LABS: Albumin 3.5 g/dL (3.4-5.0); Anion Gap 7 meq/L (5-15); Aspartate Aminotransferase 68 U/L (15-37); Blood Urea Nitrogen 33 mg/dL (7-18); Calcium 7.8 mg/dL (8.5-10.1); Carbon Dioxide 24.5 meq/L (21.0-32.0); Chloride 114 meq/L (98-107); Glomerular Filtration Rate 32 mL/min (>89); Glucose,Random 114 mg/dL (74-106); Magnesium 1.7 mg/dL (1.5-2.5); Potassium 4.4 meq/L (3.5-5.1); Sodium 145 meq/L (136-145)
[2018-01-31 18:59] LABS: Alanine Aminotransferase 20 U/L (12-78); Alkaline Phosphatase 70 U/L (45-117)
--- NOTE | 2018-01-31 19:01 | ED ---
HPI General Chief Complaint: Shortness of Breath/Dyspnea Stated Complaint: sob/evac Time Seen by Provider: 01/31/18 17:59 Source: patient and EMS Mode of arrival: EMS History of Present Illness Mr Dangelo is a 77 year old male who presents to the ED via EMS for progressively worsening SOB for several weeks. Today he was watching TV in a chair and could not get up due to the SOB and called EMS. He states the SOB does not increase when lying flat. He denies chest pain, fever, syncope, abdominal pain, cough, or pain upon inspiration. His PMH is significant for an LA, pacemaker implantation, and CHF. He is scheduled for a CABG on 02/16/18. The patient does take Warfarin and furosemide, but he states he only takes the furosemide when his ankles swell. The patient is a former smoker but quit 35 years ago. He drinks 1-2 alcoholic drinks per month and denies drug use. Related Data Home Medications Medication Instructions Recorded Confirmed ammonium lactate 240 ml TOPICAL PRN 12/23/17 01/31/18 aspirin [Aspir-81] 81 mg PO DAILY 12/23/17 01/31/18 bisacodyl 5 mg PO DAILY 12/23/17 01/31/18 diazepam 5 mg PO BID 12/23/17 01/31/18 docusate sodium 100 mg PO DAILY 12/23/17 01/31/18 furosemide 40 mg PO DAILY 12/23/17 01/31/18 lisinopril 40 mg PO DAILY 12/23/17 01/31/18 loratadine 10 mg PO DAILY 12/23/17 01/31/18 omeprazole 20 mg PO DAILY 12/23/17 01/31/18 quetiapine 25 mg PO BID 12/23/17 01/31/18 rosuvastatin 10 mg PO DAILY 12/23/17 01/31/18 terazosin 10 mg PO DAILY 12/23/17 01/31/18 tramadol 50 mg PO Q6H 12/23/17 01/31/18 warfarin See Label Instructions .ROUTE 12/23/17 01/31/18 .COMPLEX Previous Rx's Medication Instructions Recorded metoprolol succinate 50 mg PO DAILY #30 tab 12/24/17 Allergies Allergy/AdvReac Type Severity Reaction Status Date / Time bacitracin Allergy Severe Rash Verified 01/31/18 18:06 gramicidin D Allergy Severe Rash Verified 01/31/18 18:06 hydromorphone Allergy Severe Nausea/Vomi Verified 01/31/18 18:06 ting kiwi Allergy Severe RASH Verified 01/31/18 18:06 neomycin Allergy Severe Rash Verified 01/31/18 18:06 polymyxin B Allergy Severe Rash Verified 01/31/18 18:06 tetanus toxoid, adsorbed Allergy Severe HIVES Verified 01/31/18 18:06 Review of Systems ROS: all other systems reviewed are negative [facility] Medical History Medical History Atrial fibrillation (Acute) Cardiac defibrillator in place (Acute) Congestive heart failure (Acute) Coronary artery disease (Acute) Myocardial infarction (Acute) Pacemaker (Acute) Surgical History Surgical History H/O aortic valve replacement (Acute) S/P CABG x 2 (Acute) Social History Social History Substance History: No History of Abuse Second Hand Smoke Exposure: Yes Smoking Status: Former smoker Tobacco Type: Cigarettes How Often Do You Have a Drink Containing Alcohol: Never Hx Recent Travel: No Recent Travel in [facility] within the Last 8 Weeks: No Recent Out of Country Travel within the Last 8 Weeks: No Immunization History Tetanus Immunization: Unsure Exam Narrative Exam Narrative: GENERAL: Patient is a well developed well nourished male in moderate respiratory distress. SKIN: Warm and dry. HEAD: Atraumatic. Normocephalic. EYES: Pupils equal and round. No scleral icterus. No injection or drainage. ENT: No nasal bleeding or discharge. Mucous membranes pink and moist. NECK: Trachea midline. No JVD. CARDIOVASCULAR: Tachycardic. Irregular rhythm- PVCs on EKG. RESPIRATORY: No accessory muscle use. Expiratory wheezing upon auscultation of the upper lobes bilaterally. Breath sounds equal bilaterally. GASTROINTESTINAL: Abdomen soft, non-tender, nondistended. Hepatic and splenic margins not palpable. MUSCULOSKELETAL: Extremities without clubbing, cyanosis, or edema. No obvious deformities. NEUROLOGICAL: Awake and alert. No obvious cranial nerve deficits. Motor grossly within normal limits. Five out of 5 muscle strength in the arms and legs. Normal speech. PSYCHIATRIC: Appropriate mood and affect; insight and judgment normal. Course Initial Documented Vital Signs Pulse Rate 97 H 01/31/18 17:56 Respiratory Rate 18 01/31/18 17:56 Blood Pressure 117/58 L 01/31/18 17:56 Pulse Oximetry 92 L 01/31/18 17:56 Last Documented Vital Signs Temperature 97.6 F 02/03/18 12:00 Pulse Rate 60 02/03/18 12:00 Respiratory Rate 18 02/03/18 12:00 Blood Pressure 118/64 02/03/18 12:00 Pulse Oximetry 97 02/03/18 12:00 Medical Decision Making ROSE Attestation ROSE supervised visit: Yes Attestation: I, Dr. Alberto, have reviewed the advance practice practitioner's documentation and am in agreement, met with the patient face to face, made the diagnosis, and the medical decision making was done by me. *My assessment and Findings: Dyspnea MDM Narrative Medical decision making narrative: 77 yo male here for SOB. Patient was properly examined and was found to have signs and symptoms consistent appears to be shortness of breath. Unclear etiology at this time. Labs and imaging were ordered. Patient peer EVAC was initially hypo-tensive and was given fluid. Patient also appears to have a positive d-dimer. His INR is 2.4 we will cannot completely rule out PE as patient has new symptoms. VQ scan was ordered. Case was discussed with my attending who agrees that admission should be done. VQ scan shows intermediate possible PE. Patient with O2 3 L and satting 93-94, without it SOB, my attending recommends admission. ANNABEL was paged and Dr Ruiz agrees to admission. Medical Screen Exam Complete: Yes Emergency Medical Condition: Yes Differential Diagnosis Differential Diagnosis: CHF vs COPD vs dyspnea vs PE vs atypical chest pain vs unstable angina Medical Records Medical records reviewed: Yes I reviewed the patient's medical records. Lab Data Lab results reviewed: Yes I reviewed the patient's lab results. Result diagrams: 02/02/18 04:44 02/02/18 04:44 Lab Results 01/31/18 01/31/18 01/31/18 Range/Units 18:12 18:12 18:12 WBC 8.6 (4.0-11.0) th/mm3 RBC 5.11 (4.50-5.90) mil/mm3 Hgb 14.7 (13.0-17.0) gm/dL Hct 44.8 (39.0-51.0) % MCV 87.6 (80.0-100.0) fL MCH 28.7 (27.0-34.0) pg MCHC 32.8 (32.0-36.0) % RDW 14.3 (11.6-17.2) % Plt Count 94 L (150-450) th/mm3 MPV 8.2 (7.0-11.0) fL Prelim Diff (Auto) Slide review pending Neut % (Auto) 69.4 (16.0-70.0) % Lymph % (Auto) 17.7 (9.0-44.0) % Stephenson % (Auto) 11.2 H (0.0-8.0) % Eos % (Auto) 1.6 (0.0-4.0) % Baso % (Auto) 0.1 (0.0-2.0) % Neut # (Auto) 6.0 (1.8-7.7) th/mm3 Lymph # (Auto) 1.5 (1.0-4.8) th/mm3 Stephenson # (Auto) 1.0 H (0.0-0.9) th/mm3 Eos # (Auto) 0.1 (0.0-0.4) th/mm3 Baso # (Auto) 0.0 (0.0-0.2) th/mm3 WBC Differential . Diff Scan Differential Comment . PT 24.4 H (9.8-11.6) sec INR 2.4 Ratio APTT 39.4 H (23.4-31.7) sec D-Dimer Quant (PE/DVT) 3.83 H (0.00-0.50) mg/L FEU Sodium 145 (136-145) meq/L Potassium 4.4 (3.5-5.1) meq/L Chloride 114 H (98-107) meq/L Carbon Dioxide 24.5 (21.0-32.0) meq/L Anion Gap 7 (5-15) meq/L BUN 33 H (7-18) mg/dL Creatinine 2.01 H (0.60-1.30) mg/dL Estimated GFR 32 L (>89) mL/min Random Glucose 114 H (74-106) mg/dL Calcium 7.8 L (8.5-10.1) mg/dL Magnesium 1.7 (1.5-2.5) mg/dL Total Bilirubin 1.0 (0.2-1.0) mg/dL AST 68 H (15-37) U/L ALT 20 (12-78) U/L Alkaline Phosphatase 70 (45-117) U/L Total Creatine Kinase 75 (39-308) U/L Troponin I Less than 0.02 L (0.02-0.05) ng/mL B-Natriuretic Peptide (0-100) pg/mL Total Protein 7.0 (6.4-8.2) g/dL Albumin 3.5 (3.4-5.0) g/dL 01/31/18 01/31/18 02/01/18 Range/Units 18:12 18:12 03:05 WBC (4.0-11.0) th/mm3 RBC (4.50-5.90) mil/mm3 Hgb (13.0-17.0) gm/dL Hct (39.0-51.0) % MCV (80.0-100.0) fL MCH (27.0-34.0) pg MCHC (32.0-36.0) % RDW (11.6-17.2) % Plt Count (150-450) th/mm3 MPV (7.0-11.0) fL Prelim Diff (Auto) Neut % (Auto) (16.0-70.0) % Lymph % (Auto) (9.0-44.0) % Stephenson % (Auto) (0.0-8.0) % Eos % (Auto) (0.0-4.0) % Baso % (Auto) (0.0-2.0) % Neut # (Auto) (1.8-7.7) th/mm3 Lymph # (Auto) (1.0-4.8) th/mm3 Stephenson # (Auto) (0.0-0.9) th/mm3 Eos # (Auto) (0.0-0.4) th/mm3 Baso # (Auto) (0.0-0.2) th/mm3 WBC Differential Diff Scan Differential Comment PT (9.8-11.6) sec INR Ratio APTT (23.4-31.7) sec D-Dimer Quant (PE/DVT) Cancelled (0.00-0.50) mg/L FEU Sodium 144 (136-145) meq/L Potassium 4.9 (3.5-5.1) meq/L Chloride 117 H (98-107) meq/L Carbon Dioxide 23.5 (21.0-32.0) meq/L Anion Gap 4 L (5-15) meq/L BUN 40 H (7-18) mg/dL Creatinine 1.80 H (0.60-1.30) mg/dL Estimated GFR 37 L (>89) mL/min Random Glucose 153 H (74-106) mg/dL Calcium 7.5 L (8.5-10.1) mg/dL Magnesium (1.5-2.5) mg/dL Total Bilirubin (0.2-1.0) mg/dL AST (15-37) U/L ALT (12-78) U/L Alkaline Phosphatase (45-117) U/L Total Creatine Kinase (39-308) U/L Troponin I (0.02-0.05) ng/mL B-Natriuretic Peptide 85 (0-100) pg/mL Total Protein (6.4-8.2) g/dL Albumin (3.4-5.0) g/dL 02/01/18 02/01/18 02/02/18 Range/Units 16:30 22:45 04:44 WBC (4.0-11.0) th/mm3 RBC (4.50-5.90) mil/mm3 Hgb (13.0-17.0) gm/dL Hct (39.0-51.0) % MCV (80.0-100.0) fL MCH (27.0-34.0) pg MCHC (32.0-36.0) % RDW (11.6-17.2) % Plt Count (150-450) th/mm3 MPV (7.0-11.0) fL Prelim Diff (Auto) Neut % (Auto) (16.0-70.0) % Lymph % (Auto) (9.0-44.0) % Stephenson % (Auto) (0.0-8.0) % Eos % (Auto) (0.0-4.0) % Baso % (Auto) (0.0-2.0) % Neut # (Auto) (1.8-7.7) th/mm3 Lymph # (Auto) (1.0-4.8) th/mm3 Stephenson # (Auto) (0.0-0.9) th/mm3 Eos # (Auto) (0.0-0.4) th/mm3 Baso # (Auto) (0.0-0.2) th/mm3 WBC Differential Diff Scan Differential Comment PT (9.8-11.6) sec INR Ratio APTT (23.4-31.7) sec D-Dimer Quant (PE/DVT) (0.00-0.50) mg/L FEU Sodium (136-145) meq/L Potassium (3.5-5.1) meq/L Chloride (98-107) meq/L Carbon Dioxide (21.0-32.0) meq/L Anion Gap (5-15) meq/L BUN (7-18) mg/dL Creatinine (0.60-1.30) mg/dL Estimated GFR (>89) mL/min Random Glucose (74-106) mg/dL Calcium (8.5-10.1) mg/dL Magnesium 1.9 (1.5-2.5) mg/dL Total Bilirubin (0.2-1.0) mg/dL AST (15-37) U/L ALT (12-78) U/L Alkaline Phosphatase (45-117) U/L Total Creatine Kinase (39-308) U/L Troponin I Less than 0.02 L Less than 0.02 L Less than 0.02 L (0.02-0.05) ng/mL B-Natriuretic Peptide (0-100) pg/mL Total Protein (6.4-8.2) g/dL Albumin (3.4-5.0) g/dL 02/02/18 02/02/18 02/02/18 Range/Units 04:44 04:44 09:27 WBC 7.4 (4.0-11.0) th/mm3 RBC 4.80 (4.50-5.90) mil/mm3 Hgb 14.0 (13.0-17.0) gm/dL Hct 42.0 (39.0-51.0) % MCV 87.4 (80.0-100.0) fL MCH 29.2 (27.0-34.0) pg MCHC 33.4 (32.0-36.0) % RDW 14.4 (11.6-17.2) % Plt Count 96 L (150-450) th/mm3 MPV 8.0 (7.0-11.0) fL Prelim Diff (Auto) Slide review pending Neut % (Auto) 78.0 H (16.0-70.0) % Lymph % (Auto) 11.5 (9.0-44.0) % Stephenson % (Auto) 7.2 (0.0-8.0) % Eos % (Auto) 3.2 (0.0-4.0) % Baso % (Auto) 0.1 (0.0-2.0) % Neut # (Auto) 5.8 (1.8-7.7) th/mm3 Lymph # (Auto) 0.9 L (1.0-4.8) th/mm3 Stephenson # (Auto) 0.5 (0.0-0.9) th/mm3 Eos # (Auto) 0.2 (0.0-0.4) th/mm3 Baso # (Auto) 0.0 (0.0-0.2) th/mm3 WBC Differential . Diff Scan Auto diff confirmed Differential Comment . PT 27.3 H (9.8-11.6) sec INR 2.7 Ratio APTT (23.4-31.7) sec D-Dimer Quant (PE/DVT) (0.00-0.50) mg/L FEU Sodium 145 (136-145) meq/L Potassium 4.7 (3.5-5.1) meq/L Chloride 117 H (98-107) meq/L Carbon Dioxide 25.3 (21.0-32.0) meq/L Anion Gap 3 L (5-15) meq/L BUN 36 H (7-18) mg/dL Creatinine 1.37 H (0.60-1.30) mg/dL Estimated GFR 50 L (>89) mL/min Random Glucose 119 H (74-106) mg/dL Calcium 7.7 L (8.5-10.1) mg/dL Magnesium (1.5-2.5) mg/dL Total Bilirubin (0.2-1.0) mg/dL AST (15-37) U/L ALT (12-78) U/L Alkaline Phosphatase (45-117) U/L Total Creatine Kinase (39-308) U/L Troponin I (0.02-0.05) ng/mL B-Natriuretic Peptide (0-100) pg/mL Total Protein (6.4-8.2) g/dL Albumin (3.4-5.0) g/dL 02/03/18 Range/Units 06:51 WBC (4.0-11.0) th/mm3 RBC (4.50-5.90) mil/mm3 Hgb (13.0-17.0) gm/dL Hct (39.0-51.0) % MCV (80.0-100.0) fL MCH (27.0-34.0) pg MCHC (32.0-36.0) % RDW (11.6-17.2) % Plt Count (150-450) th/mm3 MPV (7.0-11.0) fL Prelim Diff (Auto) Neut % (Auto) (16.0-70.0) % Lymph % (Auto) (9.0-44.0) % Stephenson % (Auto) (0.0-8.0) % Eos % (Auto) (0.0-4.0) % Baso % (Auto) (0.0-2.0) % Neut # (Auto) (1.8-7.7) th/mm3 Lymph # (Auto) (1.0-4.8) th/mm3 Stephenson # (Auto) (0.0-0.9) th/mm3 Eos # (Auto) (0.0-0.4) th/mm3 Baso # (Auto) (0.0-0.2) th/mm3 WBC Differential Diff Scan Differential Comment PT 21.9 H (9.8-11.6) sec INR 2.2 Ratio APTT (23.4-31.7) sec D-Dimer Quant (PE/DVT) (0.00-0.50) mg/L FEU Sodium (136-145) meq/L Potassium (3.5-5.1) meq/L Chloride (98-107) meq/L Carbon Dioxide (21.0-32.0) meq/L Anion Gap (5-15) meq/L BUN (7-18) mg/dL Creatinine (0.60-1.30) mg/dL Estimated GFR (>89) mL/min Random Glucose (74-106) mg/dL Calcium (8.5-10.1) mg/dL Magnesium (1.5-2.5) mg/dL Total Bilirubin (0.2-1.0) mg/dL AST (15-37) U/L ALT (12-78) U/L Alkaline Phosphatase (45-117) U/L Total Creatine Kinase (39-308) U/L Troponin I (0.02-0.05) ng/mL B-Natriuretic Peptide (0-100) pg/mL Total Protein (6.4-8.2) g/dL Albumin (3.4-5.0) g/dL Imaging Data Attestation: I personally reviewed and interpreted this imaging study as follows : Radiologist's impression: Chest X-Ray 01/31/18 17:59 CONCLUSION: Pacer, compensated cardiomegaly, stable from 12/2017 Pulmonary Perfusion Imaging 01/31/18 19:18 CONCLUSION: 1. Intermediate probability for pulmonary embolism. Chest CT 01/31/18 21:11 CONCLUSION: 1. Dependent opacity in the lungs is probably atelectasis. No definite evidence for pneumonia. No pleural or pericardial effusion. No adenopathy. 2. Postoperative changes of median sternotomy with aortic valve replacement and pacer lead placement. Cardiomegaly. Chest CTA 02/01/18 00:00 CONCLUSION: 1. No pulmonary embolus identified. 2. Cardiomegaly. 3. Atherosclerotic plaquing in the coronary arteries. 4. The patient is post valvular replacement. 5. 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 6. Minimal atelectatic changes within the lung bases. ECG Data Attestation: I personally reviewed and interpreted this ECG as follows: Interpretation: EKG shows bigeminy, no obvious ST elevation ischemia. Read by me and attenging. Discharge Plan Discharge Disposition Patient Disposition: 30 Still Patient Discharge Condition Condition: Stable Discharge Order Discharge Orders: Discharge Order (Routine); Ordered 02/02/18 Ordered By: Valentin Todd Discharge Details Anticipated Discharge Date: 02/02/18 Discharge Comment: OK to discharge home once home oxygen has been set up Diagnosis: Acute dyspnea, Pulmonary emboli Physicians Team ED Provider: Preston Alberto ED Midlevel Provider: Layton Wong Primary Care Provider: [facility] Attending Provider: Valentin Todd Status ED Status: Left Department Discharge Information Discharge Date/Time: 02/01/18 09:35
[2018-01-31 19:07] LABS: Creatine Kinase 75 U/L (39-308)
[2018-01-31] MEDS ORDERED: Sodium Chlor 0.9% Inj 500 ML IV.SIG SCH (20:00)
[2018-01-31] MEDS ORDERED: MethylPREDNISolone Sod Succinate Inj 125 MG/2 ML Vial IV.PUSH ONE (21:02)
--- NOTE | 2018-01-31 22:40 | NM ---
EXAM DATE: 01/31/2018 10:28 PM EST AGE/SEX: 77 years / Male INDICATIONS: Shortness of breath, hypoxia. CLINICAL DATA: This is the patient's initial encounter. Patient reports that signs and symptoms have been present for 1 day and indicates a pain score of 0/10. MEDICAL/SURGICAL HISTORY: Congestive heart failure. Myocardial infarction. A-fib, Coronary art raquel disease. Pacemaker. Defibrillator. Aortic valve replacement, CABG x2. COMPARISON: No prior exams available for comparison. DOSE: 1.57 mCi Tc99m DTPA aerosol 8.7 mCi Tc99m MAA IV TECHNIQUE: Following five minutes of tidal breathing of DTPA aerosol, planar images of the lungs wer e performed in eight projections. The patient was then injected with MAA, and eight-view perfusion s can was performed. FINDINGS: There is a homogeneous pattern of aerosol delivery to the periphery of both lungs. No focal ventilat ory defects are seen. The ventilation is better than the perfusion. There is a small subsegmental ventilation perfusion mis match laterally in the left lung intermediate probability for pulmonary embolism. CONCLUSION: 1. Intermediate probability for pulmonary embolism. Electronically signed by: Heri Fairchild MD 01/31/2018 10:39 PM EST
--- NOTE | 2018-02-01 00:37 | CT ---
EXAM DATE: 01/31/2018 11:56 PM EST AGE/SEX: 77 years / Male INDICATIONS: Shortness of breath. Evaluate for pneumonia. CLINICAL DATA: This is the patient's initial encounter. Patient reports that signs and symptoms have been present for 1 day and indicates a pain score of 0/10. MEDICAL/SURGICAL HISTORY: Cardiovascular disease. Hypertension. CABG. Pacemaker. RADIATION DOSE: 17.79 CTDI (mGy) COMPARISON: No prior exams available for comparison. TECHNIQUE: Multiple contiguous axial images were obtained through the chest without contrast. Image s were obtained in suspended respiration using multiple row detector helical technique. Using automa jordan exposure control and adjustment of the mA and/or kV according to patient size, radiation dose was kept as low as reasonably achievable to obtain optimal diagnostic quality images. DICOM format imag e data is available electronically for review and comparison. FINDINGS: There is some dependent opacity in the lungs, most characteristic of atelectasis. No significant pleu ral or pericardial effusion. No adenopathy. Pacer leads are present in right atrium and right ventricle. Previous aortic valve replacement. Aorta is ectatic and tortuous. Moderate coronary calcifications. CONCLUSION: 1. Dependent opacity in the lungs is probably atelectasis. No definite evidence for pneumonia. No pl eural or pericardial effusion. No adenopathy. 2. Postoperative changes of median sternotomy with aortic valve replacement and pacer lead placement . Cardiomegaly. Electronically signed by: Uriel Doyle MD 02/01/2018 12:35 AM EST
[2018-02-01] MEDS ORDERED: Bisacodyl 10 MG Supp RECTAL PRN (02:56)
[2018-02-01] MEDS ORDERED: Acetaminophen 325 MG Tablet PO PRN (02:56)
--- NOTE | 2018-02-01 03:11 | P.HP ---
History of Present Illness Service: [facility] Primary Care Physician: [facility] History of Present Illness: An 7-year-old male with a past medical history significant for coronary disease , atrial fibrillation anticoagulation on Coumadin, hypertension, hyperlipidemia , BPH and CHF presents to the emergency department for the evaluation of weakness and shortness of breath. The patient reports that he began feeling weak with accompanying shortness of breath several weeks ago. Today he was reportedly watching TV in a chair and could not get up secondary to his weakness and shortness of breath. He called EMS and was sent to the emergency department for further evaluation. He denies any chest pain. No abdominal pain. No nausea/vomiting/diarrhea. No fever/chills. No focal neurologic deficits. Inpatient Certification: I certify that the inpatient services were ordered in accordance with Medicare regulations governing the order. This includes certification that hospital inpatient services are reasonable and necessary and in the case of services not specified as inpatient-only under 42 CFR 419.22(n), that they are appropriately provided as inpatient services in accordance to with the 2-midnight benchmark under 43 CFR 412.3(e) Estimated Total Length of Stay (Days): 2 Plans for Post Hospital Care: Not yet determined Review of Systems All other systems reviewed negative except as stated in HPI [facility] - History History Provided By: Patient - Medical History Medical History: Medical History (Last Updated 02/01/18 @ 03:02 by Elo Ruiz MD) BPH (benign prostatic hyperplasia) Hyperlipidemia Hypertension Atrial fibrillation Cardiac defibrillator in place Congestive heart failure Coronary artery disease Myocardial infarction Pacemaker - Surgical History Surgical History: Surgical History (Last Updated 02/01/18 @ 03:03 by Elo Ruiz MD) History of appendectomy History of cardiac radiofrequency ablation History of partial colectomy History of shoulder surgery H/O aortic valve replacement S/P CABG x 2 - Family History Family History: Family History (Last Updated 02/01/18 @ 03:03 by Elo Ruiz MD) Other Coronary artery disease - Tobacco History Second Hand Smoke Exposure: No Smoking Status: Former smoker - Alcohol History How Often Do You Have a Drink Containing Alcohol: 2 to 4 times a month - Substance Use History Substance History: No History of Abuse - Travel History History of Recent Travel: No Recent Travel in the [place] Within the Last 8 Weeks: No Recent Travel Out of the Country Within the Last 8 Weeks: No - Immunization History Tetanus Immunization: Unsure Medications and Allergies Allergies Allergy/AdvReac Type Severity Reaction Status Date / Time bacitracin Allergy Severe Rash Verified 01/31/18 18:06 gramicidin D Allergy Severe Rash Verified 01/31/18 18:06 hydromorphone Allergy Severe Nausea/Vomi Verified 01/31/18 18:06 ting kiwi Allergy Severe RASH Verified 01/31/18 18:06 neomycin Allergy Severe Rash Verified 01/31/18 18:06 polymyxin B Allergy Severe Rash Verified 01/31/18 18:06 tetanus toxoid, adsorbed Allergy Severe HIVES Verified 01/31/18 18:06 Home Medications Medication Instructions Recorded Confirmed Type ammonium lactate 240 ml TOPICAL PRN 12/23/17 01/31/18 History aspirin [Aspir-81] 81 mg PO DAILY 12/23/17 01/31/18 History bisacodyl 5 mg PO DAILY 12/23/17 01/31/18 History diazepam 5 mg PO BID 12/23/17 01/31/18 History docusate sodium 100 mg PO DAILY 12/23/17 01/31/18 History furosemide 40 mg PO DAILY 12/23/17 01/31/18 History lisinopril 40 mg PO DAILY 12/23/17 01/31/18 History loratadine 10 mg PO DAILY 12/23/17 01/31/18 History omeprazole 20 mg PO DAILY 12/23/17 01/31/18 History quetiapine 25 mg PO BID 12/23/17 01/31/18 History rosuvastatin 10 mg PO DAILY 12/23/17 01/31/18 History terazosin 10 mg PO DAILY 12/23/17 01/31/18 History tramadol 50 mg PO Q6H 12/23/17 01/31/18 History warfarin See Label Instructions .ROUTE 12/23/17 01/31/18 History .COMPLEX Exam Vital signs: Vital Signs 01/31/18 17:56 01/31/18 18:02 01/31/18 19:38 Pulse Rate 97 H 97 H Respiratory Rate 18 18 Blood Pressure 117/58 L Pulse Oximetry 92 L 95 01/31/18 20:38 Pulse Rate 84 Respiratory Rate 18 Blood Pressure 105/52 L Pulse Oximetry 93 L Intake & Output 01/31/18 01/31/18 02/01/18 06:59 18:59 06:59 Intake Total 500 / 500 Balance 500 / 500 Weight 108.862 kg Intake: IV 500 / 500 NS Inj 500 ML @ 1000 mls/hr IV. 500 / 500 SIG BOLUS [facility] Rx#:[id number] Narrative: Gen.: No acute distress Head: Normocephalic. Atraumatic. EENT: Pupils equal round and reactive to light. Nose without drainage. Airway intact. Throat without injection. Cardiovascular: Regular rate and rhythm. No murmurs, rubs or gallops. Respiratory: Lungs clear to auscultation bilaterally. No wheezes or rhonchi. Abdomen: Soft, nontender, nondistended. No peritoneal signs. Musculoskeletal: No gross deformities. No edema. Skin: No obvious rashes or erythema. Neuro: Sensory and motor grossly intact. Cranial nerves II through XII grossly intact. Results - Labs CBC & Chem 7: 01/31/18 18:12 02/01/18 03:05 Labs: Laboratory Results - last 24 hr 01/31/18 01/31/18 01/31/18 18:12 18:12 18:12 WBC 8.6 RBC 5.11 Hgb 14.7 Hct 44.8 MCV 87.6 MCH 28.7 MCHC 32.8 RDW 14.3 Plt Count 94 L MPV 8.2 Prelim Diff (Auto) Slide review pending Neut % (Auto) 69.4 Lymph % (Auto) 17.7 [place] % (Auto) 11.2 H Eos % (Auto) 1.6 Baso % (Auto) 0.1 Neut # (Auto) 6.0 Lymph # (Auto) 1.5 [place] # (Auto) 1.0 H Eos # (Auto) 0.1 Baso # (Auto) 0.0 WBC Differential . Differential Comment . PT 24.4 H INR 2.4 APTT 39.4 H D-Dimer Quant (PE/DVT) 3.83 H Sodium 145 Potassium 4.4 Chloride 114 H Carbon Dioxide 24.5 Anion Gap 7 BUN 33 H Creatinine 2.01 H Estimated GFR 32 L Random Glucose 114 H Calcium 7.8 L Magnesium 1.7 Total Bilirubin 1.0 AST 68 H ALT 20 Alkaline Phosphatase 70 Total Creatine Kinase 75 Troponin I Less than 0.02 L B-Natriuretic Peptide Total Protein 7.0 Albumin 3.5 01/31/18 01/31/18 18:12 18:12 WBC RBC Hgb Hct MCV MCH MCHC RDW Plt Count MPV Prelim Diff (Auto) Neut % (Auto) Lymph % (Auto) [place] % (Auto) Eos % (Auto) Baso % (Auto) Neut # (Auto) Lymph # (Auto) [place] # (Auto) Eos # (Auto) Baso # (Auto) WBC Differential Differential Comment PT INR APTT D-Dimer Quant (PE/DVT) Cancelled Sodium Potassium Chloride Carbon Dioxide Anion Gap BUN Creatinine Estimated GFR Random Glucose Calcium Magnesium Total Bilirubin AST ALT Alkaline Phosphatase Total Creatine Kinase Troponin I B-Natriuretic Peptide 85 Total Protein Albumin - Imaging Impressions Chest X-Ray 01/31/18 17:59 CONCLUSION: Pacer, compensated cardiomegaly, stable from 12/2017 Pulmonary Perfusion Imaging 01/31/18 19:18 CONCLUSION: 1. Intermediate probability for pulmonary embolism. Chest CT 01/31/18 21:11 CONCLUSION: 1. Dependent opacity in the lungs is probably atelectasis. No definite evidence for pneumonia. No pleural or pericardial effusion. No adenopathy. 2. Postoperative changes of median sternotomy with aortic valve replacement and pacer lead placement. Cardiomegaly. Caprini VTE Risk Assessment Caprini VTE Risk Assessment: Moderate/High Risk (score >= 2) Caprini Risk Assessment Model: Point Value = 1 Point Value = 2 Point Value = 3 Point Value = 5 Age 41-60 Minor surgery BMI > 25 kg/m2 Swollen legs Varicose veins or History of unexplained or recurrent spontaneous Oral contraceptives or hormone replacement Sepsis (< 1 month) Serious lung disease, including pneumonia (< 1 month) Abnormal pulmonary function Acute myocardial infarction Congestive heart failure (< 1 month) History of inflammatory bowel disease Medical patient at bed rest Age 61-74 Arthroscopic surgery Major open surgery (> 45 min) Laparoscopic surgery (> 45 min) Malignancy Confined to bed (> 72 hours) Immobilizing plaster cast Central venous access Age >= 75 History of VTE Family history of VTE Factor V Leiden Prothrombin [id number] Lupus anticoagulant Anticardiolipin antibodies Elevated serum homocysteine Heparin-induced thrombocytopenia Other congenital or acquired thrombophilia Stroke (< 1 month) Elective arthroplasty Hip, pelvis, or leg fracture Acute spinal cord injury (< 1 month) Prophylaxis Regimen: Total Risk Factor Score Risk Level Prophylaxis Regimen 0-1 Low Early ambulation 2 Moderate Order ONE of the following: *Sequential Compression Device (SCD) *Heparin 5000 units SQ BID 3-4 Higher Order ONE of the following medications: *Heparin 5000 units SQ TID *Enoxaparin/Lovenox 40 mg SQ daily (WT < 150 kg, CrCl > 30 mL/min) *Enoxaparin/Lovenox 30 mg SQ daily (WT < 150 kg, CrCl > 10-29 mL/min) *Enoxaparin/Lovenox 30 mg SQ BID (WT < 150 kg, CrCl > 30 mL/min) AND/OR *Sequential Compression Device (SCD) 5 or more Highest Order ONE of the following medications: *Heparin 5000 units SQ TID (Preferred with Epidurals) *Enoxaparin/Lovenox 40 mg SQ daily (WT < 150 kg, CrCl > 30 mL/min) *Enoxaparin/Lovenox 30 mg SQ daily (WT < 150 kg, CrCl > 10-29 mL/min) *Enoxaparin/Lovenox 30 mg SQ BID (WT < 150 kg, CrCl > 30 mL/min) AND *Sequential Compression Device (SCD) Assessment and Plan - Plan Assessment/plan: 1. Shortness of breath/weakness VQ scan showed intermediate probability for pulmonary embolus. CTA pending as repeat Cr 1.8. If positive for PE, ECHO, heparin ggt, pulm consult and heme consult as patient therapeutic on Coumadin. BNP/Trop wnl. Chest CT showed atelectasis without definite pneumonia Patient anticoagulated on Coumadin 2. Atrial fibrillation EKG shows bigeminy, no signs of ischemia, personally reviewed Continue home medications 3. CAD/hypertension/hyperlipidemia/CHF Holding home Lasix and lisinopril secondary to acute renal failure Continue all other home medications 4. Acute kidney injury Creatinine 2.01, baseline 1.5. Repeat Cr 1.80 Gentle IV fluid hydration given history of CHF Monitor renal function FEN N.p.o. Electrolytes: Urine replete as needed NS at 100 cc/hour Heparin
[2018-02-01 03:45] LABS: Calcium 7.5 mg/dL (8.5-10.1); Carbon Dioxide 23.5 meq/L (21.0-32.0); Potassium 4.9 meq/L (3.5-5.1)
[2018-02-01] MEDS: Sod Chloride 0.9% Inj 1,000 ML IV.CONT SCH ×2 (04:39→16:28)
[2018-02-01] MEDS: Heparin - SQ 10,000 UNITS/ML Vial SQ SCH ×2 (05:42→16:27)
--- NOTE | 2018-02-01 07:42 | CT ---
EXAM DATE: 02/01/2018 7:31 AM EST AGE/SEX: 77 years / Male INDICATIONS: Dyspnea, positive D-dimer CLINICAL DATA: This is the patient's initial encounter. Patient reports that signs and symptoms have been present for 1 day and indicates a pain score of 0/10. MEDICAL/SURGICAL HISTORY: Diabetes. Cardiovascular disease. Congestive heart failure. CABG. RADIATION DOSE: 10.65 CTDI (mGy) COMPARISON: [facility], CT CHEST W/O CONTRAST, 01/31/2018. . TECHNIQUE: Volumetric scanning was performed using a multi-row detector CT scanner during bolus infu rajiv of 75 ml Visipaque 320 (iodixanol) nonionic water-soluble contrast as a single exam dose. The d yas was post processed with a variety of visualization algorithms including full volume maximum inten sity projection and sliding thin slab reformation. Using automated exposure control and adjustment o f the mA and/or kV according to patient size, radiation dose was kept as low as reasonably achievable to obtain optimal diagnostic quality images. DICOM format image data is available electronically fo r review and comparison. FINDINGS: The examination is of excellent diagnostic quality. No pulmonary embolus is identified. The heart is enlarged. The patient is post median sternotomy and valvular replacement. The examinatio n does demonstrate mild aneurysmal dilation of the distalmost portion of the ascending aorta and prox imal arch. Maximum dimension is 4.5 cm. There is no significant hilar or mediastinal adenopathy. Ther e is moderate atherosclerotic plaquing in the coronary arteries. The heart is enlarged. No axillary a denopathy is seen. Imaging through the pulmonary parenchyma demonstrates some minimal atelectatic changes within the garry g bases. The lungs are otherwise clear. CONCLUSION: 1. No pulmonary embolus identified. 2. Cardiomegaly. 3. Atherosclerotic plaquing in the coronary arteries. 4. The patient is post valvular replacement. 5. 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 6. Minimal atelectatic changes within the lung bases. Electronically signed by: Cecil Fairchidl MD 02/01/2018 7:40 AM EST
[2018-02-01] MEDS: diazePAM 5 MG Tablet PO SCH ×2 (09:24→21:41)
[2018-02-01] MEDS: QUEtiapine 25 MG Tablet PO SCH ×2 (09:24→21:41)
[2018-02-01] MEDS: Senna/Docusate Sodium 8.6/50 MG Tablet PO SCH ×2 (09:24→21:41)
[2018-02-01] MEDS: Pantoprazole Sodium 20 MG DR Tablet PO SCH (09:24)
--- NOTE | 2018-02-01 15:33 | ECG ---
Date Performed: 01/31/2018 Time Performed: 17:58:19 PTAGE: 77 years EKG: ELECTRONIC ATRIAL PACEMAKER NONSPECIFIC ST & T-WAVE ABNORMALITY ABNORMAL ECG INTERPRETATION BASED ON A DEFAULT AGE OF 40 YEARS PREVIOUS TRACING : 12/23/2017 19.29 Since the previous tracing, no significant change not ed DOCTOR: Horacio Lan Interpretating Date/Time 02/01/2018 15:30:24
[2018-02-01] MEDS ORDERED: Warfarin Consult Pharmacy OTHER PRN (16:16)
--- NOTE | 2018-02-01 17:42 | P.PNADD ---
Addendum to Inpatient Note Reason for Addendum: Additional Documentation Additional information: Chest CTA negative for pulmonary embolism. The patient says that he has a catheterization scheduled at the [place] on 16 February. He is interested in being transferred to the [place] facility for further workup. [facility] Continue to trend troponins and monitor on telemetry.
[2018-02-01 23:37] LABS: Magnesium 1.9 mg/dL (1.5-2.5)
[2018-02-02 05:03] LABS: Baso % (Auto) 0.1 % (0.0-2.0); Eos # (Auto) 0.2 th/mm3 (0.0-0.4); Eos % (Auto) 3.2 % (0.0-4.0); Lymph # (Auto) 0.9 th/mm3 (1.0-4.8); Lymph % (Auto) 11.5 % (9.0-44.0); Mean Corpuscular HGB Conc 33.4 % (32.0-36.0); Mean Corpuscular Hemoglobin 29.2 pg (27.0-34.0); Mean Corpuscular Volume 87.4 fL (80.0-100.0); Mono # (Auto) 0.5 th/mm3 (0.0-0.9); Mono % (Auto) 7.2 % (0.0-8.0); Neut # (Auto) 5.8 th/mm3 (1.8-7.7); Platelet Count 96 th/mm3 (150-450); Red Cell Distribution Width 14.4 % (11.6-17.2); White Blood Count 7.4 th/mm3 (4.0-11.0)
[2018-02-02 05:27] LABS: Calcium 7.7 mg/dL (8.5-10.1); Carbon Dioxide 25.3 meq/L (21.0-32.0); Potassium 4.7 meq/L (3.5-5.1)
[2018-02-02] MEDS: Sod Chloride 0.9% Inj 1,000 ML IV.CONT SCH ×2 (05:46→09:23)
[2018-02-02] MEDS: Pantoprazole Sodium 20 MG DR Tablet PO SCH (09:22)
[2018-02-02] MEDS: diazePAM 5 MG Tablet PO SCH ×2 (09:22→20:37)
[2018-02-02] MEDS: Senna/Docusate Sodium 8.6/50 MG Tablet PO SCH ×2 (09:22→20:37)
[2018-02-02] MEDS: QUEtiapine 25 MG Tablet PO SCH ×2 (09:22→20:37)
[2018-02-02 10:19] LABS: INR 2.7 Ratio; Prothrombin Time 27.3 sec (9.8-11.6)
--- NOTE | 2018-02-02 13:19 | P.PNIM ---
Subjective Interval history: The patient was feeling better with the oxygen on. His family was at the bedside. They were interested in obtaining home oxygen. They said they would be able to follow-up with the patient's commercial construction estimator after discharge. Discussed with nursing. Physical Exam Vital signs: Vital Signs 02/01/18 16:00 02/01/18 17:40 02/01/18 18:36 Temperature 98.0 F Pulse Rate 77 60 Respiratory Rate 20 Blood Pressure 134/65 Pulse Oximetry 96 97 Pulse Oximetry [Resting on Room Air] 02/01/18 20:00 02/02/18 00:00 02/02/18 04:00 Temperature 97.8 F 98.1 F Pulse Rate 54 L 56 L Respiratory Rate 20 20 Blood Pressure 120/64 104/57 L Pulse Oximetry 96 99 97 Pulse Oximetry [Resting on Room Air] 02/02/18 08:00 02/02/18 12:00 02/02/18 12:45 Temperature 97.8 F 98.1 F Pulse Rate 63 60 Respiratory Rate 20 20 Blood Pressure 139/74 106/59 L Pulse Oximetry 99 97 Pulse Oximetry [Resting on Room Air] 88 L Intake & Output 02/01/18 02/02/18 02/02/18 18:59 06:59 18:59 Intake Total 1000 / 1000 1960 / 1960 Output Total 850 / 850 800 / 800 Balance 150 / 150 1160 / 1160 Weight 108 kg 108.1 kg Intake: IV 1000 / 1000 1000 / 1000 NS Inj 1,000 ML @ 100 mls/hr IV 1000 / 1000 1000 / 1000 .CONT .Q10H [facility] Rx#:[id number] Oral 960 / 960 Output: Urine 850 / 850 800 / 800 Other: # Voids 1 Date of Last Bowel Movement 02/01/18 02/01/18 02/01/18 # Bowel Movements 1 Weight On Admission 108 kg Narrative: Gen: No acute distress Head: Normocephalic. Atraumatic. EENT: Pupils equal round and reactive to light. Nose without drainage. Airway intact. Throat without injection. Cardiovascular: Regular rate and rhythm. No murmurs, rubs or gallops. Respiratory: Lungs clear to auscultation bilaterally. No wheezes or rhonchi. Abdomen: Soft, nontender, nondistended. No peritoneal signs. Musculoskeletal: No gross deformities. No edema. Skin: No obvious rashes or erythema. Neuro: Sensory and motor grossly intact. Cranial nerves II through XII grossly intact. Results - Labs CBC & Chem 7: 02/02/18 04:44 02/02/18 04:44 Laboratory Results - last 24 hr 02/01/18 02/01/18 02/02/18 16:30 22:45 04:44 WBC RBC Hgb Hct MCV MCH MCHC RDW Plt Count MPV Prelim Diff (Auto) Neut % (Auto) Lymph % (Auto) [place] % (Auto) Eos % (Auto) Baso % (Auto) Neut # (Auto) Lymph # (Auto) [place] # (Auto) Eos # (Auto) Baso # (Auto) WBC Differential Diff Scan Differential Comment PT INR Sodium Potassium Chloride Carbon Dioxide Anion Gap BUN Creatinine Estimated GFR Random Glucose Calcium Magnesium 1.9 Troponin I Less than 0.02 L Less than 0.02 L Less than 0.02 L 02/02/18 02/02/18 02/02/18 04:44 04:44 09:27 WBC 7.4 RBC 4.80 Hgb 14.0 Hct 42.0 MCV 87.4 MCH 29.2 MCHC 33.4 RDW 14.4 Plt Count 96 L MPV 8.0 Prelim Diff (Auto) Slide review pending Neut % (Auto) 78.0 H Lymph % (Auto) 11.5 [place] % (Auto) 7.2 Eos % (Auto) 3.2 Baso % (Auto) 0.1 Neut # (Auto) 5.8 Lymph # (Auto) 0.9 L [place] # (Auto) 0.5 Eos # (Auto) 0.2 Baso # (Auto) 0.0 WBC Differential . Diff Scan Auto diff confirmed Differential Comment . PT 27.3 H INR 2.7 Sodium 145 Potassium 4.7 Chloride 117 H Carbon Dioxide 25.3 Anion Gap 3 L BUN 36 H Creatinine 1.37 H Estimated GFR 50 L Random Glucose 119 H Calcium 7.7 L Magnesium Troponin I Assessment and Plan - Plan Shortness of breath/weakness VQ scan showed intermediate probability for pulmonary embolus. CTA negative for PE. Atelectasis was noted. BNP/Trops wnl. Failed home oxygen walk test. -home oxygen being arranged. Case management assistance appreciated. -pt will follow up with [place] commercial construction estimator to proceed with planned cardiac catheterization. Atrial fibrillation EKG shows bigeminy, no signs of ischemia. -Continue home medications. -telemetry. CAD/CHF Follows with cardiology at the [place]. Cath planned on 02/16. -follow up with the [place] upon discharge. -continue cardiac regimen. -home oxygen as above. Acute kidney injury Creatinine 2.01, baseline 1.5. Improved with IVFs and holding of diuretics and ACEi. -d/c IVFs. -follow up with PCP. PPx: Heparin Discharge Planning: D/c with home oxygen and follow up with [place] commercial construction estimator
[2018-02-03 07:24] LABS: INR 2.2 Ratio; Prothrombin Time 21.9 sec (9.8-11.6)
[2018-02-03] MEDS: Pantoprazole Sodium 20 MG DR Tablet PO SCH (08:28)
[2018-02-03] MEDS: diazePAM 5 MG Tablet PO SCH (08:28)
[2018-02-03] MEDS: Senna/Docusate Sodium 8.6/50 MG Tablet PO SCH (08:28)
[2018-02-03] MEDS: QUEtiapine 25 MG Tablet PO SCH (08:28)
--- NOTE | 2018-02-03 08:46 | P.DCO ---
- Physical Therapy Order: Evaluate and treat, Improve ambulation, Strength and gait training - Home Health Nursing Order: Medical education, Signs/symptoms of disease process, CHF education, Oxygen administration education, Medication education-adverse effect, Nursing assessment with vital signs - Case Management Consult Case Management Consult-Home Health: Yes - Certification I have seen patient Domenico De Page on 02/03/18. My clinical findings support the need for the requested home health care services because: Limited mobility due to disease progression, Patient has SOB, Deconditioned with increased weakness I certify that my clinical findings support that this patient is homebound because: Unsteady gait/balance, Unsafe to leave home unassisted
--- NOTE | 2018-02-03 08:50 | P.DS ---
Date of admission: 01/31/18 23:10 Primary care physician: [facility] Anticipated date of discharge: 02/03/18 Brief History from admission: An 7-year-old male with a past medical history significant for coronary disease , atrial fibrillation anticoagulation on Coumadin, hypertension, hyperlipidemia , BPH and CHF presents to the emergency department for the evaluation of weakness and shortness of breath. The patient reports that he began feeling weak with accompanying shortness of breath several weeks ago. Today he was reportedly watching TV in a chair and could not get up secondary to his weakness and shortness of breath. He called EMS and was sent to the emergency department for further evaluation. He denies any chest pain. No abdominal pain. No nausea/vomiting/diarrhea. No fever/chills. No focal neurologic deficits. Patient update on day of discharge: The pt stayed overnight in order to have home oxygen arranged. He will also work with physical therapy and have home health care arranged. Discussed with nursing. Pt with no acute complaints. DS: Diagnosis - Discharge Diagnosis (1) Acute dyspnea Status: Acute (2) Shortness of breath Status: Acute DS: Summary Hospital Course: Shortness of breath/weakness VQ scan showed intermediate probability for pulmonary embolus. CTA negative for PE. Atelectasis was noted. BNP/Trops wnl. Failed home oxygen walk test. Case management was consulted and assisted with home oxygen and home health care. The pt will follow up with his [place] real estate appraiser to proceed with planned cardiac catheterization. The pt worked with physical therapy. CAD/CHF Follows with cardiology at the [place]. Cath planned on 02/16. EKG without acute ischemia. [facility] and will continue his home cardiac regimen. Acute kidney injury Creatinine improved with IVFs and holding of diuretics and ACEi. The pt will resume his home meds and will follow up with his PCP upon discharge. - Time Spent with Patient Total time spent providing and/or coordinating discharge services: Less than 30 minutes - Quality: VTE Deep Vein Thrombosis/Pulmonary Embolism Present on Admission: No Exam Vital signs: Vital Signs 02/02/18 09:00 02/02/18 12:00 02/02/18 12:45 Temperature 98.1 F Pulse Rate 60 60 Respiratory Rate 20 Blood Pressure 106/59 L Pulse Oximetry 97 Pulse Oximetry [Resting on Room Air] 88 L Pulse Oximetry [Resting with Oxygen] 02/02/18 16:00 02/02/18 16:55 02/02/18 17:36 Temperature 97.7 F Pulse Rate 60 Respiratory Rate 20 Blood Pressure 109/61 Pulse Oximetry 96 93 L Pulse Oximetry [Resting on Room Air] Pulse Oximetry [Resting with Oxygen] 93 L 02/02/18 20:00 02/03/18 00:00 02/03/18 04:00 Temperature 98.8 F 98.1 F 98.0 F Pulse Rate 65 49 L 51 L Respiratory Rate 18 Blood Pressure 112/59 L 106/61 107/59 L Pulse Oximetry 96 95 95 Pulse Oximetry [Resting on Room Air] Pulse Oximetry [Resting with Oxygen] Intake & Output 02/02/18 02/03/18 02/03/18 18:59 06:59 18:59 Intake Total 1040 / 1040 480 / 480 Balance 1040 / 1040 480 / 480 Intake: Oral 1040 / 1040 480 / 480 Other: # Voids 925 Date of Last Bowel Movement 02/01/18 02/03/18 # Bowel Movements 0 Narrative: Gen: No acute distress Head: Normocephalic. Atraumatic. EENT: Pupils equal round and reactive to light. Nose without drainage. Airway intact. Throat without injection. Cardiovascular: Regular rate and rhythm. No murmurs, rubs or gallops. Respiratory: Lungs clear to auscultation bilaterally. No wheezes or rhonchi. Abdomen: Soft, nontender, nondistended. No peritoneal signs. Musculoskeletal: No gross deformities. No edema. Skin: No obvious rashes or erythema. Neuro: Sensory and motor grossly intact. Cranial nerves II through XII grossly intact. Results Procedures completed during hospitalization: None Labs on day of discharge: Labs from last 24 hours 02/03/18 02/02/18 06:51 09:27 PT 21.9 H 27.3 H INR 2.2 2.7 - Impressions ITS Impressions Chest X-Ray 01/31/18 17:59 CONCLUSION: Pacer, compensated cardiomegaly, stable from 12/2017 Pulmonary Perfusion Imaging 01/31/18 19:18 CONCLUSION: 1. Intermediate probability for pulmonary embolism. Chest CT 01/31/18 21:11 CONCLUSION: 1. Dependent opacity in the lungs is probably atelectasis. No definite evidence for pneumonia. No pleural or pericardial effusion. No adenopathy. 2. Postoperative changes of median sternotomy with aortic valve replacement and pacer lead placement. Cardiomegaly. Chest CTA 02/01/18 00:00 CONCLUSION: 1. No pulmonary embolus identified. 2. Cardiomegaly. 3. Atherosclerotic plaquing in the coronary arteries. 4. The patient is post valvular replacement. 5. 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 6. Minimal atelectatic changes within the lung bases. Discharge Plan - Discharge Disposition Patient Disposition: 01 Discharge Home - Discharge Condition Condition: Stable - Discharge Order Discharge Orders: Discharge Order (Routine); Ordered 02/02/18 Ordered By: Valentin Todd - Discharge Details Anticipated Discharge Date: 02/02/18 Discharge Comment: OK to discharge home once home oxygen has been set up - Physicians Team Primary Care Provider: [facility] Attending Provider: Valentin Todd
[2018-02-03 12:52] VITALS: BP 118/64; PULSE 60; RESP 18; TEMP 97.6; O2SAT 97
== END 2018-02-03 14:45 ==
LOC: NEPE 17:54 → NEDA 23:10 → NEDH 02-01 02:53 → NEDA 02-01 06:29 → H7ONC 02-01 08:50
PROVIDERS: ADMIT Hospitalist; ATTEND Hospitalist